=== PATIENT | male | born 1960 | race Caucasian/White ===

== ENCOUNTER 2018-07-14 16:45 | Inpatient (IN) ==
[2018-07-14] MEDS ORDERED: 0.9 % SODIUM CHLORIDE 1,000 ML IV ONE (16:59)
[2018-07-14] MEDS ORDERED: IPRATROPIUM/ALBUTEROL 3 ML AMPUL.NEB NEB ONE ×2 (16:59→17:45)
--- NOTE | 2018-07-14 17:05 | Emergency Department Note ---
General Adult HPI - General Chief complaint: Cold/Flu Symptoms Stated complaint: Cough, body aches Time Seen by Provider: 07/14/18 16:56 Source: patient Mode of arrival: ambulatory Limitations: no limitations - History of Present Illness HPI Narrative: 58-year-old male presents with cough, shortness of breath, and generally not feeling well for the last 3-4 days. He arrived with oxygen saturations of 78% on room air in triage. States he has had a bad cough but cannot cough anything up. Has body aches all over. Positive chills, unknown fever. No nausea, vomiting, or diarrhea. No sore throat or ear pain. States his son was recently diagnosed with pneumonia. Associated symptoms: Reports: cough, diaphoresis, fever/chills, malaise, shortness of breath. Denies: confusion, chest pain, headaches, loss of appetite , nausea/vomiting, rash, syncope, weakness - Related Data Allergies Allergy/AdvReac Type Severity Reaction Status Date / Time No Known Drug Allergies Allergy Verified 07/14/18 16:46 Review of Systems All systems ED: reviewed and negative except as stated. Past Medical History - Past Medical History [facility] Narrative: Medical History Laceration of palm without complication (Acute) Nausea, vomiting and diarrhea (Acute) Headache (Acute) Medical history: Reports: no medical history, hypertension, other (Emphysema.). Denies: asthma, cancer, CVA, DM, hyperlipidemia, myocardial infarction, thyroid disease Surgical history ED: Reports: non-contributory - Social History smoking status: Current every day smoker Alcohol use: Reports: None Drug use: Reports: none. Denies: marijuana Physical Exam Limitations: no limitations General appearance: alert, other (Moderate distress on arrival with labored breathing and oxygen saturations in the high 70s on room air. Unkept, clothes and skin very dirty.) Head: atraumatic, normocephalic, normal inspection Eye: Present: normal appearance. Absent: conjunctival injection ENT: normal oropharynx, mucous membranes moist, TM's normal bilaterally, normal external ear exam Neck: Present: normal inspection, trachea midline. Absent: tenderness, lymphadenopathy Chest: Present: symmetric chest wall rise Respiratory: Present: respiratory distress (Moderate respiratory distress on arrival with labored breathing, oxygen saturations on the the 70s on room air, mild accessory muscle use), wheezes (Lung sounds diminished throughout and expiratory wheezing), accessory muscle use. Absent: stridor Cardiovascular: Present: regular rate, normal heart sounds Extremities: Present: normal inspection. Absent: pedal edema Neurological: Present: alert, oriented X3 Psychiatric: Present: normal affect, normal mood Skin: Present: warm, dry, intact, normal color Course Course Narrative: Patients continue working hard to breathe throughout his ER visit. He is currently 88% on 6 L. We are going to switch him over to some BiPAP. At 1840 I did speak with the hospitalist, Dr. Guzman who agrees to accept this patient. Vital Signs Temperature 97.1 F 07/14/18 16:45 Pulse Rate 96 H 07/14/18 16:45 Respiratory Rate 40 H 07/14/18 16:45 Blood Pressure 168/121 07/14/18 16:45 Pulse Oximetry (%) 76 L 07/14/18 16:45 Temperature 97.1 F 07/14/18 16:45 Pulse Rate 90 07/14/18 18:39 Respiratory Rate 27 H 07/14/18 18:39 Blood Pressure 211/121 07/14/18 18:38 Pulse Oximetry (%) 100 07/14/18 18:39 Medical Decision Making - Lab Data Lab results reviewed: Yes I reviewed the patient's lab results. Result diagrams: 07/14/18 17:25 07/14/18 17:25 Lab Results 07/14/18 07/14/18 07/14/18 Range/Units 17:21 17:25 17:25 WBC 10.9 (4.5-11.0) K/mcL RBC 4.95 (4.50-5.90) M/mcL Hgb 16.4 (13.5-16.5) g/dL Hct 47.7 (41.0-55.0) % POC Hct 51.0 (41.0-55.0) % MCV 96.3 (80.0-100.0) fL MCH 33.0 (26.0-34.0) pg MCHC 34.3 (31.0-36.0) g/dL RDW 13.1 (11.5-14.5) % Plt Count 231 (140-440) K/mcL MPV 9.7 (7.4-10.4) fL Gran % 85.0 H (38.0-78.0) % Lymph % (Auto) 6.1 L (15.5-49.0) % Centre % (Auto) 8.7 (1.0-12.0) % Eos % (Auto) 0 (0.0-7.0) % Baso % (Auto) 0.2 (0.0-2.0) % Gran # 9.3 H (1.8-8.0) K/mcL Lymph # (Auto) 0.7 L (1.5-4.8) K/mcL Centre # (Auto) 0.9 (0.1-0.9) K/mcL Eos # (Auto) 0 (0.0-0.7) K/mcL Baso # (Auto) 0 (0.0-0.3) K/mcL VBG Lactic Acid 2.4 H (0.5-2.0) mmol/L POC Sodium 135 (133-145) mmol/L Sodium 136 (133-145) mmol/L POC Potassium 3.0 L (3.3-5.1) mmol/L Potassium 3.2 L (3.3-5.1) mmol/L POC Chloride 89 L (96-108) mmol/L Chloride 89 L (96-108) mmol/L Carbon Dioxide 30 (22-30) mmol/L POC Total CO2 33 H (22-30) mmol/L Anion Gap 17.0 H (8-16) POC BUN 18 (6-20) mg/dl BUN 17 (6-20) mg/dl Creatinine 1.4 H (0.7-1.2) mg/dl POC Creatinine 1.3 H (0.7-1.2) mg/dl GFR Calculation 55 Glucose 112 H (70-105) mg/dL POC Glucose 110 H (70-105) mg/dL Calcium 9.3 (8.6-10.4) mg/dl POC WB Ioniz Calcium 1.06 L (1.16-1.32) mmol/L Total Bilirubin 0.4 (0.0-1.0) mg/dL AST 39 H (0-37) U/l ALT 16 (0-40) U/l Alkaline Phosphatase 67 (39-117) U/L Troponin T (0-0.03) ng/ml Total Protein 7.4 (5.9-8.4) gm/dL Albumin 4.3 (3.2-5.2) gm/dL Globulin 3.1 (2.2-3.7) gm/dL Albumin/Globulin Ratio 1.4 (1.0-2.3) 07/14/ Range/Units 17:25 WBC (4.5-11.0) K/mcL RBC (4.50-5.90) M/mcL Hgb (13.5-16.5) g/dL Hct (41.0-55.0) % POC Hct (41.0-55.0) % MCV (80.0-100.0) fL MCH (26.0-34.0) pg MCHC (31.0-36.0) g/dL RDW (11.5-14.5) % Plt Count (140-440) K/mcL MPV (7.4-10.4) fL Gran % (38.0-78.0) % Lymph % (Auto) (15.5-49.0) % Centre % (Auto) (1.0-12.0) % Eos % (Auto) (0.0-7.0) % Baso % (Auto) (0.0-2.0) % Gran # (1.8-8.0) K/mcL Lymph # (Auto) (1.5-4.8) K/mcL Centre # (Auto) (0.1-0.9) K/mcL Eos # (Auto) (0.0-0.7) K/mcL Baso # (Auto) (0.0-0.3) K/mcL VBG Lactic Acid (0.5-2.0) mmol/L POC Sodium (133-145) mmol/L Sodium (133-145) mmol/L POC Potassium (3.3-5.1) mmol/L Potassium (3.3-5.1) mmol/L POC Chloride (96-108) mmol/L Chloride (96-108) mmol/L Carbon Dioxide (22-30) mmol/L POC Total CO2 (22-30) mmol/L Anion Gap (8-16) POC BUN (6-20) mg/dl BUN (6-20) mg/dl Creatinine (0.7-1.2) mg/dl POC Creatinine (0.7-1.2) mg/dl GFR Calculation Glucose (70-105) mg/dL POC Glucose (70-105) mg/dL Calcium (8.6-10.4) mg/dl POC WB Ioniz Calcium (1.16-1.32) mmol/L Total Bilirubin (0.0-1.0) mg/dL AST (0-37) U/l ALT (0-40) U/l Alkaline Phosphatase (39-117) U/L Troponin T < 0.01 (0-0.03) ng/ml Total Protein (5.9-8.4) gm/dL Albumin (3.2-5.2) gm/dL Globulin (2.2-3.7) gm/dL Albumin/Globulin Ratio (1.0-2.3) - Radiology Data Radiology results reviewed: Yes I reviewed the patient's radiology results. Disposition Pt seen by DIESEL ENGINE INSPECTOR/PA only: No Clinical Impression: SOB (shortness of breath), COPD (chronic obstructive pulmonary disease), Pneumonia, Hypoxia, Hypokalemia Disposition: Xfer As Inpt ([facility]) Condition: Serious Referrals: No,PCP [Primary Care Provider] - Time of Disposition: 18:41
--- NOTE | 2018-07-14 17:41 | XRay Report ---
CLINICAL INFORMATION: dyspnea COMPARISON: 11/30/2017 FINDINGS: Heart size, mediastinum and pulmonary vessels are normal. Moderate COPD changes are again noted. Scattered small calcified granulomas in the perihilar regions seen - as before. The bronchovascular markings in the right upper lobe are more prominent than on previous study which may indicate a developing infiltrate. Africa B lines are seen in the lateral bases. No effusions IMPRESSION: COPD changes. Possible developing right upper lobe infiltrate. If there is clinical support for pneumonia, suggest two-view follow-up chest x-ray one to two days Interpreted and Authenticated by: Keagan Arzola 07/14/18
[2018-07-14 18:01] LABS: Basophils # (Auto) 0 K/mcL (0.0-0.3); Basophils % (Auto) 0.2 % (0.0-2.0); Eosinophils # (Auto) 0 K/mcL (0.0-0.7); Eosinophils % (Auto) 0 % (0.0-7.0); Lymphocytes # (Auto) 0.7 K/mcL (1.5-4.8); Lymphocytes % (Auto) 6.1 % (15.5-49.0); Mean Cell Volume 96.3 fL (80.0-100.0); Mean Corpuscular HGB Conc 34.3 g/dL (31.0-36.0); Monocytes # (Auto) 0.9 K/mcL (0.1-0.9); Monocytes % (Auto) 8.7 % (1.0-12.0); Platelet Count 231 K/mcL (140-440); RBC 4.95 M/mcL (4.50-5.90); Red Cell Distribution Width 13.1 % (11.5-14.5)
[2018-07-14 18:25] LABS: ALT/SGPT 16 U/l (0-40); Albumin 4.3 gm/dL (3.2-5.2); Albumin/Globulin Ratio 1.4 (1.0-2.3); Alkaline Phosphatase 67 U/L (39-117); Blood Urea Nitrogen 17 mg/dl (6-20)
[2018-07-14] MEDS ORDERED: LACTATED RINGERS 1,000 ML IV ONE (18:26)
[2018-07-14] MEDS ORDERED: AZITHROMYCIN 500 MG in DEXTROSE 5% IN WATER 250 ML IV ONE (18:27)
[2018-07-14] MEDS ORDERED: POTASSIUM CHLORIDE 20 MEQ in DEXTROSE 5% IN WATER 250 ML IV ONE (18:28)
--- NOTE | 2018-07-14 18:40 | Emergency Department Note ---
ED Note Addendum Note Addendum: I discussed this case with the mid-level provider and agree with admission to the ICU on BiPAP.
[2018-07-14] MEDS ORDERED: FUROSEMIDE 40 MG/4 ML VIAL IV ONE (18:59)
--- NOTE | 2018-07-14 19:49 | Internal Med History&Physical ---
Medical - H&P: [facility] Patient information: Note initiated : 07/14/18 at 7:46 pm Service Date, if different from initiated Date: [] Patient: Breezy Barnard a 58 y/o M admitted on for Cough, body aches. Chief Complaint: [] History of present illness: Mr. Barnard is a 58 year old M who presents with cough shortness of breath malaise for 3-4 days. He reports he is had a cough for about 3 days which she says is dry. He has been around a relative that was sick, however, he denies any fevers or chills. Denies any myalgias does have worsening knee pain. That is a chronic injury and is chronic chronic back pain. He has shortness of breath both states that it actually is little bit better than it was a couple days ago. He says he had a hard time sleeping the past 3 nights that the main reason he came in. He denies having any shortness of breath when he lays flat on his back, no orthopnea. Denies any edema. Denies any history of heart or lung disease. States he is urinating just fine and that is of pale yellow. Last time he saw a primary care provider was he says 20 years ago. When he arrived in the ER his oxygen saturations were in the high 70s on room air. He did receive several breathing treatments which she says did help him but he still was quite tachypneic and using accessory muscles and was subsequently put on BiPAP. Chest x-ray with some cephalization and Africa B line patient was given 40 of Lasix and put out 1000 in the Sr bag. I saw him in the ICU he had 400 additional cc in the bag. Also found to be hypertensive in the ED. He does not have any known medical conditions and does not take any home medications. Review of Systems: Pertinent positive as above . denies headache/fever/chills/nausea/vomiting/ chest or abdominal pain/diarrhea. 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 Is at home with mother and brother Is unemployed, works on cars on the house Medical - H&P: Meds Home Medications Medication Instructions Recorded Confirmed Type No Known Home Meds 07/14/18 07/14/18 History Allergies Allergy/AdvReac Type Severity Reaction Status Date / Time No Known Drug Allergies Allergy Verified 07/14/18 16:46 Medical - H&P: Exam - Constitutional Vitals: Temp Pulse Resp BP Pulse Ox 97.1 F 89 27 H 193/118 94 07/14/18 16:45 07/14/18 19:42 07/14/18 19:42 07/14/18 19:31 07/14/18 19:42 Exam: General: Alert, Awake, disheveled, no acute distress at this time Eyes/N/T: EOMI, PEERL, Head/Neck: neck supple, hepatojugular reflux, normocephalic atraumatic CV: RRR, possible gallop difficult to distinguish given his tachypnea, no murmurs Pulm: Significantly diminished bilaterally, shallow breathing, mild fine rales bilaterally, no wheezing Abd: soft, nontender, +BS x4 Ext: no clubbing/cyanosis/edema Neuro: Alert, no focal deficits, moves all extremities, CN 2-12 grossly intact, symmetrical strength b/l upper/lower, sensations intact b/l upper/lower Skin: warm/dry Medical - H&P: Reslt - Labs CBC & Chem 7: 07/14/18 17:25 07/14/18 17:25 Labs: Short CBC 07/14/18 Range/Units 17:25 WBC 10.9 (4.5-11.0) K/mcL Hgb 16.4 (13.5-16.5) g/dL Hct 47.7 (41.0-55.0) % Plt Count 231 (140-440) K/mcL BMP 07/14/18 17:25 Sodium 136 Potassium 3.2 L Chloride 89 L Carbon Dioxide 30 BUN 17 Creatinine 1.4 H Glucose 112 H Calcium 9.3 Cardiac Enzymes 07/14/18 Range/Units 17:25 Troponin T < 0.01 (0-0.03) ng/ml Liver Function 07/14/18 Range/Units 17:25 Total Bilirubin 0.4 (0.0-1.0) mg/dL AST 39 H (0-37) U/l ALT 16 (0-40) U/l Alkaline Phosphatase 67 (39-117) U/L Albumin 4.3 (3.2-5.2) gm/dL - Impressions EKG sinus tachycardia Chest x-ray with COPD changes, cephalization. Radiology read with questionable infiltrate right upper lobe and some curly B-lines. Medical - H&P: A/P - Narrative A/P Narrative: A: *Acute hypoxic respiratory failure -on bipap -low PCT, nonproductive cough, no fevers *AECHF, on likely chronic: *Lactic acidosis: 2/2 hypoxia *RADHA vs CKD (unknown baseline) *Hypokalemia: *Tobacco abuse *HTN: *Has not seen a PCP in 20yrs P: -Bipap support, wean -s/p IV lasix, i/o's and weights -echo pending -IS -nitro bid, prn bp meds -electrolyte replete -urine lytes -records from [facility] -smoking cessation counseling -ppx: lovenox
[2018-07-14] MEDS ORDERED: POTASSIUM CHLORIDE 20 MEQ TABLET PO ONE ×3 (20:03→20:47)
[2018-07-14 20:09] LABS: Appearance,Urine CLEAR; Bacteria,Urine 0 /hpf (0); Bilirubin,Urine NEG (NEG); Color,Urine YELLOW; Glucose,Urine (UA) NEGATIVE (NEG); Leukocyte Esterase,Urine NEG /uL (NEG); Mucus,Urine FEW /hpf (0); Protein,Urine 100 mg/dL (NEG); Specific Gravity,Urine 1.013 (1.000-1.035); Urine Blood 0.03 mg/dL (<0.03); Urine Hyaline Cast 13 /lpf (0-2); Urine RBC 1 /hpf (0-1); Urine Squamous Epithelial Cell 0 /hpf (0-4); Urine WBC 3 /hpf (0-4); Urobilinogen,Urine NEG (NEG)
[2018-07-14] MEDS ORDERED: NITROGLYCERIN 5 MG (0.2 MG/HR) PATCH TOPICAL ONE ×3 (20:26→20:47)
[2018-07-14] MEDS ORDERED: ACETAMINOPHEN 325 MG TABLET PO PRN (20:37)
[2018-07-14] MEDS ORDERED: ONDANSETRON 4 MG/2 ML VIAL IV PRN ×2 (20:37→20:47)
[2018-07-14] MEDS ORDERED: IPRATROPIUM/ALBUTEROL 3 ML AMPUL.NEB NEB PRN ×2 (20:37→20:47)
[2018-07-14] MEDS ORDERED: LABETALOL HCL 20 MG/4 ML SYRINGE IV PRN (20:41)
[2018-07-14] MEDS ORDERED: FAMOTIDINE 20 MG TABLET PO SCH ×2 (21:00)
[2018-07-14] MEDS: LABETALOL 5 MG/ML ML IV PRN ×2 (21:05→22:31)
[2018-07-14] MEDS: 0.9 % SODIUM CHLORIDE 10 ML SYRINGE IV SCH (21:13)
[2018-07-14] MEDS ORDERED: 0.9 % SODIUM CHLORIDE 10 ML SYRINGE IV SCH (22:00)
[2018-07-14] MEDS ORDERED: LORazepam 2 MG/ML VIAL IV ONE (23:44)
[2018-07-14] MEDS ORDERED: LORazepam 2 MG/ML VIAL ONE (23:45)
[2018-07-15] MEDS ORDERED: IPRATROPIUM/ALBUTEROL 3 ML AMPUL.NEB NEB ONE (00:17)
[2018-07-15] MEDS ORDERED: LORazepam 2 MG/ML VIAL ONE (00:36)
[2018-07-15] MEDS ORDERED: LORazepam 2 MG/ML VIAL IV ONE (00:45)
[2018-07-15] MEDS ORDERED: IPRATROPIUM/ALBUTEROL 3 ML AMPUL.NEB NEB SCH (01:00)
[2018-07-15] MEDS ORDERED: MIDAZOLAM 5 MG/5 ML VIAL IV ONE (01:04)
[2018-07-15] MEDS ORDERED: fentaNYL 100 MCG/2 ML VIAL IV ONE ×2 (01:05→01:08)
[2018-07-15] MEDS ORDERED: MIDAZOLAM 2 MG/2 ML VIAL ONE ×2 (01:08→01:38)
[2018-07-15] MEDS ORDERED: MIDAZOLAM PF 50 MG in 0.9 % SODIUM CHLORIDE 90 ML IV SCH (01:15)
[2018-07-15] MEDS ORDERED: ONDANSETRON 4 MG/2 ML VIAL IV ONE (01:15)
--- NOTE | 2018-07-15 01:57 | Procedure Note ---
Procedures - Intubation Time out performed: Yes Date of Procedure: 07/15/18 Sedative: Versed Mg given: 6 ETT: ETCO2 Laryngoscope: Vida (3) ET tube size: 7.5 Tube secured depth (cm): 27 Tube secured location: lips Tube placement confirmation: confirmation by capnometry # of Attempts: 1 Patient tolerated procedure: well Intubation complications: none
[2018-07-15 02:41] LABS: Amphetamine Screen,Urine NONE DETECTED (NONDETECTED); Benzodiazepines Screen,Urine NONE DETECTED (NONDETECTED); Cocaine Screen,Urine NONE DETECTED (NONDETECTED); Opiate Screen,Urine NONE DETECTED (NONDETECTED); Oxycodone, Urine Screen NONE DETECTED (NONDETECTED)
[2018-07-15] MEDS: IPRATROPIUM/ALBUTEROL 3 ML AMPUL.NEB NEB SCH ×4 (02:54→18:54)
[2018-07-15] MEDS: PIPERACILLIN SODIUM/TAZOBACTAM 3.375 GM in DEXTROSE 5% IN WATER 50 ML IV SCH ×4 (03:30→17:43)
[2018-07-15] MEDS: OSELTAMIVIR PHOSPHATE 75 MG CAPSULE PO SCH ×3 (03:30→20:59)
[2018-07-15 05:56] LABS: Basophils # (Auto) 0 K/mcL (0.0-0.3); Basophils % (Auto) 0.2 % (0.0-2.0); Eosinophils # (Auto) 0 K/mcL (0.0-0.7); Eosinophils % (Auto) 0 % (0.0-7.0); Granulocytes % (Auto) 89.7 % (38.0-78.0); Lymphocytes # (Auto) 0.5 K/mcL (1.5-4.8); Lymphocytes % (Auto) 5.4 % (15.5-49.0); Mean Cell Volume 96.4 fL (80.0-100.0); Mean Corpuscular HGB Conc 33.6 g/dL (31.0-36.0); Monocytes # (Auto) 0.5 K/mcL (0.1-0.9); Monocytes % (Auto) 4.7 % (1.0-12.0); Platelet Count 184 K/mcL (140-440); RBC 4.47 M/mcL (4.50-5.90); Red Cell Distribution Width 13.3 % (11.5-14.5)
[2018-07-15] MEDS: 0.9 % SODIUM CHLORIDE 10 ML SYRINGE IV SCH ×4 (06:09→21:00)
[2018-07-15 06:43] LABS: ALT/SGPT 20 U/l (0-40); Albumin 3.6 gm/dL (3.2-5.2); Albumin/Globulin Ratio 1.2 (1.0-2.3); Alkaline Phosphatase 61 U/L (39-117); Bilirubin,Direct < 0.2 mg/dL (0.0-0.3); Blood Urea Nitrogen 22 mg/dl (6-20); Gamma Glutamyl Transpeptidase 22 U/L (8-61); Uric Acid 6.5 mg/dL (2.5-8.0)
--- NOTE | 2018-07-15 07:34 | Internal Med Progress Note ---
Medical - PN: Subj Patient information: Note initiated : 07/15/18 at 7:26 am Service Date, if different from initiated Date: [] Patient: Breezy Barnard 58 y/o M admitted on 07/14/18 for Cough, body aches. Chief Complaint: [] Interval history: Mr. Barnard is a 58 year old M who presents with cough shortness of breath malaise for 3-4 days. He reports he is had a cough for about 3 days which she says is dry. He has been around a relative that was sick, however, he denies any fevers or chills. Denies any myalgias does have worsening knee pain. That is a chronic injury and is chronic chronic back pain. He has shortness of breath both states that it actually is little bit better than it was a couple days ago. He says he had a hard time sleeping the past 3 nights that the main reason he came in. He denies having any shortness of breath when he lays flat on his back, no orthopnea. Denies any edema. Denies any history of heart or lung disease. States he is urinating just fine and that is of pale yellow. Last time he saw a primary care provider was he says 20 years ago. When he arrived in the ER his oxygen saturations were in the high 70s on room air. He did receive several breathing treatments which she says did help him but he still was quite tachypneic and using accessory muscles and was subsequently put on BiPAP. Chest x-ray with some cephalization and Africa B line patient was given 40 of Lasix and put out 1000 in the Sr bag. I saw him in the ICU he had 400 additional cc in the bag. Also found to be hypertensive in the ED. He does not have any known medical conditions and does not take any home medications. 07/15 Patient can continued to become more more tachypneic last night until the need for intubation was seen. Currently sedated on the vent. No acute distress. Titrating down FiO2. Respiratory rate 20s-30. ROS: Unable to obtain given sedated on the vent - Constitutional Vitals: Vital Signs Temp Pulse Resp BP Pulse Ox 100.0 F H 115 H 29 H 123/96 100 07/15/18 00:01 07/15/18 06:31 07/15/18 06:31 07/15/18 06:31 07/15/18 06:31 Period Temp Pulse Resp BP Sys/Madrigal Pulse Ox Last 24 Hr 97.1 F-100.0 F 78-115 15-55 93-218/69-139 76-100 Intake and Output 07/14/18 07/15/18 07/15/18 21:59 05:59 13:59 Intake Total 2553 / 2553 61 / 61 Output Total 2100 / 2099 380 / 380 Balance 453 / 453 -319 / -319 Weight 59.511 kg Intake & Output: Intake & Output 07/14/18 07/15/18 07/15/18 21:59 05:59 13:59 Intake Total 2553 / 2553 61 / 61 Output Total 2100 / 2099 380 / 380 Balance 453 / 453 -319 / -319 Weight 59.511 kg Intake: IV 2192 / 3 / Sodium Chloride 0.9% 1,000 ml @ 1000 / 1000 Wide Open IV .Q0M ONE Rx#: [id number] Lactated Ringers 1,000 ml @ 683 / 683 Wide Open IV BOLUS ONE Rx#: [id number] Versed 50 mg In Sodium Chloride 11 / 11 0.9% 90 ml @ 0.02 MG/KG/HR 2. 38 mls/hr IV Q24H [facility] Rx#: [id number] Zosyn 3.375 gm In Dextrose 5% 50 / 50 in Water 50 ml @ 100 mls/hr IV Q6H [facility] Rx#:[id number] Oral 360 / 360 Output: Urine Catheter Amount 1100 / 1100 380 / 380 Void Amount 1000 / 1000 Other: Meal Egg salad sandwich and fruit cup. Percent of Meal Consumed 100% Feeding Ability Independent Urine Appearance Clear Clear Uretheral (Sr) Clear Clear Urine Color Pale Dark Yellow Uretheral (Sr) Pale Pale Exam: General: sedated on vent, disheveled, no acute distress Eyes/N/T: PEERL, Head/Neck: neck supple, CV: mildly tachy but regular, no murmurs Pulm: diminished bilaterally but improving, mild and subtle fine rales bilaterally, no wheezing Abd: soft, +BS x4 Ext: no clubbing/cyanosis/edema Neuro: sedated on vent, moves all extremities spontaneously. Skin: warm/dry Medical - PN: Obj Da - Labs CBC & Chem 7: 07/15/18 03:40 07/15/18 03:40 Labs: Abnormal Lab Results 07/15/18 07/15/18 07/14/18 03:40 03:40 19:20 RBC 4.47 L Gran % 89.7 H Lymph % (Auto) 5.4 L Gran # 8.7 H Lymph # (Auto) 0.5 L VBG Lactic Acid POC Potassium Potassium POC Chloride Chloride 94 L POC Total CO2 Anion Gap BUN 22 H Creatinine 1.5 H POC Creatinine Glucose 121 H POC Glucose POC WB Ioniz Calcium AST 48 H Lactate Dehydrogenase 375 H NT-Pro-B Natriuret Pep Urine Protein 100 A Urine Ketones 5/tr A Urine Occult Blood 0.03 A Hyaline Casts 13 H 07/14/18 07/14/18 07/14/18 17:25 17:25 17:22 RBC Gran % 85.0 H Lymph % (Auto) 6.1 L Gran # 9.3 H Lymph # (Auto) 0.7 L VBG Lactic Acid POC Potassium 3.0 L Potassium 3.2 L POC Chloride 89 L Chloride 89 L POC Total CO2 33 H Anion Gap 17.0 H BUN Creatinine 1.4 H POC Creatinine 1.3 H Glucose 112 H POC Glucose 110 H POC WB Ioniz Calcium 1.06 L AST 39 H Lactate Dehydrogenase NT-Pro-B Natriuret Pep 34416.0 H Urine Protein Urine Ketones Urine Occult Blood Hyaline Casts 07/14/18 17:21 RBC Gran % Lymph % (Auto) Gran # Lymph # (Auto) VBG Lactic Acid 2.4 H POC Potassium Potassium POC Chloride Chloride POC Total CO2 Anion Gap BUN Creatinine POC Creatinine Glucose POC Glucose POC WB Ioniz Calcium AST Lactate Dehydrogenase NT-Pro-B Natriuret Pep Urine Protein Urine Ketones Urine Occult Blood Hyaline Casts Meds: Medications Acetaminophen (Tylenol) 650 mg PO Q6HP PRN PRN Reason: PAIN/FEVER > 101 Albuterol/Ipratropium (Duoneb) 3 ml NEB Q4HP PRN PRN Reason: Bronchospasm Last Admin: 07/15/18 00:03 Dose: 3 ml Albuterol/Ipratropium (Duoneb) 3 ml NEB Q6HRT [facility] Last Admin: 07/15/18 07:16 Dose: 3 ml Chlorhexidine Gluconate (Peridex) 15 ml SWABMOUTH BID [facility] Enoxaparin Sodium (Lovenox) 40 mg SQ DAILY [facility] Famotidine (Pepcid) 20 mg PO HS [facility] Last Admin: 07/14/18 21:39 Dose: 20 mg Famotidine (Pepcid) 20 mg IV HS [facility] Midazolam HCl 50 mg/ Sodium (Chloride) 100 mls @ 2.38 mls/hr IV Q24H [facility]; Protocol Last Titration: 07/15/18 03:30 Dose: 0.15 mg/kg/hr, 17.85 mls/hr Piperacillin Sod/Tazobactam (Sod 3.375 gm/ Dextrose) 50 mls @ 100 mls/hr IV Q6H [facility] Last Infusion: 07/15/18 04:00 Dose: Infused Labetalol HCl (Trandate) 0 mg IV Q2HP PRN PRN Reason: htn Last Admin: 07/14/18 22:31 Dose: 20 mg Ondansetron HCl (Zofran) 4 mg IV Q4HP PRN PRN Reason: Nausea And Vomiting Oseltamivir Phosphate (Tamiflu) 75 mg PO BID [facility] Last Admin: 07/15/18 03:30 Dose: Not Given Sodium Chloride (Saline Flush) 10 ml IV Q8 [facility] Last Admin: 07/15/18 06:09 Dose: 10 ml Medical - PN: A/P - Time Spent With Patient Total time spent is greater than 50% in coordination of care (as documented) at patient's floor/unit and/or counseling patient: - Narrative A/P Narrative: A: *PNA (INFLUENZA A): concern for ARDS *Acute hypoxic respiratory failure -Intubated early on 07/15 -low PCT, nonproductive cough, no fevers *possible acute on chronic chf: difficult to delineate give underlying condition and suspected ARDS, mixed clinical picture. But appears more as inflammatory response at this point. -nonproductive cough, but cxr with africa B per radiology, also appeared to have some cephalization (However looking at old cxr this is noticeable as well although not as prominent), no peripheral edema. Significantly elevated BNP in setting of some renal dysfxn. Given IVF in ED then lasix in ED with >1400cc UOP, but respiratory status did not seem to improve. Fever overnight. PaO2/Fio2 <300 and subsequently less than 200. Although Fio2 requirement is not significant. *Lactic acidosis: 2/2 hypoxia, resolved *RADHA vs CKD (unknown baseline): FENa >1%, suspect CKD, perhaps at baseline *Hypokalemia: *Tobacco abuse *HTN: *Has not seen a PCP in 20yrs P: -vent support, weaning trials - -echo pending -IS when extubated -prn bp meds -electrolyte replete -renal u/s pending -smoking cessation counseling -ppx: lovenox Medical - PN: Qual - VTE Deep Vein Thrombosis/Pulmonary Embolism Present on Admission: No
[2018-07-15] MEDS ORDERED: 0.45 % SODIUM CHLORIDE 1,000 ML IV SCH ×2 (07:45→10:11)
--- NOTE | 2018-07-15 08:34 | XRay Report ---
HISTORY: Nasogastric tube insertion FINDINGS: A nasogastric tube has been inserted, with the tip in the upper fundus of the stomach. The sidehole is located just above the gastroesophageal junction. Stomach is decompressed. The bowel pattern is normal. No free intra-abdominal air is present. A large amount of calcified plaque is present in the iliac arteries. IMPRESSION: Nasogastric tube in the upper stomach Interpreted and Authenticated by: Cristobal Mccullough 07/15/18
--- NOTE | 2018-07-15 08:39 | XRay Report ---
HISTORY: COPD, shortness of breath and intubated FINDINGS: Endotracheal tube has been inserted. The tip is at the level of the aortic arch. Lungs remain hyperinflated. There are subtle increased interstitial lung markings bilaterally which may be a combination of mild pulmonary fibrosis and a superimposed interstitial inflammatory process. There is no lobar consolidation, mass, adenopathy, pneumothorax or pleural effusion. The heart size is normal. IMPRESSION: Well-positioned endotracheal tube COPD with underlying interstitial fibrosis/inflammation Interpreted and Authenticated by: Cristobal Mccullough 07/15/18
--- NOTE | 2018-07-15 08:46 | Emergency Department Note ---
ED Note Addendum Note Addendum: I discussed this case with the mid-level provider and agree with the assessment and plan.
[2018-07-15] MEDS ORDERED: ENOXAPARIN 40 MG/0.4 ML SYRINGE SQ SCH (09:00)
[2018-07-15] MEDS: MIDAZOLAM PF 50 MG in 0.9 % SODIUM CHLORIDE 90 ML IV SCH ×2 (09:11→16:15)
[2018-07-15] MEDS: ENOXAPARIN 40 MG/0.4 ML SYRINGE SQ SCH (10:06)
[2018-07-15] MEDS: CHLORHEXIDINE GLUCONATE 1 ML ORAL.SOL SWABMOUTH SCH ×2 (10:06→20:58)
--- NOTE | 2018-07-15 10:46 | Cat Scan Report ---
CLINICAL INFORMATION: Worsening respiratory distress and intubated COMPARISON: Chest x-ray on 07/15/18 TECHNIQUE: 2.5 mm axial slices were obtained from the lung apices through the bases without intravenous contrast. Sagittal, coronal and axial reformatted images were processed and reviewed at bone, lung and soft tissue windows. 7 mm axial MIP images were also reconstructed. The radiation exposure was limited using dose reduction technology. FINDINGS: Patient has mild to moderate centrilobular emphysema, predominantly involving the upper lobes. There is underlying mild interstitial fibrosis. There are thick bands of scar or discoid atelectasis in the medial segment of the right middle lobe. Adjacent to these linear bands of tissue there are subtle groundglass alveolar opacities which are consistent with an acute inflammatory reaction. There is no lobar consolidation or evidence of a mass. Smaller bands of scar tissue or atelectasis are seen in the lingula. There is no pleural effusion. No enlarged lymph nodes are seen on this nonenhanced study. The endotracheal tube and nasogastric tube are well-positioned. The heart is normal in size. There is moderate amount calcified plaque in the coronary arteries. The aorta is normal in caliber. IMPRESSION: Emphysema Mild infiltrate in the right middle lobe adjacent to thick bands of scar or discoid atelectasis Moderate atherosclerotic coronary artery disease Interpreted and Authenticated by: Cristobal Mccullough 07/15/18
--- NOTE | 2018-07-15 10:51 | Ultrasound Report ---
History: Acute kidney injury FINDINGS: The right kidney measures 4.8 x 5.2 x 12.4 cm. The left kidney is smaller and measures 3.2 x 3.3 x 9.1 cm. There is no hydronephrosis in either kidney. Renal parenchyma is mildly echogenic bilaterally due to chronic medical renal disease. There is relatively mild thinning of the renal cortex in the left kidney compared to the right. Doppler shows normal flow velocities and waveform patterns in the aorta and right renal artery. There is an elevated peak systolic flow velocity of 169 cm/s in the proximal left renal artery. The mid left renal artery is 118 and the distal left renal artery is 289 cm/s. Within the parenchyma both kidneys there are normal waveform patterns and flow velocities. IMPRESSION: Hemodynamically significant stenosis in the distal left renal artery. Mild atrophy of the left kidney. Echogenic parenchyma in both kidneys due to chronic medical renal disease. No evidence of urinary tract obstruction Interpreted and Authenticated by: Cristobal Mccullough 07/15/18
[2018-07-15] MEDS ORDERED: ACETAMINOPHEN 1,000 MG/100 ML BOTTLE IV ONE (11:21)
[2018-07-15] MEDS: fentaNYL 100 MCG/2 ML VIAL IV PRN ×2 (15:13→18:00)
[2018-07-15] MEDS ORDERED: 0.9 % SODIUM CHLORIDE 250 ML IV ONE (17:05)
[2018-07-15] MEDS: 0.9 % SODIUM CHLORIDE 1,000 ML IV SCH (17:35)
[2018-07-15] MEDS: 0.9 % SODIUM CHLORIDE 250 ML IV SCH (19:00)
[2018-07-15] MEDS: AZITHROMYCIN 500 MG in DEXTROSE 5% IN WATER 250 ML IV SCH (19:53)
[2018-07-15] MEDS: FAMOTIDINE/PF 20 MG/2 ML VIAL IV SCH (20:59)
[2018-07-15] MEDS: LABETALOL 5 MG/ML ML IV PRN ×2 (23:12→23:43)
[2018-07-16] MEDS: PIPERACILLIN SODIUM/TAZOBACTAM 3.375 GM in DEXTROSE 5% IN WATER 50 ML IV SCH ×4 (00:52→17:39)
[2018-07-16] MEDS: ACETAMINOPHEN 325 MG TABLET PO PRN ×2 (01:03→12:40)
[2018-07-16] MEDS: fentaNYL 100 MCG/2 ML VIAL IV PRN ×7 (01:05→22:45)
[2018-07-16] MEDS: IPRATROPIUM/ALBUTEROL 3 ML AMPUL.NEB NEB SCH ×4 (02:47→19:07)
[2018-07-16] MEDS: 0.9 % SODIUM CHLORIDE 1,000 ML IV SCH ×2 (05:30→16:29)
[2018-07-16 05:47] LABS: Basophils # (Auto) 0 K/mcL (0.0-0.3); Basophils % (Auto) 0.4 % (0.0-2.0); Eosinophils # (Auto) 0 K/mcL (0.0-0.7); Eosinophils % (Auto) 0 % (0.0-7.0); Granulocytes % (Auto) 88.8 % (38.0-78.0); Lymphocytes # (Auto) 0.6 K/mcL (1.5-4.8); Lymphocytes % (Auto) 7.5 % (15.5-49.0); Monocytes # (Auto) 0.3 K/mcL (0.1-0.9); Monocytes % (Auto) 3.3 % (1.0-12.0); Platelet Count 160 K/mcL (140-440); RBC 4.01 M/mcL (4.50-5.90); Red Cell Distribution Width 13.1 % (11.5-14.5)
[2018-07-16 06:34] LABS: ALT/SGPT 24 U/l (0-40); Albumin 2.7 gm/dL (3.2-5.2); Albumin/Globulin Ratio 1.1 (1.0-2.3); Alkaline Phosphatase 45 U/L (39-117); Bilirubin,Direct < 0.2 mg/dL (0.0-0.3); Blood Urea Nitrogen 40 mg/dl (6-20); Gamma Glutamyl Transpeptidase 21 U/L (8-61); Uric Acid 7.1 mg/dL (2.5-8.0)
[2018-07-16] MEDS: MIDAZOLAM PF 50 MG in 0.9 % SODIUM CHLORIDE 90 ML IV SCH ×3 (07:01→17:21)
[2018-07-16] MEDS: 0.9 % SODIUM CHLORIDE 10 ML SYRINGE IV SCH ×3 (07:02→21:17)
--- NOTE | 2018-07-16 07:31 | Internal Med Progress Note ---
Medical - PN: Subj Patient information: Note initiated : 07/16/18 at 7:21 am Service Date, if different from initiated Date: [] Patient: Breezy Barnard 58 y/o M admitted on 07/14/18 for Cough, body aches. Chief Complaint: [] Interval history: Mr. Barnard is a 58 year old M who presents with cough shortness of breath malaise for 3-4 days. He reports he is had a cough for about 3 days which she says is dry. He has been around a relative that was sick, however, he denies any fevers or chills. Denies any myalgias does have worsening knee pain. That is a chronic injury and is chronic chronic back pain. He has shortness of breath both states that it actually is little bit better than it was a couple days ago. He says he had a hard time sleeping the past 3 nights that the main reason he came in. He denies having any shortness of breath when he lays flat on his back, no orthopnea. Denies any edema. Denies any history of heart or lung disease. States he is urinating just fine and that is of pale yellow. Last time he saw a primary care provider was he says 20 years ago. When he arrived in the ER his oxygen saturations were in the high 70s on room air. He did receive several breathing treatments which she says did help him but he still was quite tachypneic and using accessory muscles and was subsequently put on BiPAP. Chest x-ray with some cephalization and [place] B line patient was given 40 of Lasix and put out 1000 in the Sr bag. I saw him in the ICU he had 400 additional cc in the bag. Also found to be hypertensive in the ED. He does not have any known medical conditions and does not take any home medications. 07/15 Patient can continued to become more more tachypneic last night until the need for intubation was seen. Currently sedated on the vent. No acute distress. Titrating down FiO2. Respiratory rate 20s-30. 07/16 Patient had increased urine output last night. Vent parameters improving. Sedated but awakens partially to voice and moves extremities. Good peak and plateau pressures and on compliance 48. Sedation vacation and weaning trial. ROS: Unable to obtain given sedated on the vent - Constitutional Vitals: Vital Signs Temp Pulse Resp BP Pulse Ox 99.2 F H 75 20 131/91 97 07/16/18 07:00 07/16/18 07:00 07/16/18 07:00 07/16/18 06:31 07/16/18 07:00 Period Temp Pulse Resp BP Sys/Madrigal Pulse Ox Last 24 Hr 98.1 F-103.6 F 75-128 18-33 100-191/79-124 80-100 Intake and Output 07/15/18 07/16/18 07/16/18 21:59 05:59 13:59 Intake Total 1063 / 1063 1068 / 1068 70 / 70 Output Total 285 / 285 360 / 360 Balance 778 / 778 708 / 708 70 / 70 Weight 58.014 kg Intake & Output: Intake & Output 07/15/18 07/16/18 07/16/18 21:59 05:59 13:59 Intake Total 1063 / 1063 1068 / 1068 70 / 70 Output Total 285 / 285 360 / 360 Balance 778 / 778 708 / 708 70 / 70 Weight 58.014 kg Intake: IV 1063 / 1063 1068 / 1068 70 / 70 Sodium Chloride 0.9% 1,000 ml @ 987 / 987 100 mls/hr IV .Q10H [facility] Rx#: [id number] Sodium Chloride 0.9% 250 ml @ 250 / 250 Wide Open IV [facility] Rx#: [id number] Zithromax 500 mg In Dextrose 5% 250 / 250 in Water 250 ml @ 250 mls/hr IV Q24H [facility] Rx#:[id number] Versed 50 mg In Sodium Chloride 67 / 67 20 / 20 0.9% 90 ml @ 0.02 MG/KG/HR 2. 38 mls/hr IV Q8H [facility] Rx#: [id number] Zosyn 3.375 gm In Dextrose 5% 50 / 50 50 / 50 50 / 50 in Water 50 ml @ 100 mls/hr IV Q6H [facility] Rx#:[id number] Output: Gastric Drainage 0 / 0 Right Nare NG/OG 0 / 0 Urine Catheter Amount 285 / 285 360 / 360 Other: Urine Appearance Cloudy Uretheral (Sr) Clear Urine Color Bright Yellow Uretheral (Sr) Pale Light Tracy Exam: General: sedated on vent, but awakens to voice, no acute distress Eyes/N/T: PEERL, Head/Neck: neck supple, CV: RRR, no murmurs Pulm: diminished bilaterally but improving, no wheezing Abd: soft, +BS x4 Ext: no clubbing/cyanosis/edema Neuro: sedated on vent but partially awakens, moves all extremities to command Skin: warm/dry Medical - PN: Obj Da - Labs CBC & Chem 7: 07/16/18 03:45 07/16/18 03:45 Labs: Abnormal Lab Results 07/16/18 07/16/18 07/15/18 03:45 03:45 03:40 RBC 4.01 L Hgb 13.2 L Hct 38.9 L Gran % 88.8 H Lymph % (Auto) 7.5 L Gran # Lymph # (Auto) 0.6 L VBG Lactic Acid POC Potassium Potassium POC Chloride Chloride 94 L POC Total CO2 Anion Gap BUN 40 H 22 H Creatinine 3.1 H 1.5 H POC Creatinine Glucose 121 H POC Glucose Calcium 8.1 L POC WB Ioniz Calcium Phosphorus 4.8 H AST 52 H 48 H Lactate Dehydrogenase 378 H 375 H NT-Pro-B Natriuret Pep Total Protein 5.2 L Albumin 2.7 L Urine Protein Urine Ketones Urine Occult Blood Hyaline Casts 07/15/18 07/14/18 07/14/18 03:40 19:20 17:25 RBC 4.47 L Hgb Hct Gran % 89.7 H Lymph % (Auto) 5.4 L Gran # 8.7 H Lymph # (Auto) 0.5 L VBG Lactic Acid POC Potassium 3.0 L Potassium 3.2 L POC Chloride 89 L Chloride 89 L POC Total CO2 33 H Anion Gap 17.0 H BUN Creatinine 1.4 H POC Creatinine 1.3 H Glucose 112 H POC Glucose 110 H Calcium POC WB Ioniz Calcium 1.06 L Phosphorus AST 39 H Lactate Dehydrogenase NT-Pro-B Natriuret Pep Total Protein Albumin Urine Protein 100 A Urine Ketones 5/tr A Urine Occult Blood 0.03 A Hyaline Casts 13 H 07/14/18 07/14/18 07/14/18 17:25 17:22 17:21 RBC Hgb Hct Gran % 85.0 H Lymph % (Auto) 6.1 L Gran # 9.3 H Lymph # (Auto) 0.7 L VBG Lactic Acid 2.4 H POC Potassium Potassium POC Chloride Chloride POC Total CO2 Anion Gap BUN Creatinine POC Creatinine Glucose POC Glucose Calcium POC WB Ioniz Calcium Phosphorus AST Lactate Dehydrogenase NT-Pro-B Natriuret Pep 99950.0 H Total Protein Albumin Urine Protein Urine Ketones Urine Occult Blood Hyaline Casts Meds: Medications Acetaminophen (Tylenol) 650 mg PO Q6HP PRN PRN Reason: PAIN/FEVER > 101 Last Admin: 07/16/18 01:03 Dose: 650 mg Albuterol/Ipratropium (Duoneb) 3 ml NEB Q4HP PRN PRN Reason: Bronchospasm Last Admin: 07/15/18 00:03 Dose: 3 ml Albuterol/Ipratropium (Duoneb) 3 ml NEB Q6HRT [facility] Last Admin: 07/16/18 07:17 Dose: 3 ml Chlorhexidine Gluconate (Peridex) 15 ml SWABMOUTH BID [facility] Last Admin: 07/15/18 20:58 Dose: 15 ml Enoxaparin Sodium (Lovenox) 40 mg SQ DAILY [facility] Last Admin: 07/15/18 10:06 Dose: 40 mg Famotidine (Pepcid) 20 mg IV HS [facility] Last Admin: 07/15/18 20:59 Dose: 20 mg Fentanyl (Sublimaze) 25 mcg IV Q1HP PRN PRN Reason: PAIN LEVEL > 6 Last Admin: 07/16/18 03:35 Dose: 25 mcg Piperacillin Sod/Tazobactam (Sod 3.375 gm/ Dextrose) 50 mls @ 100 mls/hr IV Q6H [facility] Last Infusion: 07/16/18 06:00 Dose: Infused Midazolam HCl 50 mg/ Sodium (Chloride) 100 mls @ 2.38 mls/hr IV Q8H [facility]; Protocol Last Titration: 07/16/18 07:01 Dose: 0.05 mg/kg/hr, 6 mls/hr Sodium Chloride (Sodium Chloride 0.9%) 1,000 mls @ 100 mls/hr IV .Q10H [facility] Last Admin: 07/16/18 05:30 Dose: 100 mls/hr Azithromycin 500 mg/ Dextrose 250 mls @ 250 mls/hr IV Q24H [facility] Stop: 07/16/18 19:14 Last Infusion: 07/15/18 20:55 Dose: Infused Sodium Chloride (Sodium Chloride 0.9%) 250 mls @ 20 mls/hr IV .[id number] [facility] Last Admin: 07/15/18 19:00 Dose: 14 mls/hr Labetalol HCl (Trandate) 0 mg IV Q2HP PRN PRN Reason: htn Last Admin: 07/15/18 23:43 Dose: 10 mg Ondansetron HCl (Zofran) 4 mg IV Q4HP PRN PRN Reason: Nausea And Vomiting Oseltamivir Phosphate (Tamiflu) 75 mg PO BID [facility] Last Admin: 07/15/18 20:59 Dose: 75 mg Pneumococcal Polyvalent Vaccine (Pneumovax 23) 0.5 ml IM .ONCE ONE Stop: 07/18/18 10:01 Sodium Chloride (Saline Flush) 10 ml IV Q8 [facility] Last Admin: 07/16/18 07:02 Dose: Not Given Medical - PN: A/P - Time Spent With Patient Total time spent is greater than 50% in coordination of care (as documented) at patient's floor/unit and/or counseling patient: - Narrative A/P Narrative: A: *PNA (INFLUENZA A): concern for ARDS *Acute hypoxic respiratory failure: 2/2 above -Intubated early on 07/15 -low PCT, nonproductive cough, no fevers - *Initially there was a question of acute chf: difficult to delineate give underlying condition and suspected ARDS, mixed clinical picture. But appears more as inflammatory response at this point. -nonproductive cough, but initial cxr with [place] B per radiology, also appeared to have some cephalization ( However looking at old cxr this is noticeable as well although not as prominent) , no peripheral edema. Significantly elevated BNP in setting of some renal dysfxn. Given IVF in ED then lasix in ED with >1400cc UOP, but respiratory status did not seem to improve. Fever overnight. PaO2/Fio2 <300 and subsequently less than 200. Although Fio2 requirement is not significant. -echo with normal EF, unable to assess diastolic fxn and pulmonary artery pressure *Lactic acidosis: 2/2 hypoxia, resolved *RADHA vs CKD (unknown baseline, but suspect mid 1's): likely ATN from hypoxia & volume loss -renal u/s with chronic d/c b/l, no obstruction , stenosis of left renal aa -UOP improving *Hypokalemia: *Tobacco abuse *HTN: has not been on any meds *Has not seen a PCP in 20yrs P: -vent support, weaning trials and daily sedation vacations -Tamiflu, emiric abx -IVF's, i/o's & weights -monitor renal fxn, creatinine may yet to peak, if not showing improvement soon will consult nephrology -urine lytes -prn bp meds -electrolyte replete prn -start norvasc, prn labetalol -smoking cessation counseling -f/u with nephrology for renal aa stenosis and CKD -ppx: [facility] Medical - PN: Qual - VTE Deep Vein Thrombosis/Pulmonary Embolism Present on Admission: No
[2018-07-16] MEDS: amLODIPine 5 MG TABLET PO SCH (09:04)
[2018-07-16] MEDS: ENOXAPARIN 40 MG/0.4 ML SYRINGE SQ SCH (09:04)
[2018-07-16] MEDS: CHLORHEXIDINE GLUCONATE 1 ML ORAL.SOL SWABMOUTH SCH ×2 (09:05→21:16)
[2018-07-16] MEDS: OSELTAMIVIR PHOSPHATE 75 MG CAPSULE PO SCH ×2 (09:05→21:17)
--- NOTE | 2018-07-16 09:08 | XRay Report ---
HISTORY: Emphysema and intubated FINDINGS: The lungs are hyperinflated and there is interstitial lung disease. No consolidating infiltrate has developed. There is no pleural effusion or pneumothorax. The heart size is normal. Endotracheal tube is well-positioned and there is a nasogastric tube in the body of the stomach. The nasogastric tube is new since 07/15/18. There has been no other change. IMPRESSION: Moderate emphysema with mild interstitial fibrosis or inflammation Interpreted and Authenticated by: Cristobal Mccullough 07/16/18
[2018-07-16 09:10] LABS: Appearance,Urine CLOUDY; Bacteria,Urine 0 /hpf (0); Bilirubin,Urine NEG (NEG); Color,Urine YELLOW; Glucose,Urine (UA) NEGATIVE (NEG); Leukocyte Esterase,Urine NEG /uL (NEG); Mucus,Urine FEW /hpf (0); Protein,Urine 30 mg/dL (NEG); Specific Gravity,Urine 1.016 (1.000-1.035); Urine Blood 0.2 mg/dL (<0.03); Urine RBC 25 /hpf (0-1); Urine Squamous Epithelial Cell < 1 /hpf (0-4); Urine WBC 3 /hpf (0-4); Urobilinogen,Urine NEG (NEG)
[2018-07-16] MEDS: AZITHROMYCIN 500 MG in DEXTROSE 5% IN WATER 250 ML IV SCH (10:34)
[2018-07-16] MEDS: 0.9 % SODIUM CHLORIDE 250 ML IV SCH ×2 (14:05→20:15)
[2018-07-16] MEDS ORDERED: 0.9 % SODIUM CHLORIDE 1,000 ML IV SCH (16:57)
[2018-07-16] MEDS ORDERED: POTASSIUM CHLORIDE 20 MEQ PACKET PO ONE (16:58)
[2018-07-16] MEDS: FAMOTIDINE/PF 20 MG/2 ML VIAL IV SCH (21:16)
[2018-07-17] MEDS: PIPERACILLIN SODIUM/TAZOBACTAM 3.375 GM in DEXTROSE 5% IN WATER 50 ML IV SCH ×3 (00:01→11:30)
[2018-07-17] MEDS: LABETALOL 5 MG/ML ML IV PRN ×4 (00:26→20:50)
[2018-07-17] MEDS: IPRATROPIUM/ALBUTEROL 3 ML AMPUL.NEB NEB SCH ×4 (00:26→19:49)
[2018-07-17] MEDS: MIDAZOLAM PF 50 MG in 0.9 % SODIUM CHLORIDE 90 ML IV SCH (00:40)
[2018-07-17] MEDS: fentaNYL 100 MCG/2 ML VIAL IV PRN (03:47)
[2018-07-17] MEDS: 0.9 % SODIUM CHLORIDE 10 ML SYRINGE IV SCH ×3 (05:17→22:28)
[2018-07-17 05:37] LABS: Blood Urea Nitrogen 43 mg/dl (6-20)
--- NOTE | 2018-07-17 07:27 | Internal Med Progress Note ---
Medical - PN: Subj Patient information: Note initiated : 07/17/18 at 7:21 am Service Date, if different from initiated Date: [] Patient: Breezy Barnard 58 y/o M admitted on 07/14/18 for Cough, body aches. Chief Complaint: [] Interval history: Mr. Barnard is a 58 year old M who presents with cough shortness of breath malaise for 3-4 days. He reports he is had a cough for about 3 days which she says is dry. He has been around a relative that was sick, however, he denies any fevers or chills. Denies any myalgias does have worsening knee pain. That is a chronic injury and is chronic chronic back pain. He has shortness of breath both states that it actually is little bit better than it was a couple days ago. He says he had a hard time sleeping the past 3 nights that the main reason he came in. He denies having any shortness of breath when he lays flat on his back, no orthopnea. Denies any edema. Denies any history of heart or lung disease. States he is urinating just fine and that is of pale yellow. Last time he saw a primary care provider was he says 20 years ago. When he arrived in the ER his oxygen saturations were in the high 70s on room air. He did receive several breathing treatments which she says did help him but he still was quite tachypneic and using accessory muscles and was subsequently put on BiPAP. Chest x-ray with some cephalization and [place] B line patient was given 40 of Lasix and put out 1000 in the Sr bag. I saw him in the ICU he had 400 additional cc in the bag. Also found to be hypertensive in the ED. He does not have any known medical conditions and does not take any home medications. 07/15 Patient can continued to become more more tachypneic last night until the need for intubation was seen. Currently sedated on the vent. No acute distress. Titrating down FiO2. Respiratory rate 20s-30. 07/16 Patient had increased urine output last night. Vent parameters improving. Sedated but awakens partially to voice and moves extremities. Good peak and plateau pressures and on compliance 48. Sedation vacation and weaning trial. 07/17 No issues overnight. Patient stable on the vent without sedation and comfortable. Awake on vent follows commands. Good vent parameters and performing weaning trial this morning. With likely extubation. ROS: Unable to obtain given sedated on the vent - Constitutional Vitals: Vital Signs Temp Pulse Resp BP Pulse Ox 99.8 F H 72 22 157/110 96 07/17/18 06:01 07/17/18 07:00 07/17/18 07:00 07/17/18 06:01 07/17/18 06:35 Period Temp Pulse Resp BP Sys/Madrigal Pulse Ox Last 24 Hr 99.3 F-100.4 F 72-91 19-33 127-178/88-124 91-99 Intake and Output 07/16/18 07/17/18 07/17/18 21:59 05:59 13:59 Intake Total 1057 / 1057 597 / 597 50 / 50 Output Total 920 / 920 885 / 885 80 / 80 Balance 137 / 137 -288 / -288 -30 / -30 Weight 55.61 kg Intake & Output: Intake & Output 07/16/18 07/17/18 07/17/18 21:59 05:59 13:59 Intake Total 1057 / 1057 597 / 597 50 / 50 Output Total 920 / 920 885 / 885 80 / 80 Balance 137 / 137 -288 / -288 -30 / -30 Weight 55.61 kg Intake: IV 417 / 417 50 / 50 50 / 50 Sodium Chloride 0.9% 1,000 ml @ 367 / 367 100 mls/hr IV .Q10H [facility] Rx#: [id number] Versed 50 mg In Sodium Chloride 0 / 0 0.9% 90 ml @ 0.02 MG/KG/HR 2. 38 mls/hr IV Q8H [facility] Rx#: [id number] Zosyn 3.375 gm In Dextrose 5% 50 / 50 50 / 50 50 / 50 in Water 50 ml @ 100 mls/hr IV Q6H [facility] Rx#:[id number] Tube Feeding 460 / 460 487 / 487 GI Tube Flush 180 / 180 60 / 60 Output: Urine Catheter Amount 920 / 920 885 / 885 80 / 80 Other: Urine Appearance Clear Clear Uretheral (Sr) Cloudy Cloudy Urine Color Bright Yellow Bright Yellow Uretheral (Sr) Bright Yellow Bright Yellow Stool Size Small Stool Color Brown Stool Consistency Soft # of times incontinent of 1 Bowels Exam: General: awake on vent, no acute distress Eyes/N/T: EOMI Head/Neck: neck supple, CV: RRR, no murmurs Pulm: mildly diminished bilaterally, no wheezing Abd: soft, +BS x4 Ext: no clubbing/cyanosis/edema Neuro: alert and awake on vent, moves all extremities to command, follows all commands Skin: warm/dry Medical - PN: Obj Da - Labs CBC & Chem 7: 07/16/18 03:45 07/17/18 03:45 Labs: Abnormal Lab Results 07/17/18 07/16/18 07/16/18 03:45 08:00 03:45 RBC Hgb Hct Gran % Lymph % (Auto) Gran # Lymph # (Auto) VBG Lactic Acid POC Potassium Potassium POC Chloride Chloride POC Total CO2 Anion Gap BUN 43 H 40 H Creatinine 3.1 H 3.1 H POC Creatinine Glucose 118 H POC Glucose Calcium 8.0 L 8.1 L POC WB Ioniz Calcium Phosphorus 4.8 H AST 52 H Lactate Dehydrogenase 378 H NT-Pro-B Natriuret Pep Total Protein 5.2 L Albumin 2.7 L Urine Protein 30 A Urine Ketones Urine Occult Blood 0.2 A Urine RBC 25 H Hyaline Casts 07/16/18 07/15/18 07/15/18 03:45 03:40 03:40 RBC 4.01 L 4.47 L Hgb 13.2 L Hct 38.9 L Gran % 88.8 H 89.7 H Lymph % (Auto) 7.5 L 5.4 L Gran # 8.7 H Lymph # (Auto) 0.6 L 0.5 L VBG Lactic Acid POC Potassium Potassium POC Chloride Chloride 94 L POC Total CO2 Anion Gap BUN 22 H Creatinine 1.5 H POC Creatinine Glucose 121 H POC Glucose Calcium POC WB Ioniz Calcium Phosphorus AST 48 H Lactate Dehydrogenase 375 H NT-Pro-B Natriuret Pep Total Protein Albumin Urine Protein Urine Ketones Urine Occult Blood Urine RBC Hyaline Casts 07/14/18 07/14/18 07/14/18 19:20 17:25 17:25 RBC Hgb Hct Gran % 85.0 H Lymph % (Auto) 6.1 L Gran # 9.3 H Lymph # (Auto) 0.7 L VBG Lactic Acid POC Potassium 3.0 L Potassium 3.2 L POC Chloride 89 L Chloride 89 L POC Total CO2 33 H Anion Gap 17.0 H BUN Creatinine 1.4 H POC Creatinine 1.3 H Glucose 112 H POC Glucose 110 H Calcium POC WB Ioniz Calcium 1.06 L Phosphorus AST 39 H Lactate Dehydrogenase NT-Pro-B Natriuret Pep Total Protein Albumin Urine Protein 100 A Urine Ketones 5/tr A Urine Occult Blood 0.03 A Urine RBC Hyaline Casts 13 H 07/14/18 07/14/18 17:22 17:21 RBC Hgb Hct Gran % Lymph % (Auto) Gran # Lymph # (Auto) VBG Lactic Acid 2.4 H POC Potassium Potassium POC Chloride Chloride POC Total CO2 Anion Gap BUN Creatinine POC Creatinine Glucose POC Glucose Calcium POC WB Ioniz Calcium Phosphorus AST Lactate Dehydrogenase NT-Pro-B Natriuret Pep 09699.0 H Total Protein Albumin Urine Protein Urine Ketones Urine Occult Blood Urine RBC Hyaline Casts Meds: Medications Acetaminophen (Tylenol) 650 mg PO Q6HP PRN PRN Reason: PAIN/FEVER > 101 Last Admin: 07/16/18 12:40 Dose: 650 mg Albuterol/Ipratropium (Duoneb) 3 ml NEB Q4HP PRN PRN Reason: Bronchospasm Last Admin: 07/15/18 00:03 Dose: 3 ml Albuterol/Ipratropium (Duoneb) 3 ml NEB Q6HRT [facility] Last Admin: 07/17/18 06:35 Dose: 3 ml Amlodipine Besylate (Norvasc) 5 mg PO DAILY [facility] Last Admin: 07/16/18 09:04 Dose: 5 mg Chlorhexidine Gluconate (Peridex) 15 ml SWABMOUTH BID [facility] Last Admin: 07/16/18 21:16 Dose: 15 ml Enoxaparin Sodium (Lovenox) 40 mg SQ DAILY [facility] Last Admin: 07/16/18 09:04 Dose: 40 mg Famotidine (Pepcid) 20 mg IV HS [facility] Last Admin: 07/16/18 21:16 Dose: 20 mg Fentanyl (Sublimaze) 25 mcg IV Q1HP PRN PRN Reason: PAIN LEVEL > 6 Last Admin: 07/17/18 03:47 Dose: 25 mcg Piperacillin Sod/Tazobactam (Sod 3.375 gm/ Dextrose) 50 mls @ 100 mls/hr IV Q6H [facility] Last Infusion: 07/17/18 06:06 Dose: Infused Midazolam HCl 50 mg/ Sodium (Chloride) 100 mls @ 2.38 mls/hr IV Q8H [facility]; Protocol Last Admin: 07/17/18 00:40 Dose: Not Given Sodium Chloride (Sodium Chloride 0.9%) 250 mls @ 20 mls/hr IV .[id number] [facility] Last Admin: 07/16/18 20:15 Dose: Not Given Sodium Chloride (Sodium Chloride 0.9%) 1,000 mls @ 40 mls/hr IV .Q24H [facility] Last Admin: 07/16/18 20:14 Dose: Not Given Labetalol HCl (Trandate) 0 mg IV Q2HP PRN PRN Reason: htn Last Admin: 07/17/18 00:26 Dose: 10 mg Ondansetron HCl (Zofran) 4 mg IV Q4HP PRN PRN Reason: Nausea And Vomiting Oseltamivir Phosphate (Tamiflu) 75 mg PO BID [facility] Last Admin: 07/16/18 21:17 Dose: 75 mg Pneumococcal Polyvalent Vaccine (Pneumovax 23) 0.5 ml IM .ONCE ONE Stop: 07/18/18 10:01 Sodium Chloride (Saline Flush) 10 ml IV Q8 [facility] Last Admin: 07/17/18 05:17 Dose: 10 ml Medical - PN: A/P - Time Spent With Patient Total time spent is greater than 50% in coordination of care (as documented) at patient's floor/unit and/or counseling patient: - Narrative A/P Narrative: A: *PNA (INFLUENZA A): *Acute hypoxic respiratory failure: 2/2 above -Intubated early on 07/15 -low PCT, nonproductive cough, does have fevers - *Initially there was a question of acute chf: difficult to delineate give underlying condition and suspected ARDS, mixed clinical picture. But appears more as inflammatory response at this point. -nonproductive cough, but initial cxr with [place] per radiology, also appeared to have some cephalization ( However looking at old cxr this is noticeable as well although not as prominent) , no peripheral edema. Significantly elevated BNP in setting of some renal dysfxn. Given IVF in ED then lasix in ED with >1400cc UOP, but respiratory status did not seem to improve. Fever overnight. PaO2/Fio2 <300 and subsequently less than 200. Although Fio2 requirement is not significant. -echo with normal EF, unable to assess diastolic fxn and pulmonary artery pressure *Lactic acidosis: 2/2 hypoxia, resolved *ARDHA on likely CKD (unknown baseline, but suspect mid 1's): ATN from hypoxia & volume loss -renal u/s with chronic d/c b/l, no obstruction , stenosis of left renal aa -UOP improved *Hypokalemia: resolved *Tobacco abuse *HTN: has not been on any meds *Has not seen a PCP in 20yrs P: -weaning trial, likely extubate -Tamiflu, emiric abx -IVF's, i/o's & weights -monitor renal fxn, creatinine may yet to peak, if not showing improvement soon will consult nephrology -urine lytes -prn bp meds -electrolyte replete prn -started norvasc, prn labetalol -smoking cessation counseling -f/u with nephrology for renal aa stenosis and CKD -nutrition: tube feedings -ppx: [facility] - PN: Qual - VTE Deep Vein Thrombosis/Pulmonary Embolism Present on Admission: No
[2018-07-17] MEDS: amLODIPine 5 MG TABLET PO SCH (08:07)
[2018-07-17] MEDS: ENOXAPARIN 40 MG/0.4 ML SYRINGE SQ SCH (08:07)
[2018-07-17] MEDS: CHLORHEXIDINE GLUCONATE 1 ML ORAL.SOL SWABMOUTH SCH (08:08)
[2018-07-17] MEDS: 0.9 % SODIUM CHLORIDE 1,000 ML IV SCH ×2 (08:12→18:56)
[2018-07-17] MEDS: OSELTAMIVIR PHOSPHATE 75 MG CAPSULE PO SCH (08:17)
[2018-07-17] MEDS ORDERED: MIDAZOLAM PF 50 MG in 0.9 % SODIUM CHLORIDE 90 ML IV PRN (08:30)
--- NOTE | 2018-07-17 08:50 | XRay Report ---
HISTORY: Emphysema and intubated FINDINGS: The lungs remain hyperinflated. There is emphysema and pulmonary fibrosis. No lobar consolidation is present and there is no evidence of a mass, pleural effusion or adenopathy. The endotracheal tube and nasogastric tube are well-positioned. No pneumothorax is present. There has been no significant change since yesterday. IMPRESSION: COPD with interstitial inflammation and fibrosis, with no change from the prior exam Interpreted and Authenticated by: Cristobal Mccullough 07/17/18
[2018-07-17] MEDS ORDERED: amLODIPine 5 MG TABLET PO ONE (13:19)
[2018-07-17] MEDS: PIPERACILLIN SODIUM/TAZOBACTAM 2.25 GM in DEXTROSE 5% IN WATER 50 ML IV SCH (17:33)
--- NOTE | 2018-07-17 19:19 | Consultation ---
DATE OF CONSULTATION: 07/17/2018 REQUESTING: Brian Guzman DO CONSULTING: Leo Huston MD HISTORY OF PRESENT ILLNESS: The patient is a 58-year-old gentleman admitted on 07/14/2018 with an exacerbation of COPD. The patient apparently has not sought health care in an extended period of time and has been living in reduced circumstances by his choosing by report. He has not seen a physician in 20 years. He unfortunately has an extensive tobacco use history and clearly by chest radiograph significant panlobular emphysema. He was seen and evaluated in the emergency room and because of his significant respiratory distress, admitted to the intensive care unit and intubated and supported with an endotracheal tube and ventilator through the early course of his hospitalization. The patient had improved and was considered a candidate for extubation this morning and that was performed. The patient subsequently had additional difficulties with his respirations and was supported with ongoing respiratory care with BiPAP therapy. The patient is apparently demonstrated the presence of a seasonal influenza. CT scan did not demonstrate significant radiographic infiltrates. He was supported with antibiotic therapy and despite an extended period of time from initial symptomatology Tamiflu therapy. I agree with both of those interventions. He is currently on bronchodilator therapy with ipratropium and albuterol. Review of his radiographic data would suggest that there has been less air trapping through his hospital stay and course suggesting improvement in air trapping and airflow obstruction. The patient is a poor historian at this point in time and is quite hoarse and difficult to understand due to his endotracheal tube. History is basically as recorded in the medical record. REVIEW OF SYSTEMS: Essentially not obtainable at this time. PHYSICAL EXAMINATION: GENERAL: A pleasant, slightly sleepy 58-year-old gentleman in no acute distress. HEENT: Head is atraumatic and normocephalic. NECK: Supple. LUNGS: Markedly decreased breath sounds in all lung lamb with occasional wheeze. HEART: Regular tachycardic at this time. S1, S2. PMI subxiphoid. No dependent edema. ABDOMEN: Soft. The patient has just had his first oral intake on a thickened liquid diet. Bowel sounds are increased. There is no apparent tenderness, mass, or organomegaly. Bones, joints, and extremities without acute changes. NEUROLOGIC: Grossly nonfocal. LABORATORY DATA: Collected during the course of this hospitalization has been appropriate and extensive and includes CBC without marked elevation of white blood cell count and mild left shift consistent with influenza. Lactic acid was originally elevated but is improved with therapy. Creatinine is increased as has BUN consistent with intravascular volume depletion. CT scan of the chest does not demonstrate marked infiltrates; documents his severe emphysema. IMPRESSION: A 58-year-old male with severe panlobular emphysema with influenza induced exacerbation of his chronic obstructive pulmonary disease. On a course toward improvement at this point in time. Proper fluid balance and management in light of renal insufficiency is recommended. His medical regimen seems appropriate. As discussed, I would recommend the addition of 20 mg of Solu-Medrol q. 6 hours for 2 days and then cut that in half daily until discontinued in approximately 3 days after that for any airway edema that might be contributing to his airflow obstruction. Observation for superimposing / immunocompromised due to influenza A and Solu-Medrol would be appropriate, of course. At this point, I think the patient is on a course of recovery. I thank you for the opportunity to review his situation and offer my suggestions. [email or web address] Job ID: [id number] Doc ID: [id number] Leo Huston MD [email or web address]
[2018-07-17] MEDS: FAMOTIDINE/PF 20 MG/2 ML VIAL IV SCH (20:48)
[2018-07-17] MEDS: methylPREDNISolone SOD SUCC 40 MG/ML VIAL IV SCH (20:49)
[2018-07-18] MEDS: PIPERACILLIN SODIUM/TAZOBACTAM 2.25 GM in DEXTROSE 5% IN WATER 50 ML IV SCH ×4 (00:29→17:28)
[2018-07-18] MEDS: methylPREDNISolone SOD SUCC 40 MG/ML VIAL IV SCH ×4 (00:29→17:27)
[2018-07-18] MEDS: IPRATROPIUM/ALBUTEROL 3 ML AMPUL.NEB NEB SCH ×4 (00:29→19:08)
[2018-07-18] MEDS: LORazepam 2 MG/ML VIAL IV PRN ×2 (01:42→13:45)
[2018-07-18] MEDS: 0.9 % SODIUM CHLORIDE 10 ML SYRINGE IV SCH ×3 (05:22→21:03)
[2018-07-18 05:25] LABS: Basophils # (Auto) 0 K/mcL (0.0-0.3); Basophils % (Auto) 0 % (0.0-2.0); Eosinophils # (Auto) 0 K/mcL (0.0-0.7); Eosinophils % (Auto) 0 % (0.0-7.0); Granulocytes % (Auto) 89.1 % (38.0-78.0); Lymphocytes # (Auto) 0.3 K/mcL (1.5-4.8); Lymphocytes % (Auto) 6.7 % (15.5-49.0); Mean Cell Volume 96.6 fL (80.0-100.0); Mean Corpuscular HGB Conc 33.9 g/dL (31.0-36.0); Monocytes # (Auto) 0.2 K/mcL (0.1-0.9); Monocytes % (Auto) 4.2 % (1.0-12.0); Platelet Count 158 K/mcL (140-440); Red Cell Distribution Width 13.4 % (11.5-14.5)
[2018-07-18 05:43] LABS: ALT/SGPT 25 U/l (0-40); Albumin 2.8 gm/dL (3.2-5.2); Alkaline Phosphatase 44 U/L (39-117); Bilirubin,Direct < 0.2 mg/dL (0.0-0.3); Blood Urea Nitrogen 34 mg/dl (6-20); Gamma Glutamyl Transpeptidase 31 U/L (8-61); Uric Acid 5.3 mg/dL (2.5-8.0)
[2018-07-18] MEDS: cloNIDine HCL 0.1 MG TABLET PO PRN ×2 (06:02→15:01)
[2018-07-18] MEDS: LABETALOL 5 MG/ML ML IV PRN ×4 (07:04→21:08)
--- NOTE | 2018-07-18 07:24 | Internal Med Progress Note ---
Medical - PN: Subj Patient information: Note initiated : 07/18/18 at 7:20 am Service Date, if different from initiated Date: [] Patient: Breezy Barnard 58 y/o M admitted on 07/14/18 for Cough, body aches. Chief Complaint: [] Interval history: Mr. Barnard is a 58 year old M who presents with cough shortness of breath malaise for 3-4 days. He reports he is had a cough for about 3 days which she says is dry. He has been around a relative that was sick, however, he denies any fevers or chills. Denies any myalgias does have worsening knee pain. That is a chronic injury and is chronic chronic back pain. He has shortness of breath both states that it actually is little bit better than it was a couple days ago. He says he had a hard time sleeping the past 3 nights that the main reason he came in. He denies having any shortness of breath when he lays flat on his back, no orthopnea. Denies any edema. Denies any history of heart or lung disease. States he is urinating just fine and that is of pale yellow. Last time he saw a primary care provider was he says 20 years ago. When he arrived in the ER his oxygen saturations were in the high 70s on room air. He did receive several breathing treatments which she says did help him but he still was quite tachypneic and using accessory muscles and was subsequently put on BiPAP. Chest x-ray with some cephalization and [place] B line patient was given 40 of Lasix and put out 1000 in the Sr bag. I saw him in the ICU he had 400 additional cc in the bag. Also found to be hypertensive in the ED. He does not have any known medical conditions and does not take any home medications. 07/15 Patient can continued to become more more tachypneic last night until the need for intubation was seen. Currently sedated on the vent. No acute distress. Titrating down FiO2. Respiratory rate 20s-30. 07/16 Patient had increased urine output last night. Vent parameters improving. Sedated but awakens partially to voice and moves extremities. Good peak and plateau pressures and on compliance 48. Sedation vacation and weaning trial. 07/17 No issues overnight. Patient stable on the vent without sedation and comfortable. Awake on vent follows commands. Good vent parameters and performing weaning trial this morning. With likely extubation. 1/3 Intubated yesterday placed on BiPAP for most of the day and overnight. Patient seen by speech therapy and put on dysphagia diet. Patient was breakfast this morning and on nasal cannula and doing quite well. Denies any shortness of breath has occasional cough no other complaints. Review of Systems: denies headache/fever/chills/nausea/vomiting/chest or abdominal pain/diarrhea. Otherwise see above. - Constitutional Vitals: Vital Signs Temp Pulse Resp BP Pulse Ox 97.6 F 73 26 H 178/110 92 07/18/18 06:35 07/18/18 06:35 07/18/18 06:35 07/18/18 06:35 07/18/18 06:35 Period Temp Pulse Resp BP Sys/Madrigal Pulse Ox Last 24 Hr 97.6 F-101.6 F 70-84 14-48 130-194/78-118 91-100 Intake and Output 07/17/18 07/18/18 07/18/18 21:59 05:59 13:59 Intake Total 827 / 827 730 / 730 Output Total 875 / 875 2685 / 2685 220 / 220 Balance -48 / -48 -1955 / -1955 -220 / -220 Weight 59.012 kg Intake & Output: Intake & Output 07/17/18 07/18/18 07/18/18 21:59 05:59 13:59 Intake Total 827 / 827 730 / 730 Output Total 875 / 875 2685 / 2685 220 / 220 Balance -48 / -48 -1955 / -1955 -220 / -220 Weight 59.012 kg Intake: IV 587 / 587 50 / 50 Sodium Chloride 0.9% 1,000 ml @ 537 / 537 50 mls/hr IV .Q20H [facility] Rx#: [id number] Zosyn 2.25 gm In Dextrose 5% in 50 / 50 50 / 50 Water 50 ml @ 100 mls/hr IV Q6H [facility] Rx#:[id number] Oral 240 / 240 680 / 680 Output: Urine Catheter Amount 875 / 875 2685 / 2685 220 / 220 Other: Meal Dinner Percent of Meal Consumed 75% Feeding Ability Needs Supervision Urine Appearance Clear Clear Uretheral (Sr) Clear Clear Urine Color Pale Straw Uretheral (Sr) Light Tracy Light Tracy Urine Odor Normal Stool Size Moderate Stool Color Brown Stool Consistency Liquid # of times incontinent of 1 Bowels Exam: General: alert and awake, no acute distress Eyes/N/T: EOMI Head/Neck: neck supple, CV: RRR, no murmurs Pulm: mildly diminished bilaterally but better, no wheezing Abd: soft, +BS x4 Ext: no clubbing/cyanosis/edema Neuro: alert and awake, moves all extremities to command, follows all commands, no focal deficits Skin: warm/dry Medical - PN: Obj Da - Labs CBC & Chem 7: 07/18/18 04:06 07/18/18 04:06 Labs: Abnormal Lab Results 07/18/18 07/18/18 07/17/18 04:06 04:06 03:45 RBC 4.00 L Hgb 13.1 L Hct 38.7 L Gran % 89.1 H Lymph % (Auto) 6.7 L Lymph # (Auto) 0.3 L Potassium 3.2 L BUN 34 H 43 H Creatinine 2.3 H 3.1 H Glucose 170 H 118 H Calcium 8.3 L 8.0 L Phosphorus AST 43 H Lactate Dehydrogenase 385 H Total Protein 5.6 L Albumin 2.8 L Urine Protein Urine Occult Blood Urine RBC 07/16/18 07/16/18 07/16/18 08:00 03:45 03:45 RBC 4.01 L Hgb 13.2 L Hct 38.9 L Gran % 88.8 H Lymph % (Auto) 7.5 L Lymph # (Auto) 0.6 L Potassium BUN 40 H Creatinine 3.1 H Glucose Calcium 8.1 L Phosphorus 4.8 H AST 52 H Lactate Dehydrogenase 378 H Total Protein 5.2 L Albumin 2.7 L Urine Protein 30 A Urine Occult Blood 0.2 A Urine RBC 25 H Meds: Medications Acetaminophen (Tylenol) 650 mg PO Q6HP PRN PRN Reason: PAIN/FEVER > 101 Last Admin: 07/16/18 12:40 Dose: 650 mg Albuterol/Ipratropium (Duoneb) 3 ml NEB Q4HP PRN PRN Reason: Bronchospasm Last Admin: 07/15/18 00:03 Dose: 3 ml Albuterol/Ipratropium (Duoneb) 3 ml NEB Q6HRT [facility] Last Admin: 07/18/18 06:44 Dose: 3 ml Amlodipine Besylate (Norvasc) 5 mg PO DAILY [facility] Last Admin: 07/17/18 08:07 Dose: 5 mg Clonidine HCl (Catapres) 0.1 mg PO TIDP PRN PRN Reason: SBP>150 Last Admin: 07/18/18 06:02 Dose: 0.1 mg Famotidine (Pepcid) 20 mg IV HS [facility] Last Admin: 07/17/18 20:48 Dose: 20 mg Heparin Sodium (Porcine) (Heparin) 5,000 unit SQ Q12 [facility] Sodium Chloride (Sodium Chloride 0.9%) 1,000 mls @ 50 mls/hr IV .Q20H [facility] Last Admin: 07/17/18 18:56 Dose: 50 mls/hr Piperacillin Sod/Tazobactam (Sod 2.25 gm/ Dextrose) 50 mls @ 100 mls/hr IV Q6H [facility] Last Admin: 07/18/18 05:33 Dose: 100 mls/hr Labetalol HCl (Trandate) 0 mg IV Q2HP PRN PRN Reason: htn Last Admin: 07/18/18 07:04 Dose: 20 mg Lorazepam (Ativan) 1 mg IV Q8HP PRN PRN Reason: Anxiety Last Admin: 07/18/18 01:42 Dose: 1 mg Methylprednisolone Sodium Succinate (Solu-Medrol) 20 mg IV Q6 [facility] Last Admin: 07/18/18 05:33 Dose: 20 mg Ondansetron HCl (Zofran) 4 mg IV Q4HP PRN PRN Reason: Nausea And Vomiting Oseltamivir Phosphate (Tamiflu) 75 mg PO DAILY [facility] Pneumococcal Polyvalent Vaccine (Pneumovax 23) 0.5 ml IM .ONCE ONE Stop: 07/18/18 10:01 Sodium Chloride (Saline Flush) 10 ml IV Q8 [facility] Last Admin: 07/18/18 05:22 Dose: Not Given Medical - PN: A/P - Time Spent With Patient Total time spent is greater than 50% in coordination of care (as documented) at patient's floor/unit and/or counseling patient: - Narrative A/P Narrative: A: *Primary INFLUENZA A Pneumonia): *Acute hypoxic respiratory failure: 2/2 above -Intubated early on 07/15 and extubated 1/2 to bipap, now tolerating NC -low PCT, nonproductive cough, he does have fevers -echo with normal EF, unable to assess diastolic fxn and pulmonary artery pressure *Lactic acidosis: 2/2 hypoxia, resolved *RADHA on likely CKD (unknown baseline, but suspect mid 1's): ATN from hypoxia -renal u/s with chronic d/c b/l, no obstruction , stenosis of left renal aa -UOP improved -2.3<3.1<1.5 *Likely COPD, with exacerbation: based on smoking history and CXR appearance *Hypokalemia: resolved *Tobacco abuse: *HTN: has not been on any meds *Has not seen a PCP in 20yrs *Oropharyngeal Dysphagia: P: -prn Bipap -Tamiflu (although was symptomatic for 3-days prior), emiric abx -Pulmonology consulted, steroids (wean as soon as able) -IVF's, i/o's & weights -monitor renal fxn, creatinine peaking, if worsens again will consult nephrology -prn bp meds, cont norvasc(increase) -electrolyte replete prn -smoking cessation counseling -f/u with nephrology for CKD and renal aa stenosis -Diet per ST -pharm to renally dose meds -ppx: heparin Medical - PN: Qual - VTE Deep Vein Thrombosis/Pulmonary Embolism Present on Admission: No
[2018-07-18] MEDS ORDERED: POTASSIUM CHLORIDE 20 MEQ TABLET PO ONE (07:27)
--- NOTE | 2018-07-18 08:00 | XRay Report ---
HISTORY: COPD, extubated and cough FINDINGS: The endotracheal tube and nasogastric tube have been removed since yesterday. The lungs are hyperinflated and there is moderate pulmonary fibrosis. No consolidating infiltrate or mass are present. Heart size is normal. No pleural effusion is present. The appearance of the lungs has remained stable since 07/17/18. IMPRESSION: Stable COPD with moderate interstitial lung disease Interpreted and Authenticated by: Cristobal Mccullough 07/18/18
[2018-07-18] MEDS: QUEtiapine 25 MG TABLET PO SCH ×2 (08:56→20:40)
[2018-07-18] MEDS: HEPARIN 5,000 UNIT/ML VIAL SQ SCH ×2 (08:57→20:40)
[2018-07-18] MEDS: amLODIPine 5 MG TABLET PO SCH (08:57)
[2018-07-18] MEDS: OSELTAMIVIR PHOSPHATE 75 MG CAPSULE PO SCH (08:58)
[2018-07-18] MEDS: 0.9 % SODIUM CHLORIDE 1,000 ML IV SCH ×2 (09:00→14:20)
[2018-07-18] MEDS ORDERED: DEXTROSE 50% 50 ML VIAL IV PRN (09:16)
[2018-07-18] MEDS ORDERED: PNEUMOCOCCAL 23-VAL P-SAC VAC 0.5 ML SYRINGE IM ONE (10:00)
[2018-07-18] MEDS: INSULIN LISPRO 1 UNIT/0.01 ML UNIT SQ SCH ×3 (12:06→20:39)
[2018-07-18] MEDS: FAMOTIDINE/PF 20 MG/2 ML VIAL IV SCH (20:40)
[2018-07-19] MEDS: LORazepam 2 MG/ML VIAL IV PRN ×3 (00:43→18:41)
[2018-07-19] MEDS: PIPERACILLIN SODIUM/TAZOBACTAM 2.25 GM in DEXTROSE 5% IN WATER 50 ML IV SCH ×3 (00:43→17:01)
[2018-07-19] MEDS: methylPREDNISolone SOD SUCC 40 MG/ML VIAL IV SCH ×3 (00:43→21:10)
[2018-07-19] MEDS: IPRATROPIUM/ALBUTEROL 3 ML AMPUL.NEB NEB SCH ×3 (00:44→19:30)
[2018-07-19] MEDS: LABETALOL 5 MG/ML ML IV PRN ×4 (00:44→23:51)
[2018-07-19] MEDS: cloNIDine HCL 0.1 MG TABLET PO PRN ×3 (01:31→17:01)
[2018-07-19 05:56] LABS: Blood Urea Nitrogen 33 mg/dl (6-20)
[2018-07-19] MEDS: 0.9 % SODIUM CHLORIDE 10 ML SYRINGE IV SCH ×2 (06:00→21:58)
[2018-07-19] MEDS ORDERED: LOPERAMIDE 2 MG CAPSULE PO PRN ×2 (07:01→11:24)
--- NOTE | 2018-07-19 07:05 | Internal Med Progress Note ---
Medical - PN: Subj Patient information: Note initiated : 07/19/18 at 6:58 am Service Date, if different from initiated Date: [] Patient: Breezy Barnard 58 y/o M admitted on 07/14/18 for Cough, body aches. Chief Complaint: [] Interval history: Mr. Barnard is a 58 year old M who presents with cough shortness of breath malaise for 3-4 days. He reports he is had a cough for about 3 days which she says is dry. He has b een around a relative that was sick, however, he denies any fevers or chills. Denies any myalgias does have worsening knee pain. That is a chronic injury and is chronic chronic back pain. He has shortness of breath both states that it actually is little bit better than it was a couple days ago. He says he had a hard time sleeping the past 3 nights that the main reason he came in. He denies having any shortness of breath when he lays flat on his back, no orthopnea. Denies any edema. Denies any history of heart or lung disease. States he is urinating just fine and that is of pale yellow. Last time he saw a primary care provider was he says 20 years ago. When he arrived in the ER his oxygen saturations were in the high 70s on room air. He did receive several breathing treatments which she says did help him but he still was quite tachypneic and using accessory muscles and was olivo bsequently put on BiPAP. Chest x-ray with some cephalization and [place] B line patient was given 40 of Lasix and put out 1000 in the Sr bag. I saw him in the ICU he had 400 additional cc in the bag. Also found to be hypertensive in the ED. He does not have any known medical conditions and does not take any home medications. 07/15 Patient can continued to become more more tachypneic last night until the need for intubation was seen. Currently sedated on the vent. No acute distress. Titrating down FiO2. Respiratory rate 20s-30. 07/16 Patient had increased urine output last night. Vent parameters improving. Sedated but awakens partially to voice and moves extremities. Good peak and plateau pressures and on compliance 48. Sedation vacation and weaning trial. 07/17 No issues overnight. Patient stable on the vent without sedation and comfortable. Awake on vent follows commands. Good vent parameters and performing weaning trial this morning. With likely extubation. 07/18 Intubated yesterday placed on BiPAP for most of the day and overnight. Patient seen by speech therapy and put on dysphagia diet. Patient was breakfast this morning and on nasal cannula and doing quite well. Denies any shortness of breath has occasional cough no other complaints. 07/19 Taken off oxygen this morning now on room air. Sitting up eating breakfast. Does have a cough he says he always has a cough does not really notice much shortness of breath. No events overnight other than not sleeping very well. Review of Systems: denies headache/fever/chills/nausea/vomiting/chest or abdominal pain/diarrhea. Otherwise see above. - Constitutional Vitals: Vital Signs Temp Pulse Resp BP Pulse Ox 98.0 F 68 18 139/95 98 07/19/18 04:03 07/19/18 04:03 07/19/18 05:16 07/19/18 05:01 07/19/18 04:03 Period Temp Pulse Resp BP Sys/Madrigal Pulse Ox Last 24 Hr 94.9 F-98.0 F 62-91 15-38 135-190/91-128 90-99 Intake and Output 07/18/18 07/19/18 07/19/18 21:59 05:59 13:59 Intake Total 1380 / 5 50 2054 Output Total 925 / 2295 710 / 2295 Balance 455 / -240 -660 / -240 Weight 59.285 kg Intake & Output: Intake & Output 07/18/18 07/19/18 07/19/18 21:59 05:59 13:59 Intake Total 138 / 5 50 5 Output Total 925 / 2295 710 / 2295 Balance 455 / -240 -660 / -240 Weight 59.285 kg Intake: IV 1020 / 1170 50 / 1170 Sodium Chloride 0.9% 1,000 ml @ 970 / 970 50 mls/hr IV .Q20H [facility] Rx#: [id number] Zosyn 2.25 gm In Dextrose 5% in 50 / 200 50 / 200 Water 50 ml @ 100 mls/hr IV Q6H [facility] Rx#:[id number] Oral 360 / 885 Output: Urine Catheter Amount 925 / 2295 710 / 2295 Other: Meal Dinner Percent of Meal Consumed 100% Feeding Ability Assist with Tray Set Up Urine Appearance Clear Uretheral (Sr) Clear Urine Color Dark Yellow Uretheral (Sr) Dark Yellow Stool Size Small Smear Stool Color Brown Stool Consistency Loose Loose # Bowel Movements 1 # of times incontinent of 1 1 Bowels Exam: General: alert and awake, no acute distress Eyes/N/T: EOMI Head/Neck: neck supple, CV: RRR, no murmurs Pulm: mildly diminished bilaterallyr, no wheezing Abd: soft, +BS x4 Ext: no clubbing/cyanosis/edema Neuro: alert and awake, moves all extremities to command, follows all commands, no focal deficits Skin: warm/dry Medical - PN: Obj Da - Labs CBC & Chem 7: 07/18/18 04:06 07/18/18 04:06 Labs: Abnormal Lab Results 07/19/18 07/18/18 07/18/18 03:57 04:06 04:06 RBC 4.00 L Hgb 13.1 L Hct 38.7 L Gran % 89.1 H Lymph % (Auto) 6.7 L Lymph # (Auto) 0.3 L Potassium 3.2 L 3.2 L BUN 33 H 34 H Creatinine 2.1 H 2.3 H Glucose 185 H 170 H Calcium 8.3 L AST 43 H Lactate Dehydrogenase 385 H Total Protein 5.6 L Albumin 2.8 L Urine Protein Urine Occult Blood Urine RBC 07/17/18 07/16/18 03:45 08:00 RBC Hgb Hct Gran % Lymph % (Auto) Lymph # (Auto) Potassium BUN 43 H Creatinine 3.1 H Glucose 118 H Calcium 8.0 L AST Lactate Dehydrogenase Total Protein Albumin Urine Protein 30 A Urine Occult Blood 0.2 A Urine RBC 25 H Meds: Medications Acetaminophen (Tylenol) 650 mg PO Q6HP PRN PRN Reason: PAIN/FEVER > 101 Last Admin: 07/16/18 12:40 Dose: 650 mg Documented by: Albuterol/Ipratropium (Duoneb) 3 ml NEB Q4HP PRN PRN Reason: Bronchospasm Last Admin: 07/15/18 00:03 Dose: 3 ml Documented by: Albuterol/Ipratropium (Duoneb) 3 ml NEB Q6HRT [facility] Last Admin: 07/19/18 00:44 Dose: 3 ml Documented by: Amlodipine Besylate (Norvasc) 7.5 mg PO DAILY [facility] Last Admin: 07/18/18 08:57 Dose: 7.5 mg Documented by: Clonidine HCl (Catapres) 0.1 mg PO TIDP PRN PRN Reason: SBP>150 Last Admin: 07/19/18 01:31 Dose: 0.1 mg Documented by: Dextrose (Dextrose 50%) 50 ml IV UD PRN PRN Reason: Hypoglycemia Diagnostic Test (Pha) (Accu-Chek) 1 each FS ACHS [facility] Last Admin: 07/18/18 20:39 Dose: 1 each Documented by: Famotidine (Pepcid) 20 mg IV HS [facility] Last Admin: 07/18/18 20:40 Dose: 20 mg Documented by: Heparin Sodium (Porcine) (Heparin) 5,000 unit SQ Q12 [facility] Last Admin: 07/18/18 20:40 Dose: 5,000 unit Documented by: Sodium Chloride (Sodium Chloride 0.9%) 1,000 mls @ 50 mls/hr IV .Q20H [facility] Last Admin: 07/18/18 14:20 Dose: 50 mls/hr Documented by: Piperacillin Sod/Tazobactam (Sod 2.25 gm/ Dextrose) 50 mls @ 100 mls/hr IV Q6H [facility] Last Admin: 07/19/18 06:00 Dose: 100 mls/hr Documented by: Insulin Human Lispro (Humalog) 0 unit SQ [facility]; Protocol Last Admin: 07/18/18 20:39 Dose: 4 unit Documented by: Labetalol HCl (Trandate) 0 mg IV Q2HP PRN PRN Reason: htn Last Admin: 07/19/18 02:49 Dose: 20 mg Documented by: Lorazepam (Ativan) 1 mg IV Q8HP PRN PRN Reason: Anxiety Last Admin: 07/19/18 00:43 Dose: 1 mg Documented by: Methylprednisolone Sodium Succinate (Solu-Medrol) 20 mg IV Q6 [facility] Last Admin: 07/19/18 06:00 Dose: 20 mg Documented by: Ondansetron HCl (Zofran) 4 mg IV Q4HP PRN PRN Reason: Nausea And Vomiting Oseltamivir Phosphate (Tamiflu) 75 mg PO DAILY [facility] Stop: 07/20/18 09:01 Last Admin: 07/18/18 08:58 Dose: 75 mg Documented by: Quetiapine Fumarate (Seroquel) 50 mg PO BID [facility] Last Admin: 07/18/18 20:40 Dose: 50 mg Documented by: Sodium Chloride (Saline Flush) 10 ml IV Q8 [facility] Last Admin: 07/19/18 06:00 Dose: Not Given Documented by: Medical - PN: A/P - Time Spent With Patient Total time spent is greater than 50% in coordination of care (as documented) at patient's floor/unit and/or counseling patient: - Narrative A/P Narrative: A: *Primary INFLUENZA A Pneumonia): *Acute hypoxic respiratory failure: 2/2 above -Intubated early on 07/15 and extubated 1/2 to bipap, now tolerating NC -low PCT, nonproductive cough, he does have fevers -echo with normal EF, unable to assess diastolic fxn and pulmonary artery pressure -down to 2L NC with high sats, no bipap needed since *Lactic acidosis: 2/2 hypoxia, resolved *RADHA on likely CKD (unknown baseline, but suspect mid 1's): ATN from hypoxia -renal u/s with chronic d/c b/l, no obstruction , stenosis of left renal aa -UOP improved -2.1<2.3<3.1<1.5 *Likely COPD, with exacerbation: based on smoking history and CXR appearance *Hypokalemia: resolved *Tobacco abuse: *HTN: has not been on any meds *Has not seen a PCP in 20yrs *Oropharyngeal Dysphagia: P: -prn o2 support -Tamiflu (although was symptomatic for 3-days prior), emiric abx -Pulmonology consulted, steroids (wean as soon as able) -IVF's, i/o's & weights -monitor renal fxn, -prn bp meds, cont norvasc(increase), may need 2nd agent -electrolyte replete prn -smoking cessation counseling -f/u with nephrology for CKD and renal aa stenosis -Diet per ST -pharm to renally dose meds -ppx: heparin Medical - PN: Qual - VTE Deep Vein Thrombosis/Pulmonary Embolism Present on Admission: No
--- NOTE | 2018-07-19 08:43 | XRay Report ---
HISTORY: Cough, body aches and COPD FINDINGS: Patient has moderate generalized interstitial lung disease throughout both lung lamb. This is largely due to COPD with chronic interstitial fibrosis. However, an infiltrate is developing in the left lower lobe, behind the left heart border. This has enlarged since yesterday. The heart size is normal. The pulmonary vessels are obscured by the interstitial fibrosis. There is no pleural effusion. IMPRESSION: Mild left lower lobe pneumonia superimposed upon underlying COPD and pulmonary fibrosis Interpreted and Authenticated by: Cristobal Mccullough 07/19/18
[2018-07-19] MEDS: HEPARIN 5,000 UNIT/ML VIAL SQ SCH ×2 (08:59→21:10)
[2018-07-19] MEDS: POTASSIUM CHLORIDE 20 MEQ TABLET PO ONE ×2 (08:59→09:19)
[2018-07-19] MEDS: OSELTAMIVIR PHOSPHATE 75 MG CAPSULE PO SCH (08:59)
[2018-07-19] MEDS: amLODIPine 5 MG TABLET PO SCH (08:59)
[2018-07-19] MEDS ORDERED: methylPREDNISolone SOD SUCC 40 MG/ML VIAL IV SCH ×2 (09:00→21:00)
[2018-07-19] MEDS: INSULIN LISPRO 1 UNIT/0.01 ML UNIT SQ SCH ×3 (09:00→22:02)
[2018-07-19] MEDS ORDERED: POTASSIUM CHLORIDE 20 MEQ TABLET PO ONE (09:17)
[2018-07-19] MEDS ORDERED: NICOTINE 21 MG PATCH TOPICAL SCH (10:00)
[2018-07-19] MEDS ORDERED: DEXTROSE 50% 50 ML VIAL IV PRN ×2 (11:24→14:14)
[2018-07-19] MEDS ORDERED: IPRATROPIUM/ALBUTEROL 3 ML AMPUL.NEB NEB PRN ×2 (11:24→14:14)
[2018-07-19] MEDS ORDERED: ONDANSETRON 4 MG/2 ML VIAL IV PRN ×2 (11:24→14:14)
[2018-07-19] MEDS ORDERED: LABETALOL 5 MG/ML ML IV PRN (11:24)
[2018-07-19] MEDS ORDERED: LORazepam 2 MG/ML VIAL IV ONE ×2 (11:24→14:14)
[2018-07-19] MEDS ORDERED: 0.9 % SODIUM CHLORIDE 1,000 ML IV SCH ×2 (11:24→14:14)
[2018-07-19] MEDS ORDERED: LORazepam 2 MG/ML VIAL IV PRN (11:24)
[2018-07-19] MEDS ORDERED: ACETAMINOPHEN 325 MG TABLET PO PRN (11:24)
[2018-07-19] MEDS ORDERED: cloNIDine HCL 0.1 MG TABLET PO PRN (11:24)
[2018-07-19] MEDS ORDERED: INSULIN LISPRO 1 UNIT/0.01 ML UNIT SQ SCH (11:30)
[2018-07-19] MEDS ORDERED: PIPERACILLIN SODIUM/TAZOBACTAM 2.25 GM in DEXTROSE 5% IN WATER 50 ML IV SCH (12:00)
[2018-07-19] MEDS ORDERED: IPRATROPIUM/ALBUTEROL 3 ML AMPUL.NEB NEB SCH (13:00)
[2018-07-19] MEDS ORDERED: 0.9 % SODIUM CHLORIDE 10 ML SYRINGE IV SCH (14:00)
[2018-07-19] MEDS ORDERED: POTASSIUM CHLORIDE 20 MEQ TABLET PO SCH (17:30)
[2018-07-19] MEDS ORDERED: OLANZapine 5 MG TABLET PO ONE (20:51)
[2018-07-19] MEDS ORDERED: HEPARIN 5,000 UNIT/ML VIAL SQ SCH (21:00)
[2018-07-19] MEDS ORDERED: FAMOTIDINE 20 MG TABLET PO SCH ×2 (21:00)
[2018-07-19] MEDS ORDERED: traZODone HCL 50 MG TABLET PO SCH ×2 (21:00)
[2018-07-19] MEDS: FAMOTIDINE 20 MG TABLET PO SCH (21:10)
[2018-07-19] MEDS: traZODone HCL 50 MG TABLET PO SCH (21:11)
[2018-07-19] MEDS ORDERED: LORazepam 1 MG TABLET ONE (21:12)
[2018-07-19] MEDS ORDERED: OLANZapine 2.5 MG TABLET PO ONE (21:13)
[2018-07-20] MEDS: PIPERACILLIN SODIUM/TAZOBACTAM 2.25 GM in DEXTROSE 5% IN WATER 50 ML IV SCH ×4 (00:11→18:29)
[2018-07-20] MEDS: LORazepam 2 MG/ML VIAL IV PRN ×3 (00:33→02:52)
[2018-07-20] MEDS: cloNIDine HCL 0.1 MG TABLET PO PRN (01:02)
[2018-07-20] MEDS: IPRATROPIUM/ALBUTEROL 3 ML AMPUL.NEB NEB SCH ×4 (01:37→19:23)
[2018-07-20] MEDS ORDERED: LORazepam 2 MG/ML VIAL ONE (02:49)
[2018-07-20] MEDS: LABETALOL 5 MG/ML ML IV PRN ×5 (03:28→23:07)
[2018-07-20] MEDS ORDERED: OLANZapine 2.5 MG TABLET PO ONE (04:19)
[2018-07-20] MEDS: 0.9 % SODIUM CHLORIDE 10 ML SYRINGE IV SCH ×3 (05:27→20:59)
[2018-07-20 06:04] LABS: Blood Urea Nitrogen 33 mg/dl (6-20)
[2018-07-20] MEDS ORDERED: POTASSIUM CHLORIDE 40 MEQ in DEXTROSE 5% IN WATER 500 ML IV PRN (07:03)
[2018-07-20] MEDS ORDERED: POTASSIUM CHLORIDE 20 MEQ TABLET PO ONE (07:27)
--- NOTE | 2018-07-20 07:56 | Internal Med Progress Note ---
Medical - PN: Subj Patient information: Note initiated : 07/20/18 at 7:54 am Service Date, if different from initiated Date: [] Patient: Breezy Barnard 58 y/o M admitted on 07/14/18 for Cough, body aches. Chief Complaint: [] Interval history: Mr. Barnard is a 58 year old M who presents with cough shortness of breath malaise for 3-4 days. He reports he is had a cough for about 3 days which she says is dry. He has b een around a relative that was sick, however, he denies any fevers or chills. Denies any myalgias does have worsening knee pain. That is a chronic injury and is chronic chronic back pain. He has shortness of breath both states that it actually is little bit better than it was a couple days ago. He says he had a hard time sleeping the past 3 nights that the main reason he came in. He denies having any shortness of breath when he lays flat on his back, no orthopnea. Denies any edema. Denies any history of heart or lung disease. States he is urinating just fine and that is of pale yellow. Last time he saw a primary care provider was he says 20 years ago. When he arrived in the ER his oxygen saturations were in the high 70s on room air. He did receive several breathing treatments which she says did help him but he still was quite tachypneic and using accessory muscles and was olivo bsequently put on BiPAP. Chest x-ray with some cephalization and [place] B line patient was given 40 of Lasix and put out 1000 in the Sr bag. I saw him in the ICU he had 400 additional cc in the bag. Also found to be hypertensive in the ED. He does not have any known medical conditions and does not take any home medications. 07/15 Patient can continued to become more more tachypneic last night until the need for intubation was seen. Currently sedated on the vent. No acute distress. Titrating down FiO2. Respiratory rate 20s-30. 07/16 Patient had increased urine output last night. Vent parameters improving. Sedated but awakens partially to voice and moves extremities. Good peak and plateau pressures and on compliance 48. Sedation vacation and weaning trial. 07/17 No issues overnight. Patient stable on the vent without sedation and comfortable. Awake on vent follows commands. Good vent parameters and performing weaning trial this morning. With likely extubation. 07/18 Intubated yesterday placed on BiPAP for most of the day and overnight. Patient seen by speech therapy and put on dysphagia diet. Patient was breakfast this morning and on nasal cannula and doing quite well. Denies any shortness of breath has occasional cough no other complaints. 07/19 Taken off oxygen this morning now on room air. Sitting up eating breakfast. Does have a cough he says he always has a cough does not really notice much shortness of breath. No events overnight other than not sleeping very well. 07/20 Patient significantly confused delirious and restless. She was score 14. On benzodiazepines/antipsychotics. Persistent elevation blood pressure around 160. Will need outpatient follow-up with PCP. Potassium at 3 on oral iron replacement. No major telemetry events. - Constitutional Vitals: Vital Signs Temp Pulse Resp BP Pulse Ox 96.4 F L 71 32 H 180/113 87 L 07/19/18 20:01 07/20/18 05:01 07/20/18 05:01 07/20/18 05:01 07/20/18 05:01 Period Temp Pulse Resp BP Sys/Madrigal Pulse Ox Last 24 Hr 96.4 F-98.7 F 70-87 14-40 146-182/97-124 87-98 Intake and Output 07/19/18 07/20/18 07/20/18 21:59 05:59 13:59 Intake Total 570 / 2120 850 / 2120 50 / 50 Output Total 510 / 2150 1360 / 2150 480 / 480 Balance 60 / -30 -510 / -30 -430 / -430 Weight 136 lb 14.4 oz Intake & Output: Intake & Output 07/19/18 07/20/18 07/20/18 21:59 05:59 13:59 Intake Total 570 / 2120 850 / 2120 50 / 50 Output Total 510 / 2150 1360 / 2150 480 / 480 Balance 60 / -30 -510 / -30 -430 / -430 Weight 136 lb 14.4 oz Intake: IV 50 / 200 50 / 200 50 / 50 Zosyn 2.25 gm In Dextrose 5% in 50 / 100 50 / 100 50 / 50 Water 50 ml @ 100 mls/hr IV Q6H [facility] Rx#:[id number] Oral 520 / 1920 800 / 1920 Output: Urine Catheter Amount 510 / 2150 1360 / 2150 480 / 480 Other: Meal Dinner Percent of Meal Consumed 50% Feeding Ability Independent Urine Appearance Clear Uretheral (Sr) Clear Clear Clear Urine Color Bright Yellow Pale Uretheral (Sr) Pale Pale Pale Stool Size Moderate Stool Color Brown Black Stool Consistency Liquid General appearance: no acute distress Exam: Sitting on chair no telemetry events intermittent anxiety Nonlabored breathing Medical - PN: Obj Da - Labs CBC & Chem 7: 07/18/18 04:06 07/20/18 03:41 Labs: Abnormal Lab Results 07/20/18 07/19/18 07/18/18 03:41 03:57 04:06 RBC Hgb Hct Gran % Lymph % (Auto) Lymph # (Auto) Potassium 3.0 L 3.2 L 3.2 L Carbon Dioxide 31 H BUN 33 H 33 H 34 H Creatinine 2.0 H 2.1 H 2.3 H Glucose 124 H 185 H 170 H Calcium 8.3 L AST 43 H Lactate Dehydrogenase 385 H Total Protein 5.6 L Albumin 2.8 L 07/18/18 04:06 RBC 4.00 L Hgb 13.1 L Hct 38.7 L Gran % 89.1 H Lymph % (Auto) 6.7 L Lymph # (Auto) 0.3 L Potassium Carbon Dioxide BUN Creatinine Glucose Calcium AST Lactate Dehydrogenase Total Protein Albumin Meds: Medications Acetaminophen (Tylenol) 650 mg PO Q6HP PRN PRN Reason: PAIN/FEVER > 101 Albuterol/Ipratropium (Duoneb) 3 ml NEB Q4HP PRN PRN Reason: Bronchospasm Albuterol/Ipratropium (Duoneb) 3 ml NEB Q6HRT [facility] Last Admin: 07/20/18 01:37 Dose: 3 ml Documented by: Amlodipine Besylate (Norvasc) 10 mg PO DAILY [facility] Clonidine HCl (Catapres) 0.1 mg PO TIDP PRN PRN Reason: SBP>150 Last Admin: 07/20/18 01:02 Dose: 0.1 mg Documented by: Dextrose (Dextrose 50%) 50 ml IV UD PRN PRN Reason: Hypoglycemia Diagnostic Test (Pha) (Accu-Chek) 1 each FS ACHS [facility] Last Admin: 07/19/18 21:58 Dose: 1 each Documented by: Famotidine (Pepcid) 20 mg PO HS [facility] Last Admin: 07/19/18 21:10 Dose: 20 mg Documented by: Heparin Sodium (Porcine) (Heparin) 5,000 unit SQ Q12 [facility] Last Admin: 07/19/18 21:10 Dose: 5,000 unit Documented by: Piperacillin Sod/Tazobactam (Sod 2.25 gm/ Dextrose) 50 mls @ 100 mls/hr IV Q6H [facility] Last Infusion: 07/20/18 06:28 Dose: Infused Documented by: Potassium Chloride 40 meq/ (Dextrose) 520 mls @ 130 mls/hr IV UD PRN PRN Reason: K+ = or < 3.5 Insulin Human Lispro (Humalog) 0 unit SQ ACHS [facility]; Protocol Last Admin: 07/19/18 22:02 Dose: 8 unit Documented by: Labetalol HCl (Trandate) 0 mg IV Q2HP PRN PRN Reason: htn Last Admin: 07/20/18 05:23 Dose: 20 mg Documented by: Loperamide HCl (Imodium) 2 mg PO PRN PRN PRN Reason: Diarrhea Lorazepam (Ativan) 0 mg IV Q1HP PRN; Protocol PRN Reason: Alcohol Withdrawal Last Admin: 07/20/18 02:52 Dose: 2 mg Documented by: Methylprednisolone Sodium Succinate (Solu-Medrol) 20 mg IV Q12 [facility] Last Admin: 07/19/18 21:10 Dose: 20 mg Documented by: Nicotine (Nicoderm) 21 mg TOPICAL DAILY@1000 [facility] Olanzapine (Zyprexa) 5 mg PO Q4HP PRN PRN Reason: Agitation Ondansetron HCl (Zofran) 4 mg IV Q4HP PRN PRN Reason: Nausea And Vomiting Oseltamivir Phosphate (Tamiflu) 75 mg PO DAILY [facility] Stop: 07/20/18 09:01 Potassium Chloride (Potassium Chloride) 15 meq PT BIDCC [facility] Sodium Chloride (Saline Flush) 10 ml IV Q8 [facility] Last Admin: 07/20/18 05:27 Dose: 10 ml Documented by: Trazodone HCl (Desyrel) 50 mg PO HS [facility] Stop: 07/20/18 21:01 Last Admin: 07/19/18 21:11 Dose: 50 mg Documented by: Medical - PN: A/P - Time Spent With Patient Total time spent is greater than 50% in coordination of care (as documented) at patient's floor/unit and/or counseling patient: (1) Influenza A with pneumonia Status: Acute Assessment and plan: A: * Primary INFLUENZA A Pneumonia): Continue Tamiflu * Alcohol withdrawal with delirium-continue benzodiazepines/antipsychotics/supportive care. * Acute hypoxic respiratory failure: 2/2 above -Intubated early on 07/15 and extubated 1/2 to bipap, now tolerating NC -low PCT, nonproductive cough, he does have fevers -echo with normal EF, unable to assess diastolic fxn and pulmonary artery pressure -down to 2L NC with high sats, no bipap needed since * RADHA on likely CKD (unknown baseline, but suspect mid 1's): Creatinine around 2. Unclear baseline. * Likely COPD, with exacerbation: based on smoking history and CXR appearance * Hypokalemia: Continue IV and oral replacement * Tobacco abuse: * HTN: Continue Norvasc/clonidine. No PCP in 20 years P: -Continue ICU monitoring in light of alcohol withdrawal -Antibiotics/Tamiflu -Electrolyte replacement -Blood pressure management -f/u with nephrology for CKD and renal aa stenosis -Nutrition support -ppx: heparin Current Visit: Yes Medical - PN: Qual - VTE Deep Vein Thrombosis/Pulmonary Embolism Present on Admission: No
[2018-07-20] MEDS: INSULIN LISPRO 1 UNIT/0.01 ML UNIT SQ SCH ×4 (08:09→21:09)
[2018-07-20] MEDS: methylPREDNISolone SOD SUCC 40 MG/ML VIAL IV SCH ×2 (08:54→20:43)
[2018-07-20] MEDS: HEPARIN 5,000 UNIT/ML VIAL SQ SCH ×2 (08:54→20:44)
[2018-07-20] MEDS: POTASSIUM CHLORIDE 20 MEQ/15 ML ML PT SCH ×2 (08:55→17:21)
[2018-07-20] MEDS: amLODIPine 10 MG TABLET PO SCH (08:55)
[2018-07-20] MEDS ORDERED: OSELTAMIVIR PHOSPHATE 75 MG CAPSULE PO SCH ×2 (09:00)
[2018-07-20] MEDS ORDERED: amLODIPine 10 MG TABLET PO SCH ×2 (09:00)
[2018-07-20] MEDS: OLANZapine 5 MG TABLET PO PRN ×2 (09:33→20:44)
[2018-07-20] MEDS: LOPERAMIDE 2 MG CAPSULE PO PRN ×2 (09:33→14:47)
[2018-07-20] MEDS: NICOTINE 21 MG PATCH TOPICAL SCH (09:33)
[2018-07-20] MEDS ORDERED: NICOTINE 21 MG PATCH TOPICAL SCH (10:00)
[2018-07-20] MEDS ORDERED: METOPROLOL SUCCINATE 25 MG TAB.XL.24H PO ONE (10:30)
--- NOTE | 2018-07-20 14:14 | XRay Report ---
HISTORY: Left lower lobe pneumonia and pulmonary fibrosis FINDINGS: There is an ill-defined relatively small consolidating infiltrate in the left lower lobe. Patient has underlying moderate diffuse interstitial lung disease which may be a combination of pulmonary fibrosis and an interstitial inflammatory reaction. Lung volumes are normal. No pleural effusion is detected. The heart size is normal. There has been no significant change since yesterday. IMPRESSION: no significant change with persistent mild left lower lobe pneumonia and underlying pulmonary fibrosis IMPRESSION: Interpreted and Authenticated by: Cristobal Mccullough 07/20/18
[2018-07-20] MEDS ORDERED: OLANZapine 5 MG TABLET PO SCH (20:00)
[2018-07-20] MEDS: traZODone HCL 50 MG TABLET PO SCH (20:44)
[2018-07-20] MEDS: FAMOTIDINE 20 MG TABLET PO SCH (20:44)
[2018-07-21] MEDS: PIPERACILLIN SODIUM/TAZOBACTAM 2.25 GM in DEXTROSE 5% IN WATER 50 ML IV SCH ×5 (00:27→23:53)
[2018-07-21] MEDS: LORazepam 2 MG/ML VIAL IV PRN ×4 (00:28→02:30)
[2018-07-21] MEDS: 0.9 % SODIUM CHLORIDE 10 ML SYRINGE IV SCH ×4 (00:29→21:30)
[2018-07-21] MEDS: IPRATROPIUM/ALBUTEROL 3 ML AMPUL.NEB NEB SCH ×4 (00:31→20:00)
[2018-07-21] MEDS: OLANZapine 5 MG TABLET PO PRN ×3 (01:07→21:29)
[2018-07-21] MEDS ORDERED: DEXMEDETOMIDINE HCL 400 MCG/100 ML BAG IV ONE (02:25)
[2018-07-21] MEDS: DEXMEDETOMIDINE HCL 400 MCG/100 ML BAG IV SCH ×3 (02:45→21:32)
--- NOTE | 2018-07-21 07:07 | Internal Med Progress Note ---
Medical - PN: Subj Patient information: Note initiated : 07/21/18 at 7:04 am Service Date, if different from initiated Date: [] Patient: Breezy Barnard 58 y/o M admitted on 07/14/18 for Cough, body aches. Chief Complaint: [] Interval history: Mr. Barnard is a 58 year old M who presents with cough shortness of breath malaise for 3-4 days. He reports he is had a cough for about 3 days which she says is dry. He has b een around a relative that was sick, however, he denies any fevers or chills. Denies any myalgias does have worsening knee pain. That is a chronic injury and is chronic chronic back pain. He has shortness of breath both states that it actually is little bit better than it was a couple days ago. He says he had a hard time sleeping the past 3 nights that the main reason he came in. He denies having any shortness of breath when he lays flat on his back, no orthopnea. Denies any edema. Denies any history of heart or lung disease. States he is urinating just fine and that is of pale yellow. Last time he saw a primary care provider was he says 20 years ago. When he arrived in the ER his oxygen saturations were in the high 70s on room air. He did receive several breathing treatments which she says did help him but he still was quite tachypneic and using accessory muscles and was olivo bsequently put on BiPAP. Chest x-ray with some cephalization and [place] B line patient was given 40 of Lasix and put out 1000 in the Sr bag. I saw him in the ICU he had 400 additional cc in the bag. Also found to be hypertensive in the ED. He does not have any known medical conditions and does not take any home medications. 07/15 Patient can continued to become more more tachypneic last night until the need for intubation was seen. Currently sedated on the vent. No acute distress. Titrating down FiO2. Respiratory rate 20s-30. 07/16 Patient had increased urine output last night. Vent parameters improving. Sedated but awakens partially to voice and moves extremities. Good peak and plateau pressures and on compliance 48. Sedation vacation and weaning trial. 07/17 No issues overnight. Patient stable on the vent without sedation and comfortable. Awake on vent follows commands. Good vent parameters and performing weaning trial this morning. With likely extubation. 07/18 Intubated yesterday placed on BiPAP for most of the day and overnight. Patient seen by speech therapy and put on dysphagia diet. Patient was breakfast this morning and on nasal cannula and doing quite well. Denies any shortness of breath has occasional cough no other complaints. 07/19 Taken off oxygen this morning now on room air. Sitting up eating breakfast. Does have a cough he says he always has a cough does not really notice much shortness of breath. No events overnight other than not sleeping very well. 07/20 Patient significantly confused delirious and restless. She was score 14. On benzodiazepines/antipsychotics. Persistent elevation blood pressure around 160. Will need outpatient follow-up with PCP. Potassium at 3 on oral iron replacement. No major telemetry events. 07/21-patient continues to be hypertensive and actively withdrawing with CIWAA scores in 20. Started on Precedex drip. Continue critical care management for high risk DT. Systolics has improved to 160 since. Continue IV thiamine. Consider neuroimaging if continues to worsen clinically - Constitutional Vitals: Vital Signs Temp Pulse Resp BP Pulse Ox 98.8 F 67 23 H 161/106 94 07/21/18 04:00 07/21/18 06:31 07/21/18 06:31 07/21/18 06:31 07/21/18 06:31 Period Temp Pulse Resp BP Sys/Madrigal Pulse Ox Last 24 Hr 98.4 F-98.9 F 66-77 16-41 103-244/80-140 91-98 Intake and Output 07/20/18 07/21/18 07/21/18 21:59 05:59 13:59 Intake Total 920 / 2492 292 / 2492 50 / 50 Output Total 251 / 2237 1206 / 2237 Balance 669 / 255 -914 / 255 50 / 50 Weight 138 lb 8 oz Intake & Output: Intake & Output 07/20/18 07/21/18 07/21/18 21:59 05:59 13:59 Intake Total 920 / 2492 292 / 2492 50 / 50 Output Total 251 / 2237 1206 / 2237 Balance 669 / 255 -914 / 255 50 / 50 Weight 138 lb 8 oz Intake: IV 100 / 722 52 / 722 50 / 50 PRECEDEX 400 MCG/100 ML 2 / 2 DEXTROSE 400 mcg In 100 ml @ 0. 2 MCG/KG/HR 3.105 mls/hr IV . Q24H [facility] Rx#:[id number] Zosyn 2.25 gm In Dextrose 5% in 100 / 200 50 / 200 50 / 50 Water 50 ml @ 100 mls/hr IV Q6H [facility] Rx#:[id number] Oral 820 / 1770 240 / 1770 Output: Urine Catheter Amount 655 / 1135 Void Amount 250 / 800 550 / 800 # of times incontinent of urine 1 / 2 1 / 2 Other: Meal Breakfast Percent of Meal Consumed 100% Feeding Ability Independent Urine Appearance Clear Reinserted Sr Clear Urine Color Pale Reinserted Sr Pale Stool Size Small Moderate Stool Color Brown Brown Green Stool Consistency Loose Liquid # Voids 1 1 # of times incontinent of 1 Bowels General appearance: moderate distress Exam: Anxious but improved on Precedex Nonlabored breathing Tachycardia and tachypnea Medical - PN: Obj Da - Labs CBC & Chem 7: 07/18/18 04:06 07/20/18 03:41 Labs: Abnormal Lab Results 07/20/18 07/19/18 03:41 03:57 Potassium 3.0 L 3.2 L Carbon Dioxide 31 H BUN 33 H 33 H Creatinine 2.0 H 2.1 H Glucose 124 H 185 H Meds: Medications Acetaminophen (Tylenol) 650 mg PO Q6HP PRN PRN Reason: PAIN/FEVER > 101 Albuterol/Ipratropium (Duoneb) 3 ml NEB Q4HP PRN PRN Reason: Bronchospasm Albuterol/Ipratropium (Duoneb) 3 ml NEB Q6HRT [facility] Last Admin: 07/21/18 00:31 Dose: 3 ml Documented by: Amlodipine Besylate (Norvasc) 10 mg PO DAILY [facility] Last Admin: 07/20/18 08:55 Dose: 10 mg Documented by: Clonidine HCl (Catapres) 0.1 mg PO TIDP PRN PRN Reason: SBP>150 Last Admin: 07/20/18 01:02 Dose: 0.1 mg Documented by: Dextrose (Dextrose 50%) 50 ml IV UD PRN PRN Reason: Hypoglycemia Diagnostic Test (Pha) (Accu-Chek) 1 each FS ACHS [facility] Last Admin: 07/20/18 21:05 Dose: 1 each Documented by: Famotidine (Pepcid) 20 mg PO HS [facility] Last Admin: 07/20/18 20:44 Dose: 20 mg Documented by: Heparin Sodium (Porcine) (Heparin) 5,000 unit SQ Q12 [facility] Last Admin: 07/20/18 20:44 Dose: 5,000 unit Documented by: Piperacillin Sod/Tazobactam (Sod 2.25 gm/ Dextrose) 50 mls @ 100 mls/hr IV Q6H [facility] Last Infusion: 07/21/18 06:54 Dose: Infused Documented by: Potassium Chloride 40 meq/ (Dextrose) 520 mls @ 130 mls/hr IV UD PRN PRN Reason: K+ = or < 3.5 Last Infusion: 07/20/18 12:10 Dose: Infused Documented by: Dexmedetomidine HCl (Precedex 400 Mcg/100 Ml Dextrose) 400 mcg in 100 mls @ 3.105 mls/hr IV .Q24H [facility]; Protocol Last Titration: 07/21/18 03:15 Dose: 0.3 mcg/kg/hr, 4.657 mls/hr Documented by: Potassium Chloride 20 meq/Magnesium Sulfate 16.24 meq/Thiamine HCl 100 mg/Multivitamins/Minerals 10 ml/Sodium Chloride 1,025 mls @ 0 mls/hr IV .Q0M [facility] Insulin Human Lispro (Humalog) 0 unit SQ ACHS [facility]; Protocol Last Admin: 07/20/18 21:09 Dose: 2 unit Documented by: Labetalol HCl (Trandate) 0 mg IV Q2HP PRN PRN Reason: htn Last Admin: 07/20/18 23:07 Dose: 10 mg Documented by: Loperamide HCl (Imodium) 2 mg PO PRN PRN PRN Reason: Diarrhea Last Admin: 07/20/18 14:47 Dose: 2 mg Documented by: Lorazepam (Ativan) 0 mg IV Q1HP PRN; Protocol PRN Reason: Alcohol Withdrawal Last Admin: 07/21/18 02:30 Dose: 3 mg Documented by: Methylprednisolone Sodium Succinate (Solu-Medrol) 20 mg IV Q12 [facility] Last Admin: 07/20/18 20:43 Dose: 20 mg Documented by: Metoprolol Succinate (Toprol Xl) 25 mg PO DAILY [facility] Nicotine (Nicoderm) 21 mg TOPICAL DAILY@1000 [facility] Last Admin: 07/20/18 09:33 Dose: 21 mg Documented by: Olanzapine (Zyprexa) 5 mg PO Q4HP PRN PRN Reason: Agitation Last Admin: 07/21/18 01:07 Dose: 5 mg Documented by: Ondansetron HCl (Zofran) 4 mg IV Q4HP PRN PRN Reason: Nausea And Vomiting Potassium Chloride (Potassium Chloride) 15 meq PT BIDCC [facility] Last Admin: 07/20/18 17:21 Dose: 15 meq Documented by: Sodium Chloride (Saline Flush) 10 ml IV Q8 [facility] Last Admin: 07/21/18 06:50 Dose: Not Given Documented by: Medical - PN: A/P - Time Spent With Patient Total time spent is greater than 50% in coordination of care (as documented) at patient's floor/unit and/or counseling patient: Greater than 35 minutes (Critical care time) (1) Influenza A with pneumonia Status: Acute Assessment and plan: A: * Alcohol withdrawal with delirium-continue Precedex due to failure to respond to benzodiazepine/antipsychotic. Continue supportive care including crystalloid/electrolyte management and IV thiamine * Acute influenza A-continue steroids bronchodilators and supportive management. * Acute hypoxic respiratory failure: 2/2 above. Clinically improving now on 2 L oxygen -Intubated early on 07/15 and extubated 1/2 to bipap, now tolerating NC -echo with normal EF, unable to assess diastolic fxn and pulmonary artery pressure * RADHA on likely CKD (unknown baseline, but suspect mid 1's): Creatinine around 2. Unclear baseline. * Likely COPD, with exacerbation: based on smoking history and CXR appearance * Hypokalemia: Continue IV and oral replacement * Tobacco abuse: * HTN: Continue Norvasc/clonidine/as needed hydralazine. No PCP in 20 years P: * Continue ICU care in light of alcohol withdrawal * Precedex drip * Optimize blood pressure management * Transition to oral steroids * Nutrition support Current Visit: Yes Medical - PN: Qual - VTE Deep Vein Thrombosis/Pulmonary Embolism Present on Admission: No
[2018-07-21] MEDS: LABETALOL 5 MG/ML ML IV PRN ×2 (07:47→10:08)
[2018-07-21] MEDS: INSULIN LISPRO 1 UNIT/0.01 ML UNIT SQ SCH ×4 (07:54→22:26)
[2018-07-21] MEDS: POTASSIUM CHLORIDE 20 MEQ/15 ML ML PT SCH ×2 (07:55→18:03)
[2018-07-21] MEDS ORDERED: hydrALAZINE 20 MG/ML VIAL IV PRN (07:57)
[2018-07-21 07:58] LABS: Mean Cell Volume 96.5 fL (80.0-100.0); Mean Corpuscular HGB Conc 33.6 g/dL (31.0-36.0); Platelet Count 254 K/mcL (140-440); RBC 4.13 M/mcL (4.50-5.90); Red Cell Distribution Width 13.7 % (11.5-14.5)
[2018-07-21] MEDS ORDERED: POTASSIUM CHLORIDE 20 MEQ, MAGNESIUM SULFATE 16.24 MEQ, THIAMINE 100 MG, MVI, ADULT NO.... IV ONE (08:00)
[2018-07-21 08:16] LABS: ALT/SGPT 46 U/l (0-40); Albumin 2.8 gm/dL (3.2-5.2); Alkaline Phosphatase 43 U/L (39-117); Bilirubin,Direct < 0.2 mg/dL (0.0-0.3); Blood Urea Nitrogen 32 mg/dl (6-20); Gamma Glutamyl Transpeptidase 57 U/L (8-61); Uric Acid 5.3 mg/dL (2.5-8.0)
[2018-07-21 08:21] LABS: Lymphocytes % 18 % (15-49); Monocytes % (Manual) 9 % (1-12); Platelet Estimate NORMAL (NORMAL); RBC Morphology NORMAL (NORMAL); Segmented Neutrophils % 69 % (38-78)
[2018-07-21] MEDS: NICOTINE 21 MG PATCH TOPICAL SCH (08:51)
[2018-07-21] MEDS: HEPARIN 5,000 UNIT/ML VIAL SQ SCH ×2 (08:51→21:29)
[2018-07-21] MEDS: methylPREDNISolone SOD SUCC 40 MG/ML VIAL IV SCH ×2 (08:51→21:30)
[2018-07-21] MEDS ORDERED: METOPROLOL SUCCINATE 25 MG TAB.XL.24H PO SCH (09:00)
[2018-07-21] MEDS ORDERED: METOPROLOL TARTRATE 25 MG TABLET PT SCH (09:00)
--- NOTE | 2018-07-21 09:42 | XRay Report ---
HISTORY: Nasogastric tube insertion FINDINGS: Nasogastric tube has been inserted. The tip is at the gastroesophageal junction and the sidehole in the distal esophagus. The catheter should be advanced several centimeters. The stomach is nondistended. The bowel gas pattern] abdomen is normal. There is no free intra-abdominal air and no widening of the mediastinum. Patient has diffuse interstitial lung disease in the lower thorax. IMPRESSION: Nasogastric tube in the distal esophagus. This needs to be advanced. Interpreted and Authenticated by: Cristobal Mccullough 07/21/18
--- NOTE | 2018-07-21 11:21 | Internal Med Progress Note ---
Medical - PN: Subj Patient information: Note initiated : 07/21/18 at 11:08 am Service Date, if different from initiated Date: [] Patient: Breezy Barnard 58 y/o M admitted on 07/14/18 for Cough, body aches. Chief Complaint: [] Interval history: Mr. Barnard is a 58 year old M who presents with cough shortness of breath malaise for 3-4 days. He reports he is had a cough for about 3 days which she says is dry. He has been around a relative that was sick, however, he denies any fevers or chills. Denies any myalgias does have worsening knee pain. That is a chronic injury and is chronic chronic back pain. He has shortness of breath both states that it actually is little bit better than it was a couple days ago. He says he had a hard time sleeping the past 3 nights that the main reason he came in. He denies having any shortness of breath when he lays flat on his back, no orthopnea. Denies any edema. Denies any history of heart or lung disease. States he is urinating just fine and that is of pale yellow. Last time he saw a primary care provider was he says 20 years ago. When he arrived in the ER his oxygen saturations were in the high 70s on room air. He did receive several breathing treatments which she says did help him but he still was quite tachypneic and using accessory muscles and was s ubsequently put on BiPAP. Chest x-ray with some cephalization and [place] B line patient was given 40 of Lasix and put out 1000 in the Sr bag. I saw him in the ICU he had 400 additional cc in the bag. Also found to be hypertensive in the ED. He does not have any known medical conditions and does not take any home medications. 07/15 Patient can continued to become more more tachypneic last night until the need for intubation was seen. Currently sedated on the vent. No acute distress. Titrating down FiO2. Respiratory rate 20s-30. 07/16 Patient had increased urine output last night. Vent parameters improving. Sedated but awakens partially to voice and moves extremities. Good peak and plateau pressures and on compliance 48. Sedation vacation and weaning trial. 07/17 No issues overnight. Patient stable on the vent without sedation and comfortable. Awake on vent follows commands. Good vent parameters and performing weaning trial this morning. With likely extubation. 07/18 Intubated yesterday placed on BiPAP for most of the day and overnight. Patient seen by speech therapy and put on dysphagia diet. Patient was breakfast this morning and on nasal cannula and doing quite well. Denies any shortness of breath has occasional cough no other complaints. 07/19 Taken off oxygen this morning now on room air. Sitting up eating breakfast. Does have a cough he says he always has a cough does not really notice much shortness of breath. No events overnight other than not sleeping very well. 07/20 Patient significantly confused delirious and restless. She was score 14. On benzodiazepines/antipsychotics. Persistent elevation blood pressure around 160. Will need outpatient follow-up with PCP. Potassium at 3 on oral iron replacement. No major telemetry events. 07/21-patient continues to be hypertensive and actively withdrawing with CIWAA scores in 20. Started on Precedex drip. Continue critical care management for high risk DT. Systolics has improved to 160 since. Continue IV thiamine. Consider neuroimaging if continues to worsen clinically more labored this mid morning and started back on bipap. Review of Systems: denies headache/fever/chills/nausea/vomiting/chest or abdominal pain/diarrhea. Otherwise see above. - Constitutional Vitals: Vital Signs Temp Pulse Resp BP Pulse Ox 98.1 F 89 38 H 179/154 92 07/21/18 07:16 07/21/18 09:31 07/21/18 09:31 07/21/18 09:31 07/21/18 09:31 Period Temp Pulse Resp BP Sys/Madrigal Pulse Ox Last 24 Hr 98.1 F-98.9 F 65-89 16-51 103-244/80-166 91-100 Intake and Output 07/20/18 07/21/18 07/21/18 21:59 05:59 13:59 Intake Total 920 / 2492 292 / 2492 87 / 87 Output Total 251 / 2237 1206 / 2237 790 / 790 Balance 669 / 255 -914 / 255 -703 / -703 Weight 62.823 kg Intake & Output: Intake & Output 07/20/18 07/21/18 07/21/18 21:59 05:59 13:59 Intake Total 920 / 2492 292 / 2492 Output Total 251 / 2237 1206 / 2237 790 / 790 Balance 669 / 255 -914 / 255 -703 / -703 Weight 62.823 kg Intake: IV 100 / 722 52 / 722 / PRECEDEX 400 MCG/100 ML 2 / 2 37 / 37 DEXTROSE 400 mcg In 100 ml @ 0. 2 MCG/KG/HR 3.105 mls/hr IV . Q24H [facility] Rx#:[id number] Zosyn 2.25 gm In Dextrose 5% in 100 / 200 50 / 200 50 / 50 Water 50 ml @ 100 mls/hr IV Q6H [facility] Rx#:[id number] Oral 820 / 1770 240 / 1770 Output: Urine Catheter Amount 655 / 1135 790 / 790 Void Amount 250 / 800 550 / 800 # of times incontinent of urine 1 / 2 1 / 2 Other: Meal Breakfast Percent of Meal Consumed 100% Feeding Ability Independent Urine Appearance Clear Clear Reinserted Rs Clear Clear Urine Color Pale Pale Reinserted Sr Pale Pale Urine Odor Normal Stool Size Small Moderate Stool Color Brown Brown Green Stool Consistency Loose Liquid # Voids 1 1 # of times incontinent of 1 Bowels Exam: General: sedated, no acute distress Eyes/N/T: EOMI Head/Neck: neck supple, CV: RRR, no murmurs Pulm: mildly diminished bilaterally, tachypneic Abd: soft, +BS x4 Ext: no clubbing/cyanosis/edema Neuro: sedated, moves all extremities to command, follows all commands, no focal deficits Skin: warm/dry Medical - PN: Obj Da - Labs CBC & Chem 7: 07/21/18 07:30 07/21/18 07:30 Labs: Abnormal Lab Results 07/21/18 07/21/18 07/20/18 07:30 07:30 03:41 RBC 4.13 L Hgb 13.4 L Hct 39.8 L Reactive Lymphocytes 4 H Potassium 3.0 L Carbon Dioxide 31 H BUN 32 H 33 H Creatinine 1.8 H 2.0 H Glucose 129 H 124 H AST 50 H ALT 46 H Lactate Dehydrogenase 325 H Total Protein 5.6 L Albumin 2.8 L Triglycerides 156 H 07/19/18 03:57 RBC Hgb Hct Reactive Lymphocytes Potassium 3.2 L Carbon Dioxide BUN 33 H Creatinine 2.1 H Glucose 185 H AST ALT Lactate Dehydrogenase Total Protein Albumin Triglycerides Meds: Medications Acetaminophen (Tylenol) 650 mg PO Q6HP PRN PRN Reason: PAIN/FEVER > 101 Albuterol/Ipratropium (Duoneb) 3 ml NEB Q4HP PRN PRN Reason: Bronchospasm Albuterol/Ipratropium (Duoneb) 3 ml NEB Q6HRT [facility] Last Admin: 07/21/18 07:43 Dose: 3 ml Documented by: Amlodipine Besylate (Norvasc) 10 mg PO DAILY [facility] Last Admin: 07/20/18 08:55 Dose: 10 mg Documented by: Clonidine HCl (Catapres) 0.1 mg PO TIDP PRN PRN Reason: SBP>150 Last Admin: 07/20/18 01:02 Dose: 0.1 mg Documented by: Dextrose (Dextrose 50%) 50 ml IV UD PRN PRN Reason: Hypoglycemia Diagnostic Test (Pha) (Accu-Chek) 1 each FS ACHS [facility] Last Admin: 07/21/18 07:54 Dose: 1 each Documented by: Famotidine (Pepcid) 20 mg PO HS [facility] Last Admin: 07/20/18 20:44 Dose: 20 mg Documented by: Heparin Sodium (Porcine) (Heparin) 5,000 unit SQ Q12 [facility] Last Admin: 07/21/18 08:51 Dose: 5,000 unit Documented by: Hydralazine HCl (Apresoline) 20 mg IV Q6HP PRN PRN Reason: Hypertension Last Admin: 07/21/18 09:10 Dose: 20 mg Documented by: Piperacillin Sod/Tazobactam (Sod 2.25 gm/ Dextrose) 50 mls @ 100 mls/hr IV Q6H [facility] Last Infusion: 07/21/18 06:54 Dose: Infused Documented by: Potassium Chloride 40 meq/ (Dextrose) 520 mls @ 130 mls/hr IV UD PRN PRN Reason: K+ = or < 3.5 Last Infusion: 07/20/18 12:10 Dose: Infused Documented by: Dexmedetomidine HCl (Precedex 400 Mcg/100 Ml Dextrose) 400 mcg in 100 mls @ 3.105 mls/hr IV .Q24H [facility]; Protocol Last Titration: 07/21/18 10:05 Dose: 0.7 mcg/kg/hr, 10.867 mls/hr Documented by: Thiamine HCl 100 mg/ Sodium (Chloride) 51 mls @ 50 mls/hr IV DAILY [facility] Stop: 07/24/18 10:02 Insulin Human Lispro (Humalog) 0 unit SQ ACHS [facility]; Protocol Last Admin: 07/21/18 07:54 Dose: Not Given Documented by: Labetalol HCl (Trandate) 0 mg IV Q2HP PRN PRN Reason: htn Last Admin: 07/21/18 10:08 Dose: 20 mg Documented by: Loperamide HCl (Imodium) 2 mg PO PRN PRN PRN Reason: Diarrhea Last Admin: 07/20/18 14:47 Dose: 2 mg Documented by: Lorazepam (Ativan) 0 mg IV Q1HP PRN; Protocol PRN Reason: Alcohol Withdrawal Last Admin: 07/21/18 02:30 Dose: 3 mg Documented by: Methylprednisolone Sodium Succinate (Solu-Medrol) 20 mg IV Q12 [facility] Last Admin: 07/21/18 08:51 Dose: 20 mg Documented by: Metoprolol Tartrate (Lopressor) 25 mg PT BID [facility] Nicotine (Nicoderm) 21 mg TOPICAL DAILY@1000 [facility] Last Admin: 07/21/18 08:51 Dose: 21 mg Documented by: Olanzapine (Zyprexa) 5 mg PO Q4HP PRN PRN Reason: Agitation Last Admin: 07/21/18 01:07 Dose: 5 mg Documented by: Ondansetron HCl (Zofran) 4 mg IV Q4HP PRN PRN Reason: Nausea And Vomiting Potassium Chloride (Potassium Chloride) 15 meq PT BIDCC [facility] Last Admin: 07/21/18 07:55 Dose: Not Given Documented by: Sodium Chloride (Saline Flush) 10 ml IV Q8 [facility] Last Admin: 07/21/18 06:50 Dose: Not Given Documented by: Medical - PN: A/P - Time Spent With Patient Total time spent is greater than 50% in coordination of care (as documented) at patient's floor/unit and/or counseling patient: - Narrative A/P Narrative: A: *Primary INFLUENZA A Pneumonia): *Acute hypoxic respiratory failure: 2/2 above -Intubated early on 07/15 & extubated 1/2 to bipap, now tolerating NC -low PCT, nonproductive cough, afebrile -echo with normal EF, unable to assess diastolic fxn and pulmonary artery pressure - *Lactic acidosis: 2/2 hypoxia, resolved *RADHA on likely CKD (unknown baseline, but suspect mid 1's): ATN from hypoxia -renal u/s with chronic d/c b/l, no obstruction , stenosis of left renal aa -UOP improved -1.8<<3.1<<1.4 *Likely COPD, with exacerbation: based on smoking history and CXR appearance *Encephalopahty (worse at night): ?suspected ETOH with withdrawal -UDS neg -CT brain with small lacunar infarct left caudate (not acute), mild atrophy frontal lobes, and chronic ischemic changes. 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 -2/2 sleep deprviation + likely underlying dementia (vascular given CT findings) *Sleep Depravation since admission: *Hypokalemia: resolved *Tobacco abuse: *HTN: has not been on any meds, uncontrolled *Has not seen a PCP in 20yrs *Oropharyngeal Dysphagia: P: -prn o2/bipap support -Tamiflu course finished, Empiric abx -Pulmonology consulted, steroids (wean as soon as able) -IVF's, i/o's & weights -monitor renal fxn, -precidex gtt, wean off in AM -zyprexa prn -prn bp meds, cont norvasc, starte toprol, ACEI not started 2/2 RADHA, attempt to avoid nonselective BB's given COPD, diuretic likely upon d/c -electrolyte replete prn -smoking cessation counseling -f/u with nephrology for CKD and renal aa stenosis -Diet per ST, TF's while sedated -pharm to renally dose meds -ppx: heparin Medical - PN: Qual - VTE Deep Vein Thrombosis/Pulmonary Embolism Present on Admission: No
[2018-07-21] MEDS: POTASSIUM CHLORIDE 20 MEQ in 0.45 % SODIUM CHLORIDE 1,000 ML IV SCH (11:46)
[2018-07-21] MEDS: amLODIPine 10 MG TABLET PO SCH (11:46)
[2018-07-21] MEDS: METOPROLOL SUCCINATE 50 MG TAB.XL.24H PO SCH (11:47)
[2018-07-21] MEDS: hydrALAZINE 20 MG/ML VIAL IV PRN ×2 (13:11→16:30)
--- NOTE | 2018-07-21 14:06 | XRay Report ---
HISTORY: Reposition nasogastric tube FINDINGS: The nasogastric tube has been advanced into the body of the stomach. The sidehole is at the gastroesophageal junction. Stomach is decompressed. No free intra-abdominal air is present. IMPRESSION: Well-positioned nasogastric tube Interpreted and Authenticated by: Cristobal Mccullough 07/21/18
--- NOTE | 2018-07-21 14:58 | Cat Scan Report ---
History: Altered mental status TECHNIQUE: The brain was imaged without contrast at 2.5 mm intervals. Some of the images had to be repeated on account patient motion artifact. Radiation exposure was limited using dose reduction technology. FINDINGS: There is a 4 mm lacunar infarct in the head of the anterior body of the left caudate nucleus. This is seen on axial image #36. No other infarct is detected. There are patchy areas of decreased attenuation in the periventricular white matter in both frontal lobes which may be age-related ischemia, degeneration or secondary to chronic brain injury or substance abuse. There is mild atrophy in the frontal lobes and around sylvian fissures. No abnormal extra-axial fluid collection is present. There is no hemorrhage or mass effect. Calcified plaques are present in the cavernous portions of both internal carotids. IMPRESSION: Small lacunar infarct in the left caudate nucleus. Mild white matter degenerative changes, predominantly involving the frontal lobes Dr. Guzman was called with the results Interpreted and Authenticated by: Cristobal Mccullough 07/21/18
[2018-07-21 15:49] LABS: Vitamin B12 > 2000 pg/ml (232-1245)
[2018-07-21] MEDS: cloNIDine HCL 0.1 MG TABLET PO PRN (16:01)
[2018-07-21] MEDS: FAMOTIDINE 20 MG TABLET PO SCH (21:29)
[2018-07-21] MEDS: ACETAMINOPHEN 325 MG TABLET PO PRN (21:29)
[2018-07-21] MEDS: CHLORHEXIDINE GLUCONATE 1 ML ORAL.SOL SWABMOUTH SCH (21:30)
[2018-07-21] MEDS: 0.9 % SODIUM CHLORIDE 1,000 ML IV SCH (22:28)
[2018-07-22] MEDS: IPRATROPIUM/ALBUTEROL 3 ML AMPUL.NEB NEB SCH ×4 (01:36→19:34)
[2018-07-22] MEDS: DEXMEDETOMIDINE HCL 400 MCG/100 ML BAG IV SCH ×2 (03:00→04:01)
[2018-07-22] MEDS: ACETAMINOPHEN 325 MG TABLET PO PRN (03:57)
[2018-07-22 05:33] LABS: Mean Cell Volume 95.7 fL (80.0-100.0); Mean Corpuscular HGB Conc 33.5 g/dL (31.0-36.0); Platelet Count 275 K/mcL (140-440); RBC 4.26 M/mcL (4.50-5.90); Red Cell Distribution Width 13.7 % (11.5-14.5)
[2018-07-22] MEDS: PIPERACILLIN SODIUM/TAZOBACTAM 2.25 GM in DEXTROSE 5% IN WATER 50 ML IV SCH ×4 (05:51→23:28)
[2018-07-22] MEDS: 0.9 % SODIUM CHLORIDE 10 ML SYRINGE IV SCH ×3 (05:51→22:41)
[2018-07-22 06:04] LABS: ALT/SGPT 58 U/l (0-40); Albumin/Globulin Ratio 1.1 (1.0-2.3); Alkaline Phosphatase 46 U/L (39-117); Bilirubin,Direct < 0.2 mg/dL (0.0-0.3); Blood Urea Nitrogen 33 mg/dl (6-20); Gamma Glutamyl Transpeptidase 66 U/L (8-61); Uric Acid 5.5 mg/dL (2.5-8.0)
[2018-07-22 06:20] LABS: Lymphocytes % 8 % (15-49); Monocytes % (Manual) 9 % (1-12); Platelet Estimate NORMAL (NORMAL); RBC Morphology NORMAL (NORMAL); Segmented Neutrophils % 83 % (38-78)
[2018-07-22] MEDS: INSULIN LISPRO 1 UNIT/0.01 ML UNIT SQ SCH ×4 (07:11→21:30)
--- NOTE | 2018-07-22 07:29 | Internal Med Progress Note ---
Medical - PN: Subj Patient information: Note initiated : 07/22/18 at 7:23 am Service Date, if different from initiated Date: [] Patient: Breezy Barnard 58 y/o M admitted on 07/14/18 for Cough, body aches. Chief Complaint: [] Interval history: Mr. Barnard is a 58 year old M who presents with cough shortness of breath malaise for 3-4 days. He reports he is had a cough for about 3 days which she says is dry. He has b een around a relative that was sick, however, he denies any fevers or chills. Denies any myalgias does have worsening knee pain. That is a chronic injury and is chronic chronic back pain. He has shortness of breath both states that it actually is little bit better than it was a couple days ago. He says he had a hard time sleeping the past 3 nights that the main reason he came in. He denies having any shortness of breath when he lays flat on his back, no orthopnea. Denies any edema. Denies any history of heart or lung disease. States he is urinating just fine and that is of pale yellow. Last time he saw a primary care provider was he says 20 years ago. When he arrived in the ER his oxygen saturations were in the high 70s on room air. He did receive several breathing treatments which she says did help him but he still was quite tachypneic and using accessory muscles and was olivo bsequently put on BiPAP. Chest x-ray with some cephalization and [place] B line patient was given 40 of Lasix and put out 1000 in the Sr bag. I saw him in the ICU he had 400 additional cc in the bag. Also found to be hypertensive in the ED. He does not have any known medical conditions and does not take any home medications. 07/15 Patient can continued to become more more tachypneic last night until the need for intubation was seen. Currently sedated on the vent. No acute distress. Titrating down FiO2. Respiratory rate 20s-30. 07/16 Patient had increased urine output last night. Vent parameters improving. Sedated but awakens partially to voice and moves extremities. Good peak and plateau pressures and on compliance 48. Sedation vacation and weaning trial. 07/17 No issues overnight. Patient stable on the vent without sedation and comfortable. Awake on vent follows commands. Good vent parameters and performing weaning trial this morning. With likely extubation. 07/18 Intubated yesterday placed on BiPAP for most of the day and overnight. Patient seen by speech therapy and put on dysphagia diet. Patient was breakfast this morning and on nasal cannula and doing quite well. Denies any shortness of breath has occasional cough no other complaints. 07/19 Taken off oxygen this morning now on room air. Sitting up eating breakfast. Does have a cough he says he always has a cough does not really notice much shortness of breath. No events overnight other than not sleeping very well. 07/20 Patient significantly confused delirious and restless. She was score 14. On b enzodiazepines/antipsychotics. Persistent elevation blood pressure around 160. Will need outpatient follow-up with PCP. Potassium at 3 on oral iron replacement. No major telemetry events. 07/21-patient continues to be hypertensive and actively withdrawing with CIWAA scores in 20. Started on Precedex drip. Continue critical care management for high risk DT. Systolics has improved to 160 since. Continue IV thiamine. Consider neuroimaging if continues to worsen clinically more labored this mid morning and started back on bipap. 07/22 Off BiPAP to oxymask at 3 L this morning. Respiratory rate 20s. And saturations mid 90s. Following some commands. And weaning down Precedex. Review of Systems: Unable to fully gather because of sedation - Constitutional Vitals: Vital Signs Temp Pulse Resp BP Pulse Ox 97.6 F 62 19 160/101 100 07/22/18 07:00 07/22/18 07:01 07/22/18 07:01 07/22/18 07:01 07/22/18 07:11 Period Temp Pulse Resp BP Sys/Madrigal Pulse Ox Last 24 Hr 97.2 F-100.4 F 59-97 17-56 117-207/82-166 35-100 Intake and Output 07/21/18 07/22/18 07/22/18 21:59 05:59 13:59 Intake Total 1297 / 2330 857 / 2330 50 / 50 Output Total 820 / 3570 570 / 3570 45 / 45 Balance 477 / -1240 287 / -1240 Weight 59.602 kg Intake & Output: Intake & Output 07/21/18 07/22/1807/22/19 21:59 05:59 13:59 Intake Total 1297 / 2330 857 / 2330 50 / 50 Output Total 820 / 3570 570 / 3570 45 / 45 Balance 477 / -1240 287 / -1240 5 / 5 Weight 59.602 kg Intake: IV 1197 / 1523 150 / 1523 50 / 50 PRECEDEX 400 MCG/100 ML 122 / 298 100 / 298 DEXTROSE 400 mcg In 100 ml @ 0. 2 MCG/KG/HR 3.105 mls/hr IV . Q24H [facility] Rx#:[id number] Zosyn 2.25 gm In Dextrose 5% in 50 / 200 50 / 200 50 / 50 Water 50 ml @ 100 mls/hr IV Q6H [facility] Rx#:[id number] Tube Feeding 487 / 487 GI Tube Flush 100 / 320 220 / 320 Output: Urine Catheter Amount 740 / 3490 570 / 3490 45 / 45 Void Amount 80 / 80 Other: Urine Appearance Clear Reinserted Sr Clear Clear Clear Urine Color Light Tracy Reinserted Sr Pale Pale Light Tracy Bright Yellow Urine Odor Normal Exam: General: sedated, no acute distress Eyes/N/T: EOMI Head/Neck: neck supple, CV: RRR, no murmurs Pulm: prolonged exp pharse, no wheezing, unlabored Abd: soft, +BS x4 Ext: no clubbing/cyanosis/edema Neuro: sedated, moves all extremities to command, follows all commands, no focal deficits Skin: warm/dry Medical - PN: Obj Da - Labs CBC & Chem 7: 07/22/18 03:36 07/22/18 03:36 Labs: Abnormal Lab Results 07/22/18 07/22/18 07/21/18 03:36 03:36 14:12 RBC 4.26 L Hgb Hct 40.8 L Seg Neutrophils % 83 H Lymphocytes % 8 L Reactive Lymphocytes Potassium Carbon Dioxide BUN 33 H Creatinine 2.0 H Glucose 137 H Phosphorus 4.8 H GGT 66 H AST 53 H ALT 58 H Lactate Dehydrogenase 312 H Total Protein 5.8 L Albumin 3.0 L Triglycerides 153 H Vitamin B12 > 2000 H 07/21/18 07/21/18 07/20/18 07:30 07:30 03:41 RBC 4.13 L Hgb 13.4 L Hct 39.8 L Seg Neutrophils % Lymphocytes % Reactive Lymphocytes 4 H Potassium 3.0 L Carbon Dioxide 31 H BUN 32 H 33 H Creatinine 1.8 H 2.0 H Glucose 129 H 124 H Phosphorus GGT AST 50 H ALT 46 H Lactate Dehydrogenase 325 H Total Protein 5.6 L Albumin 2.8 L Triglycerides 156 H Vitamin B12 Meds: Medications Acetaminophen (Tylenol) 650 mg PO Q6HP PRN PRN Reason: PAIN/FEVER > 101 Last Admin: 07/22/18 03:57 Dose: 650 mg Documented by: Albuterol/Ipratropium (Duoneb) 3 ml NEB Q4HP PRN PRN Reason: Bronchospasm Albuterol/Ipratropium (Duoneb) 3 ml NEB Q6HRT [facility] Last Admin: 07/22/18 07:19 Dose: 3 ml Documented by: Amlodipine Besylate (Norvasc) 10 mg PO DAILY [facility] Last Admin: 07/21/18 11:46 Dose: 10 mg Documented by: Chlorhexidine Gluconate (Peridex) 15 ml SWABMOUTH BID [facility] Last Admin: 07/21/18 21:30 Dose: 15 ml Documented by: Clonidine HCl (Catapres) 0.1 mg PO QIDP PRN PRN Reason: SBP>150 Last Admin: 07/21/18 16:01 Dose: 0.1 mg Documented by: Dextrose (Dextrose 50%) 50 ml IV UD PRN PRN Reason: Hypoglycemia Diagnostic Test (Pha) (Accu-Chek) 1 each FS ACHS [facility] Last Admin: 07/22/18 07:06 Dose: 1 each Documented by: Famotidine (Pepcid) 20 mg PO HS [facility] Last Admin: 07/21/18 21:29 Dose: 20 mg Documented by: Heparin Sodium (Porcine) (Heparin) 5,000 unit SQ Q12 [facility] Last Admin: 07/21/18 21:29 Dose: 5,000 unit Documented by: Hydralazine HCl (Apresoline) 0 mg IV Q2HP PRN PRN Reason: Hypertension Last Admin: 07/21/18 16:30 Dose: 20 mg Documented by: Piperacillin Sod/Tazobactam (Sod 2.25 gm/ Dextrose) 50 mls @ 100 mls/hr IV Q6H [facility] Last Infusion: 07/22/18 06:37 Dose: Infused Documented by: Potassium Chloride 40 meq/ (Dextrose) 520 mls @ 130 mls/hr IV UD PRN PRN Reason: K+ = or < 3.5 Last Infusion: 07/20/18 12:10 Dose: Infused Documented by: Dexmedetomidine HCl (Precedex 400 Mcg/100 Ml Dextrose) 400 mcg in 100 mls @ 3.105 mls/hr IV .Q24H [facility]; Protocol Last Admin: 07/22/18 04:01 Dose: 0.9 mcg/kg/hr, 13.972 mls/hr Documented by: Thiamine HCl 100 mg/ Sodium (Chloride) 51 mls @ 50 mls/hr IV DAILY [facility] Stop: 07/24/18 10:02 Potassium Chloride 20 meq/ (Sodium Chloride) 1,010 mls @ 50 mls/hr IV Q20H [facility] Last Admin: 07/21/18 11:46 Dose: 50 mls/hr Documented by: Insulin Human Lispro (Humalog) 0 unit SQ ACHS [facility]; Protocol Last Admin: 07/22/18 07:11 Dose: Not Given Documented by: Labetalol HCl (Trandate) 0 mg IV Q2HP PRN PRN Reason: htn Last Admin: 07/21/18 10:08 Dose: 20 mg Documented by: Loperamide HCl (Imodium) 2 mg PO PRN PRN PRN Reason: Diarrhea Last Admin: 07/20/18 14:47 Dose: 2 mg Documented by: Lorazepam (Ativan) 0 mg IV Q1HP PRN; Protocol PRN Reason: Alcohol Withdrawal Last Admin: 07/21/18 02:30 Dose: 3 mg Documented by: Methylprednisolone Sodium Succinate (Solu-Medrol) 20 mg IV Q12 [facility] Last Admin: 07/21/18 21:30 Dose: 20 mg Documented by: Metoprolol Succinate (Toprol Xl) 50 mg PO DAILY [facility] Last Admin: 07/21/18 11:47 Dose: Not Given Documented by: Morphine Sulfate (Morphine) 1 - 2 mg IV Q2HP PRN PRN Reason: Agitation Last Admin: 07/22/18 06:56 Dose: 2 mg Documented by: Nicotine (Nicoderm) 21 mg TOPICAL DAILY@1000 [place] Last Admin: 07/21/18 08:51 Dose: 21 mg Documented by: Olanzapine (Zyprexa) 5 mg PO Q4HP PRN PRN Reason: Agitation Last Admin: 07/21/18 21:29 Dose: 5 mg Documented by: Ondansetron HCl (Zofran) 4 mg IV Q4HP PRN PRN Reason: Nausea And Vomiting Potassium Chloride (Potassium Chloride) 15 meq PT BIDCC [facility] Last Admin: 07/21/18 18:03 Dose: 15 meq Documented by: Sodium Chloride (Saline Flush) 10 ml IV Q8 [facility] Last Admin: 07/22/18 05:51 Dose: Not Given Documented by: Medical - PN: A/P - Time Spent With Patient Total time spent is greater than 50% in coordination of care (as documented) at patient's floor/unit and/or counseling patient: - Narrative A/P Narrative: A: *Primary INFLUENZA A Pneumonia): slow recovery *Acute hypoxic respiratory failure: 2/2 above -Intubated early on 07/15 & extubated 1/2 to bipap, tolerated NC/room air for several days but placed back on bipap yesterday -low PCT, nonproductive cough, afebrile -echo with normal EF, unable to assess diastolic fxn and pulmonary artery pressure -no on 3L oxymask *Lactic acidosis: 2/2 hypoxia, resolved *RADHA on likely CKD (unknown baseline, but suspect mid 1's): ATN from hypoxia -renal u/s with chronic dz b/l, no obstruction , stenosis of left renal aa -UOP improved -2.0<1.8<<3.1<<1.4 *Likely COPD, with exacerbation: based on smoking history and CXR appearance *Encephalopathy (worse at night): ?suspected ETOH with withdrawal vs likely sleep deprivation compounded by underlying dementia + icu delerium -UDS neg -CT brain with small lacunar infarct left caudate (not acute), mild atrophy frontal lobes, and chronic ischemic changes. 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 -2/2 sleep deprivation + likely underlying dementia (vascular given CT findings) -improving *Sleep Deprivation since admission: *Hypokalemia: resolved *Tobacco abuse: *HTN: has not been on any meds, uncontrolled *Has not seen a PCP in 20yrs *Oropharyngeal Dysphagia: P: -prn o2/bipap support wean to NC/room air -Tamiflu course finished, Empiric abx -Pulmonology consulted, steroids (wean as soon as able) -IVF's, i/o's & weights -monitor renal fxn, -precidex gtt, wean off -zyprexa prn -prn bp meds, cont norvasc, started toprol, ACEI not started 2/2 RADHA, attempt to avoid nonselective BB's given COPD, diuretic likely upon d/c -electrolyte replete prn -smoking cessation counseling -f/u with nephrology for CKD and renal aa stenosis -Diet per ST, TF's while sedated -pharm to renally dose meds -ppx: heparin Medical - PN: Qual - VTE Deep Vein Thrombosis/Pulmonary Embolism Present on Admission: No
[2018-07-22] MEDS ORDERED: OLANZapine 5 MG TABLET PO PRN (08:59)
[2018-07-22] MEDS ORDERED: THIAMINE 100 MG in 0.9 % SODIUM CHLORIDE 50 ML IV SCH (09:00)
[2018-07-22] MEDS: methylPREDNISolone SOD SUCC 40 MG/ML VIAL IV SCH ×2 (09:06→21:19)
[2018-07-22] MEDS: HEPARIN 5,000 UNIT/ML VIAL SQ SCH ×2 (09:06→21:20)
[2018-07-22] MEDS: THIAMINE 100 MG in 0.9 % SODIUM CHLORIDE 50 ML IV SCH (09:07)
[2018-07-22] MEDS: POTASSIUM CHLORIDE 20 MEQ in 0.45 % SODIUM CHLORIDE 1,000 ML IV SCH (09:08)
[2018-07-22] MEDS: amLODIPine 10 MG TABLET PO SCH (09:08)
[2018-07-22] MEDS: METOPROLOL SUCCINATE 50 MG TAB.XL.24H PO SCH (09:08)
[2018-07-22] MEDS: CHLORHEXIDINE GLUCONATE 1 ML ORAL.SOL SWABMOUTH SCH ×2 (09:08→22:24)
[2018-07-22] MEDS: POTASSIUM CHLORIDE 20 MEQ/15 ML ML PT SCH ×2 (09:09→17:54)
[2018-07-22] MEDS: NICOTINE 21 MG PATCH TOPICAL SCH (10:48)
[2018-07-22] MEDS ORDERED: diphenhydrAMINE 25 MG CAPSULE PO SCH (21:00)
[2018-07-22] MEDS ORDERED: OLANZapine 5 MG TABLET PO SCH (21:00)
[2018-07-22] MEDS: FAMOTIDINE 20 MG TABLET PO SCH (21:19)
[2018-07-22] MEDS: hydrALAZINE 20 MG/ML VIAL IV PRN (22:41)
[2018-07-23] MEDS: cloNIDine HCL 0.1 MG TABLET PO PRN (00:02)
[2018-07-23] MEDS: IPRATROPIUM/ALBUTEROL 3 ML AMPUL.NEB NEB SCH ×4 (00:59→18:36)
[2018-07-23] MEDS: hydrALAZINE 20 MG/ML VIAL IV PRN (01:01)
[2018-07-23] MEDS: LABETALOL 5 MG/ML ML IV PRN ×2 (02:36→05:27)
[2018-07-23] MEDS: DEXMEDETOMIDINE HCL 400 MCG/100 ML BAG IV SCH (03:00)
[2018-07-23] MEDS: PIPERACILLIN SODIUM/TAZOBACTAM 2.25 GM in DEXTROSE 5% IN WATER 50 ML IV SCH (05:28)
[2018-07-23] MEDS: 0.9 % SODIUM CHLORIDE 10 ML SYRINGE IV SCH ×4 (06:13→21:37)
[2018-07-23 06:39] LABS: ALT/SGPT 47 U/l (0-40); Albumin 3.3 gm/dL (3.2-5.2); Albumin/Globulin Ratio 1.1 (1.0-2.3); Alkaline Phosphatase 49 U/L (39-117); Bilirubin,Direct < 0.2 mg/dL (0.0-0.3); Blood Urea Nitrogen 34 mg/dl (6-20); Gamma Glutamyl Transpeptidase 61 U/L (8-61)
--- NOTE | 2018-07-23 07:20 | Internal Med Progress Note ---
Medical - PN: Subj Patient information: Note initiated : 07/23/18 at 7:14 am Service Date, if different from initiated Date: [] Patient: Breezy Barnard 58 y/o M admitted on 07/14/18 for Cough, body aches. Chief Complaint: [] Interval history: Mr. Barnard is a 58 year old M who presents with cough shortness of breath malaise for 3-4 days. He reports he is had a cough for about 3 days which she says is dry. He has b een around a relative that was sick, however, he denies any fevers or chills. Denies any myalgias does have worsening knee pain. That is a chronic injury and is chronic chronic back pain. He has shortness of breath both states that it actually is little bit better than it was a couple days ago. He says he had a hard time sleeping the past 3 nights that the main reason he came in. He denies having any shortness of breath when he lays flat on his back, no orthopnea. Denies any edema. Denies any history of heart or lung disease. States he is urinating just fine and that is of pale yellow. Last time he saw a primary care provider was he says 20 years ago. When he arrived in the ER his oxygen saturations were in the high 70s on room air. He did receive several breathing treatments which she says did help him but he still was quite tachypneic and using accessory muscles and was olivo bsequently put on BiPAP. Chest x-ray with some cephalization and [place] B line patient was given 40 of Lasix and put out 1000 in the Sr bag. I saw him in the ICU he had 400 additional cc in the bag. Also found to be hypertensive in the ED. He does not have any known medical conditions and does not take any home medications. 07/15 Patient can continued to become more more tachypneic last night until the need for intubation was seen. Currently sedated on the vent. No acute distress. Titrating down FiO2. Respiratory rate 20s-30. 07/16 Patient had increased urine output last night. Vent parameters improving. Sedated but awakens partially to voice and moves extremities. Good peak and plateau pressures and on compliance 48. Sedation vacation and weaning trial. 07/17 No issues overnight. Patient stable on the vent without sedation and comfortable. Awake on vent follows commands. Good vent parameters and performing weaning trial this morning. With likely extubation. 07/18 Intubated yesterday placed on BiPAP for most of the day and overnight. Patient seen by speech therapy and put on dysphagia diet. Patient was breakfast this morning and on nasal cannula and doing quite well. Denies any shortness of breath has occasional cough no other complaints. 07/19 Taken off oxygen this morning now on room air. Sitting up eating breakfast. Does have a cough he says he always has a cough does not really notice much shortness of breath. No events overnight other than not sleeping very well. 07/20 Patient significantly confused delirious and restless. She was score 14. On b enzodiazepines/antipsychotics. Persistent elevation blood pressure around 160. Will need outpatient follow-up with PCP. Potassium at 3 on oral iron replacement. No major telemetry events. 07/21-patient continues to be hypertensive and actively withdrawing with CIWAA scores in 20. Started on Precedex drip. Continue critical care management for high risk DT. Systolics has improved to 160 since. Continue IV thiamine. Consider neuroimaging if continues to worsen clinically more labored this mid morning and started back on bipap. 07/22 Off BiPAP to oxymask at 3 L this morning. Respiratory rate 20s. And saturations mid 90s. Following some commands. And weaning down Precedex. 07/23 Doing quite well this morning. Sitting up eating breakfast with dysphagia diet. He is on room air coherent and carrying a conversation on and I am unable to understand his verbalizations. When asked about alcohol intake he says he does drink moonshine only once a week. No other liquor/beer. Does have a cough nonproductive at this time. Denies shortness of breath. Review of Systems: denies headache/fever/chills/nausea/vomiting/chest or abdominal pain/diarrhea. Otherwise see above. - Constitutional Vitals: Vital Signs Temp Pulse Resp BP Pulse Ox 100.9 F H 81 25 H 168/111 98 07/23/18 04:01 07/23/18 06:01 07/23/18 06:01 07/23/18 06:01 07/23/18 06:01 Period Temp Pulse Resp BP Sys/Madrigal Pulse Ox Last 24 Hr 98.3 F-100.9 F 67-110 15-40 127-212/90-157 89-100 Intake and Output 07/22/18 07/23/18 07/23/18 21:59 05:59 13:59 Intake Total 590 / 2264 390 / 2264 50 / 50 Output Total 417 / 2616 1785 / 2616 130 / 130 Balance 173 / -352 -1395 / -352 -80 / -80 Weight 61.507 kg Intake & Output: Intake & Output 07/22/18 07/23/18 07/23/18 21:59 05:59 13:59 Intake Total 590 / 2264 390 / 2264 50 / 50 Output Total 417 / 2616 1785 / 2616 130 / 130 Balance 173 / -352 -1395 / -352 -80 / -80 Weight 61.507 kg Intake: IV 50 / 1384 50 / 1384 50 / 50 Zosyn 2.25 gm In Dextrose 5% in 50 / 250 50 / 250 50 / 50 Water 50 ml @ 100 mls/hr IV Q6H [facility] Rx#:[id number] Oral 480 / 820 340 / 820 Tube Feeding 60 / 60 Output: Urine Catheter Amount 417 / 2601 1770 / 2601 130 / 130 Void Amount 15 / 15 Other: Meal Dinner Percent of Meal Consumed 100% Feeding Ability Needs Supervision Urine Appearance Clear Clear Reinserted Sr Clear Clear Urine Color Light Tracy Light Tracy Reinserted Sr Pale Light Tracy Urine Odor Normal Stool Size Moderate Moderate Stool Color Brown Brown Stool Consistency Loose Loose # of times incontinent of 1 Bowels Exam: General: awake and alert, no acute distress Eyes/N/T: EOMI Head/Neck: neck supple, CV: RRR, no murmurs Pulm: prolonged exp pharse, no wheezing, unlabored Abd: soft, +BS x4 Ext: no clubbing/cyanosis/edema Neuro: alert, moves all extremities to command, follows all commands, no focal deficits Skin: warm/dry Medical - PN: Obj Da - Labs CBC & Chem 7: 07/22/18 03:36 07/23/18 03:55 Labs: Abnormal Lab Results 07/23/18 07/22/18 07/22/18 03:55 03:36 03:36 RBC 4.26 L Hgb Hct 40.8 L Seg Neutrophils % 83 H Lymphocytes % 8 L Reactive Lymphocytes BUN 34 H 33 H Creatinine 2.0 H 2.0 H Glucose 126 H 137 H Phosphorus 2.5 L 4.8 H GGT 66 H AST 53 H ALT 47 H 58 H Lactate Dehydrogenase 331 H 312 H Total Protein 5.8 L Albumin 3.0 L Triglycerides 153 H Vitamin B12 07/21/18 07/21/18 07/21/18 14:12 07:30 07:30 RBC 4.13 L Hgb 13.4 L Hct 39.8 L Seg Neutrophils % Lymphocytes % Reactive Lymphocytes 4 H BUN 32 H Creatinine 1.8 H Glucose 129 H Phosphorus GGT AST 50 H ALT 46 H Lactate Dehydrogenase 325 H Total Protein 5.6 L Albumin 2.8 L Triglycerides 156 H Vitamin B12 > 2000 H Meds: Medications Acetaminophen (Tylenol) 650 mg PO Q6HP PRN PRN Reason: PAIN/FEVER > 101 Last Admin: 07/22/18 03:57 Dose: 650 mg Documented by: Albuterol/Ipratropium (Duoneb) 3 ml NEB Q4HP PRN PRN Reason: Bronchospasm Albuterol/Ipratropium (Duoneb) 3 ml NEB Q6HRT [facility] Last Admin: 07/23/18 00:59 Dose: 3 ml Documented by: Amlodipine Besylate (Norvasc) 10 mg PO DAILY [facility] Last Admin: 07/22/18 09:08 Dose: 10 mg Documented by: Chlorhexidine Gluconate (Peridex) 15 ml SWABMOUTH BID [facility] Last Admin: 07/22/18 22:24 Dose: Not Given Documented by: Clonidine HCl (Catapres) 0.1 mg PO QIDP PRN PRN Reason: SBP>150 Last Admin: 07/23/18 00:02 Dose: 0.1 mg Documented by: Dextrose (Dextrose 50%) 50 ml IV UD PRN PRN Reason: Hypoglycemia Diagnostic Test (Pha) (Accu-Chek) 1 each FS ACHS [facility] Last Admin: 07/22/18 21:26 Dose: 1 each Documented by: Diphenhydramine HCl (Benadryl) 50 mg PO [facility] Stop: 07/23/18 21:01 Last Admin: 07/22/18 21:19 Dose: 50 mg Documented by: Famotidine (Pepcid) 20 mg PO [facility] Last Admin: 07/22/18 21:19 Dose: 20 mg Documented by: Heparin Sodium (Porcine) (Heparin) 5,000 unit SQ Q12 [facility] Last Admin: 07/22/18 21:20 Dose: 5,000 unit Documented by: Hydralazine HCl (Apresoline) 0 mg IV Q2HP PRN PRN Reason: Hypertension Last Admin: 07/23/18 01:01 Dose: 20 mg Documented by: Piperacillin Sod/Tazobactam (Sod 2.25 gm/ Dextrose) 50 mls @ 100 mls/hr IV Q6H [facility] Last Infusion: 07/23/18 06:00 Dose: Infused Documented by: Potassium Chloride 40 meq/ (Dextrose) 520 mls @ 130 mls/hr IV UD PRN PRN Reason: K+ = or < 3.5 Last Infusion: 07/20/18 12:10 Dose: Infused Documented by: Dexmedetomidine HCl (Precedex 400 Mcg/100 Ml Dextrose) 400 mcg in 100 mls @ 3.105 mls/hr IV .Q24H [facility]; Protocol Last Admin: 07/23/18 03:00 Dose: Not Given Documented by: Thiamine HCl 100 mg/ Sodium (Chloride) 51 mls @ 50 mls/hr IV DAILY [facility] Stop: 07/24/18 10:02 Last Infusion: 07/22/18 10:10 Dose: Infused Documented by: Potassium Chloride 20 meq/ (Sodium Chloride) 1,010 mls @ 50 mls/hr IV Q20H [facility] Last Admin: 07/22/18 09:08 Dose: 50 mls/hr Documented by: Insulin Human Lispro (Humalog) 0 unit SQ ACHS [facility]; Protocol Last Admin: 07/22/18 21:30 Dose: 2 unit Documented by: Labetalol HCl (Trandate) 0 mg IV Q2HP PRN PRN Reason: htn Last Admin: 07/23/18 05:27 Dose: 10 mg Documented by: Loperamide HCl (Imodium) 2 mg PO PRN PRN PRN Reason: Diarrhea Last Admin: 07/20/18 14:47 Dose: 2 mg Documented by: Lorazepam (Ativan) 0 mg IV Q1HP PRN; Protocol PRN Reason: Alcohol Withdrawal Last Admin: 07/21/18 02:30 Dose: 3 mg Documented by: Methylprednisolone Sodium Succinate (Solu-Medrol) 20 mg IV Q12 [facility] Last Admin: 07/22/18 21:19 Dose: 20 mg Documented by: Metoprolol Succinate (Toprol Xl) 50 mg PO DAILY [facility] Last Admin: 07/22/18 09:08 Dose: 50 mg Documented by: Morphine Sulfate (Morphine) 1 - 2 mg IV Q2HP PRN PRN Reason: Agitation Last Admin: 07/22/18 23:27 Dose: 2 mg Documented by: Nicotine (Nicoderm) 21 mg TOPICAL DAILY@1000 [facility] Last Admin: 07/22/18 10:48 Dose: 21 mg Documented by: Olanzapine (Zyprexa) 5 mg PO HS [facility] Last Admin: 07/22/18 21:19 Dose: 5 mg Documented by: Olanzapine (Zyprexa) 5 mg PO Q6HP PRN PRN Reason: Agitation Ondansetron HCl (Zofran) 4 mg IV Q4HP PRN PRN Reason: Nausea And Vomiting Potassium Chloride (Potassium Chloride) 15 meq PT BIDCC [facility] Last Admin: 07/22/18 17:54 Dose: 15 meq Documented by: Sodium Chloride (Saline Flush) 10 ml IV Q8 [facility] Last Admin: 07/23/18 06:13 Dose: 10 ml Documented by: Medical - PN: A/P - Time Spent With Patient Total time spent is greater than 50% in coordination of care (as documented) at patient's floor/unit and/or counseling patient: - Narrative A/P Narrative: A: *Primary INFLUENZA A Pneumonia): improved *Acute hypoxic respiratory failure: 2/2 above -Intubated early on 07/15 & extubated 1/2 to bipap, tolerated NC/room air for several days but placed back on bipap yesterday -low PCT, nonproductive cough, afebrile -echo with normal EF, unable to assess diastolic fxn and pulmonary artery pressure -no on 2L oxymask -Improved *Lactic acidosis: 2/2 hypoxia, resolved *RADHA on likely CKD (unknown baseline, but suspect mid to high 1's): ATN from hypoxia -renal u/s with chronic dz b/l, no obstruction , stenosis of left renal aa -UOP improved -2.0<<<3.1<<1.4 *Likely COPD, with exacerbation: based on smoking history and CXR appearance *Encephalopathy (worse at night): ?suspected ETOH with withdrawal vs likely sleep deprivation compounded by underlying dementia + icu delerium -UDS neg -CT brain with small lacunar infarct left caudate (not acute), mild atrophy frontal lobes, and chronic ischemic changes. 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 -2/2 sleep deprivation + likely underlying dementia (vascular given CT findings) -improving *Sleep Deprivation: *Hypokalemia: resolved *Tobacco abuse: *HTN: has not been on any meds, uncontrolled *Has not seen a PCP in 20yrs *Oropharyngeal Dysphagia: P: -prn o2 support -Tamiflu course finished, Empiric abx stop -seen by Pulmonology -steroids weaned off -zyprexa prn -prn bp meds, cont norvasc, started toprol, ACEI not started 2/2 RADHA, attempt to avoid nonselective BB's given COPD, diuretic likely upon d/c -smoking cessation counseling -f/u with nephrology for CKD and Left renal aa stenosis -Diet per ST, -pharm to renally dose meds -pt/ot -ppx: heparin d/c planning to SNF Medical - PN: Qual - VTE Deep Vein Thrombosis/Pulmonary Embolism Present on Admission: No
[2018-07-23] MEDS ORDERED: predniSONE 20 MG TABLET PO SCH (08:00)
[2018-07-23] MEDS: INSULIN LISPRO 1 UNIT/0.01 ML UNIT SQ SCH ×4 (08:25→21:27)
[2018-07-23] MEDS: POTASSIUM CHLORIDE 20 MEQ in 0.45 % SODIUM CHLORIDE 1,000 ML IV SCH (08:25)
[2018-07-23] MEDS: amLODIPine 10 MG TABLET PO SCH (08:32)
[2018-07-23] MEDS: HEPARIN 5,000 UNIT/ML VIAL SQ SCH ×2 (08:32→21:27)
[2018-07-23] MEDS: POTASSIUM CHLORIDE 20 MEQ/15 ML ML PT SCH ×2 (08:32→17:08)
[2018-07-23] MEDS: CHLORHEXIDINE GLUCONATE 1 ML ORAL.SOL SWABMOUTH SCH ×2 (08:33→21:28)
[2018-07-23] MEDS: THIAMINE 100 MG in 0.9 % SODIUM CHLORIDE 50 ML IV SCH (08:33)
[2018-07-23] MEDS: NICOTINE 21 MG PATCH TOPICAL SCH ×2 (08:34→10:00)
[2018-07-23] MEDS ORDERED: METOPROLOL SUCCINATE 50 MG TAB.XL.24H PO SCH (09:00)
[2018-07-23] MEDS ORDERED: ACETAMINOPHEN 325 MG TABLET PO PRN (09:38)
[2018-07-23] MEDS ORDERED: POTASSIUM CHLORIDE 40 MEQ in DEXTROSE 5% IN WATER 500 ML IV PRN (09:38)
[2018-07-23] MEDS ORDERED: IPRATROPIUM/ALBUTEROL 3 ML AMPUL.NEB NEB PRN (09:38)
[2018-07-23] MEDS ORDERED: ONDANSETRON 4 MG/2 ML VIAL IV PRN (09:38)
[2018-07-23] MEDS ORDERED: LORazepam 2 MG/ML VIAL IV PRN (09:38)
[2018-07-23] MEDS ORDERED: OLANZapine 5 MG TABLET PO PRN (09:38)
[2018-07-23] MEDS ORDERED: LOPERAMIDE 2 MG CAPSULE PO PRN (09:38)
[2018-07-23] MEDS ORDERED: DEXTROSE 50% 50 ML VIAL IV PRN (09:38)
[2018-07-23] MEDS ORDERED: DEXMEDETOMIDINE HCL 400 MCG/100 ML BAG IV SCH (09:38)
[2018-07-23] MEDS ORDERED: diphenhydrAMINE 25 MG CAPSULE PO SCH (21:00)
[2018-07-23] MEDS ORDERED: FAMOTIDINE 20 MG TABLET PO SCH (21:00)
[2018-07-23] MEDS: OLANZapine 5 MG TABLET PO SCH (21:28)
[2018-07-24] MEDS ORDERED: POTASSIUM CHLORIDE 20 MEQ in 0.45 % SODIUM CHLORIDE 1,000 ML IV SCH
[2018-07-24] MEDS: IPRATROPIUM/ALBUTEROL 3 ML AMPUL.NEB NEB SCH ×4 (00:36→18:23)
[2018-07-24] MEDS: hydrALAZINE 20 MG/ML VIAL IV PRN ×2 (00:37→09:02)
[2018-07-24] MEDS: LABETALOL 5 MG/ML ML IV PRN (03:13)
[2018-07-24 05:40] LABS: Basophils # (Auto) 0 K/mcL (0.0-0.3); Basophils % (Auto) 0 % (0.0-2.0); Eosinophils # (Auto) 0 K/mcL (0.0-0.7); Eosinophils % (Auto) 0.1 % (0.0-7.0); Granulocytes % (Auto) 81.6 % (38.0-78.0); Lymphocytes # (Auto) 1.3 K/mcL (1.5-4.8); Mean Cell Volume 96.6 fL (80.0-100.0); Mean Corpuscular HGB Conc 33.1 g/dL (31.0-36.0); Monocytes # (Auto) 1.7 K/mcL (0.1-0.9); Monocytes % (Auto) 10.3 % (1.0-12.0); Platelet Count 371 K/mcL (140-440); RBC 4.25 M/mcL (4.50-5.90); Red Cell Distribution Width 13.7 % (11.5-14.5)
[2018-07-24 06:00] LABS: ALT/SGPT 39 U/l (0-40); Albumin 3.5 gm/dL (3.2-5.2); Albumin/Globulin Ratio 1.2 (1.0-2.3); Alkaline Phosphatase 48 U/L (39-117); Bilirubin,Direct < 0.2 mg/dL (0.0-0.3); Blood Urea Nitrogen 31 mg/dl (6-20); Gamma Glutamyl Transpeptidase 59 U/L (8-61); Uric Acid 5.4 mg/dL (2.5-8.0)
[2018-07-24] MEDS: INSULIN LISPRO 1 UNIT/0.01 ML UNIT SQ SCH ×4 (07:18→21:16)
[2018-07-24] MEDS: 0.9 % SODIUM CHLORIDE 10 ML SYRINGE IV SCH ×3 (07:44→21:02)
[2018-07-24] MEDS: POTASSIUM CHLORIDE 20 MEQ/15 ML ML PT SCH ×2 (07:44→17:17)
--- NOTE | 2018-07-24 08:37 | XRay Report ---
CLINICAL INFORMATION: shortness of breath COMPARISON: 07/20/2018 chest x-ray and chest CT from 07/15/2018 FINDINGS: Heart size, mediastinum and pulmonary vessels remain normal. The lung volumes are elevated with bronchial wall thickening compatible with known chronic bronchitis. (No bullae seen on recent 07/15/[address] suggest eliezer emphysema, however). The left basilar infiltrate, seen on x-ray of four days ago, has almost totally cleared with only minimal residual airspace disease. There is mild interstitial disease throughout both mid and lower lungs which has progressed. Pleural spaces are normal. IMPRESSION: 1. Chronic bronchitis. 2. Near complete interval resolution - left basilar infiltrate 3. Mild interstitial disease throughout both mid and lower lungs which has progressed. This likely represents edema or inflammation rather than interstitial fibrosis since this pattern is new from the chest CT done just two weeks ago. Interpreted and Authenticated by: Keagan Arzola 07/24/18
[2018-07-24] MEDS ORDERED: THIAMINE 100 MG in 0.9 % SODIUM CHLORIDE 50 ML IV SCH (09:00)
[2018-07-24] MEDS ORDERED: THIAMINE 100 MG TABLET PO SCH (09:00)
[2018-07-24] MEDS: amLODIPine 10 MG TABLET PO SCH (09:01)
[2018-07-24] MEDS: cloNIDine HCL 0.1 MG TABLET PO PRN (09:01)
[2018-07-24] MEDS: HEPARIN 5,000 UNIT/ML VIAL SQ SCH ×2 (09:02→21:02)
[2018-07-24] MEDS: METOPROLOL SUCCINATE 50 MG TAB.XL.24H PO SCH (09:02)
[2018-07-24] MEDS: CHLORHEXIDINE GLUCONATE 1 ML ORAL.SOL SWABMOUTH SCH ×2 (09:02→21:04)
[2018-07-24] MEDS ORDERED: FUROSEMIDE 40 MG/4 ML VIAL IV ONE (09:45)
[2018-07-24] MEDS: NICOTINE 21 MG PATCH TOPICAL SCH (09:54)
--- NOTE | 2018-07-24 11:31 | Internal Med Progress Note ---
Medical - PN: Subj Patient information: Note initiated : 07/24/18 at 11:29 am Service Date, if different from initiated Date: [] Patient: Breezy Barnard 58 y/o M admitted on 07/14/18 for Cough, body aches. Chief Complaint: [] Interval history: Mr. Barnard is a 58 year old M who presents with cough shortness of breath malaise for 3-4 days. He reports he is had a cough for about 3 days which she says is dry. He has b een around a relative that was sick, however, he denies any fevers or chills. Denies any myalgias does have worsening knee pain. That is a chronic injury and is chronic chronic back pain. He has shortness of breath both states that it actually is little bit better than it was a couple days ago. He says he had a hard time sleeping the past 3 nights that the main reason he came in. He denies having any shortness of breath when he lays flat on his back, no orthopnea. Denies any edema. Denies any history of heart or lung disease. States he is urinating just fine and that is of pale yellow. Last time he saw a primary care provider was he says 20 years ago. When he arrived in the ER his oxygen saturations were in the high 70s on room air. He did receive several breathing treatments which she says did help him but he still was quite tachypneic and using accessory muscles and was olivo bsequently put on BiPAP. Chest x-ray with some cephalization and [place] B line patient was given 40 of Lasix and put out 1000 in the Sr bag. I saw him in the ICU he had 400 additional cc in the bag. Also found to be hypertensive in the ED. He does not have any known medical conditions and does not take any home medications. 07/15 Patient can continued to become more more tachypneic last night until the need for intubation was seen. Currently sedated on the vent. No acute distress. Titrating down FiO2. Respiratory rate 20s-30. 07/16 Patient had increased urine output last night. Vent parameters improving. Sedated but awakens partially to voice and moves extremities. Good peak and plateau pressures and on compliance 48. Sedation vacation and weaning trial. 07/17 No issues overnight. Patient stable on the vent without sedation and comfortable. Awake on vent follows commands. Good vent parameters and performing weaning trial this morning. With likely extubation. 07/18 Intubated yesterday placed on BiPAP for most of the day and overnight. Patient seen by speech therapy and put on dysphagia diet. Patient was breakfast this morning and on nasal cannula and doing quite well. Denies any shortness of breath has occasional cough no other complaints. 07/19 Taken off oxygen this morning now on room air. Sitting up eating breakfast. Does have a cough he says he always has a cough does not really notice much shortness of breath. No events overnight other than not sleeping very well. 07/20 Patient significantly confused delirious and restless. She was score 14. On b enzodiazepines/antipsychotics. Persistent elevation blood pressure around 160. Will need outpatient follow-up with PCP. Potassium at 3 on oral iron replacement. No major telemetry events. 07/21-patient continues to be hypertensive and actively withdrawing with CIWAA scores in 20. Started on Precedex drip. Continue critical care management for high risk DT. Systolics has improved to 160 since. Continue IV thiamine. Consider neuroimaging if continues to worsen clinically more labored this mid morning and started back on bipap. 07/22 Off BiPAP to oxymask at 3 L this morning. Respiratory rate 20s. And saturations mid 90s. Following some commands. And weaning down Precedex. 07/23 Doing quite well this morning. Sitting up eating breakfast with dysphagia diet. He is on room air coherent and carrying a conversation on and I am unable to understand his verbalizations. When asked about alcohol intake he says he does drink moonshine only once a week. No other liquor/beer. Does have a cough nonproductive at this time. Denies shortness of breath. 07/24 Pt seen examined, was in bed, noted that he was short of breath in the morning, but better during rounds. able to hold a conversation, but speech is still slow. He is able to answer questions now, which looks like a improvement, patient unfortunately had shortness of breath this morning, blood pressure still uncontrolled and WBC count that trended up. Chest x-ray shows increased interstitial markings. Discontinue IV fluids given round of Lasix. I again tried to see how much he drinks and he denied any heavy use of alcohol. Pertinent ROS: Denies headache, dizziness Denies chest pain, palpitations Shortness of breath present, cough present Denies abdominal pain, nausea or vomiting. - Constitutional Vitals: Vital Signs Temp Pulse Resp BP Pulse Ox 97.9 F 85 32 H 161/105 92 07/24/18 08:00 07/24/18 08:00 07/24/18 08:00 07/24/18 08:00 07/24/18 08:00 Period Temp Pulse Resp BP Sys/Madrigal Pulse Ox Last 24 Hr 97.7 F-99.0 F 79-100 20-36 108-191/80-109 88-94 Intake and Output 07/23/18 07/24/18 07/24/18 21:59 05:59 13:59 Intake Total 560 / 1550 700 / 1550 Output Total 476 / 866 875 / 875 Balance 560 / 684 224 / 684 -875 / -875 Weight 133 lb Intake & Output: Intake & Output 07/23/18 07/24/18 07/24/18 21:59 05:59 13:59 Intake Total 560 / 1550 700 / 1550 Output Total 476 / 866 875 / 875 Balance 560 / 684 224 / 684 -875 / -875 Weight 133 lb Intake: Oral 560 / 1500 700 / 1500 Output: Void Amount 475 / 475 875 / 875 # of times incontinent of urine Other: Meal Dinner Breakfast Percent of Meal Consumed 100% 50% Feeding Ability Assist with Tray Set Up Urine Appearance Clear Clear Urine Color Pale Pale Urine Odor Normal Stool Size Copious Moderate Stool Color Brown Brown Stool Consistency Soft Soft Formed Formed # Voids 1 1 1 # Bowel Movements 2 1 Exam: Constitutional; Afebrile, cooperative, alert, not in distress. Eyes- No icterus, , No periorbital swelling Ears- Ext ear normal, hearing normal to conversation. Neck- Midline trachea, supple Respiratory system: Air Entry equal on both sides, no wheeze, mild inspiratory crackles noted at bases CVS- Rate rhythm regular, S1,S2 heard, no gallop, no rub. Abdomen- Soft nontender abdomen, no organomegaly, no tenderness, no guarding or rigidity, [employer]- AOOx2, moving all extremities, no gross focal deficit noted. Medical - PN: Obj Da - Labs CBC & Chem 7: 07/24/18 04:25 07/24/18 04:25 Labs: Abnormal Lab Results 07/24/18 07/24/18 07/23/18 04:25 04:25 03:55 WBC 16.9 H RBC 4.25 L Hct Gran % 81.6 H Lymph % (Auto) 8.0 L Gran # 13.8 H Lymph # (Auto) 1.3 L [place] # (Auto) 1.7 H Seg Neutrophils % Lymphocytes % BUN 31 H 34 H Creatinine 1.8 H 2.0 H Glucose 126 H Phosphorus 2.5 L GGT AST ALT 47 H Lactate Dehydrogenase 324 H 331 H Total Protein Albumin Triglycerides Vitamin B12 07/22/18 07/22/18 07/21/18 03:36 03:36 14:12 WBC RBC 4.26 L Hct 40.8 L Gran % Lymph % (Auto) Gran # Lymph # (Auto) [place] # (Auto) Seg Neutrophils % 83 H Lymphocytes % 8 L BUN 33 H Creatinine 2.0 H Glucose 137 H Phosphorus 4.8 H GGT 66 H AST 53 H ALT 58 H Lactate Dehydrogenase 312 H Total Protein 5.8 L Albumin 3.0 L Triglycerides 153 H Vitamin B12 > 2000 H Meds: Medications Acetaminophen (Tylenol) 650 mg PO Q6HP PRN PRN Reason: PAIN/FEVER > 101 Albuterol/Ipratropium (Duoneb) 3 ml NEB Q4HP PRN PRN Reason: Bronchospasm Albuterol/Ipratropium (Duoneb) 3 ml NEB Q6HRT COUNT INCLUDES THE [facility] Last Admin: 07/24/18 06:46 Dose: Not Given Documented by: Amlodipine Besylate (Norvasc) 10 mg PO DAILY COUNT INCLUDES THE [facility] Last Admin: 07/24/18 09:01 Dose: 10 mg Documented by: Chlorhexidine Gluconate (Peridex) 15 ml SWABMOUTH BID COUNT INCLUDES THE [facility] Last Admin: 07/24/18 09:02 Dose: 15 ml Documented by: Clonidine HCl (Catapres) 0.1 mg PO QIDP PRN PRN Reason: SBP>150 Last Admin: 07/24/18 09:01 Dose: 0.1 mg Documented by: Dextrose (Dextrose 50%) 50 ml IV UD PRN PRN Reason: Hypoglycemia Diagnostic Test (Pha) (Accu-Chek) 1 each FS ACHS COUNT INCLUDES THE [facility] Last Admin: 07/24/18 07:18 Dose: 1 each Documented by: Heparin Sodium (Porcine) (Heparin) 5,000 unit SQ Q12 COUNT INCLUDES THE [facility] Last Admin: 07/24/18 09:02 Dose: 5,000 unit Documented by: Potassium Chloride 40 meq/ (Dextrose) 520 mls @ 130 mls/hr IV UD PRN PRN Reason: K+ = or < 3.5 Insulin Human Lispro (Humalog) 0 unit SQ ACHS COUNT INCLUDES THE [facility]; Protocol Last Admin: 07/24/18 07:18 Dose: Not Given Documented by: Labetalol HCl (Trandate) 0 mg IV Q2HP PRN PRN Reason: htn Last Admin: 07/24/18 03:13 Dose: 20 mg Documented by: Loperamide HCl (Imodium) 2 mg PO PRN PRN PRN Reason: Diarrhea Last Admin: 07/24/18 03:13 Dose: 2 mg Documented by: Lorazepam (Ativan) 0 mg IV Q1HP PRN; Protocol PRN Reason: Alcohol Withdrawal Metoprolol Succinate (Toprol Xl) 100 mg PO DAILY COUNT INCLUDES THE [facility] Last Admin: 07/24/18 09:02 Dose: 100 mg Documented by: Multivit/Ca Carb/B Cmplx/FA/Prenat (Diatx) 1 tab PO DAILY COUNT INCLUDES THE [facility] Nicotine (Nicoderm) 21 mg TOPICAL DAILY@1000 COUNT INCLUDES THE [facility] Last Admin: 07/24/18 09:54 Dose: 21 mg Documented by: Olanzapine (Zyprexa) 5 mg PO Q6HP PRN PRN Reason: Agitation Olanzapine (Zyprexa) 5 mg PO HS COUNT INCLUDES THE [facility] Last Admin: 07/23/18 21:28 Dose: 5 mg Documented by: Ondansetron HCl (Zofran) 4 mg IV Q4HP PRN PRN Reason: Nausea And Vomiting Potassium Chloride (Potassium Chloride) 15 meq PT BIDCC COUNT INCLUDES THE [facility] Last Admin: 07/24/18 07:44 Dose: 15 meq Documented by: Sodium Chloride (Saline Flush) 10 ml IV Q8 COUNT INCLUDES THE [facility] Last Admin: 07/24/18 07:44 Dose: Not Given Documented by: Thiamine HCl (Vitamin B1) 100 mg PO DAILY COUNT INCLUDES THE [facility] Medical - PN: A/P - Time Spent With Patient Total time spent is greater than 50% in coordination of care (as documented) at patient's floor/unit and/or counseling patient: - Narrative A/P Narrative: A: *Primary INFLUENZA A Pneumonia): improving *Acute hypoxic respiratory failure: 2/2 above -Intubated early on 12/31 & extubated 1/2 to bipap, -low PCT, nonproductive cough, afebrile -echo with normal EF, unable to assess diastolic fxn and pulmonary artery pressure -now on oxygen supplement - slight worsenign today 07/24, likely fluid issue, IV lasix to be given. -seen by pulm *Lactic acidosis: 2/2 hypoxia, resolved *RADHA on likely CKD (unknown baseline, but suspect mid to high 1's): ATN from hypoxia -renal u/s with chronic dz b/l, no obstruction , stenosis of left renal aa -UOP stable -creat is 1.8 (07/24) -outpatient follow up. *Likely COPD, with exacerbation: based on smoking history and CXR appearance - on bronchodilator, no wheeze on exam *Encephalopathy (worse at night): ?suspected ETOH with withdrawal vs likely sleep deprivation compounded by underlying dementia + icu delerium -UDS neg -CT brain with small lacunar infarct left caudate (not acute), mild atrophy frontal lobes, and chronic ischemic changes. 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 -2/2 sleep deprivation + likely underlying dementia (vascular given CT findings) -improving slowly -continue thimaine supplementation *Sleep Deprivation: *Hypokalemia: resolved *Tobacco abuse: *HTN: has not been on any meds, uncontrolled *Has not seen a PCP in 20yrs *Oropharyngeal Dysphagia: P: -prn o2 support -Tamiflu course finished, Empiric abx stopped, -wbc trended up, will watch for now, -IV lasix today -zyprexa prn and qhs -prn bp meds, cont norvasc, started toprol, ACEI not started 2/2 RADHA, attempt to avoid nonselective BB's given COPD, diuretic likely upon d/c -smoking cessation counseling -Diet per ST, -pt/ot -ppx: heparin d/c planning to SNF once stable. Medical - PN: Qual - VTE Deep Vein Thrombosis/Pulmonary Embolism Present on Admission: No
[2018-07-24] MEDS: OLANZapine 5 MG TABLET PO SCH (21:02)
[2018-07-25] MEDS: cloNIDine HCL 0.1 MG TABLET PO PRN ×3 (00:14→23:49)
[2018-07-25] MEDS: IPRATROPIUM/ALBUTEROL 3 ML AMPUL.NEB NEB SCH ×5 (00:14→23:49)
[2018-07-25] MEDS ORDERED: LABETALOL HCL 20 MG/4 ML SYRINGE IV ONE (01:31)
[2018-07-25] MEDS: 0.9 % SODIUM CHLORIDE 10 ML SYRINGE IV SCH ×4 (02:00→20:37)
[2018-07-25] MEDS: LABETALOL 5 MG/ML ML IV PRN (02:00)
[2018-07-25 06:50] LABS: Basophils # (Auto) 0 K/mcL (0.0-0.3); Basophils % (Auto) 0 % (0.0-2.0); Eosinophils # (Auto) 0 K/mcL (0.0-0.7); Eosinophils % (Auto) 0.1 % (0.0-7.0); Granulocytes % (Auto) 85.6 % (38.0-78.0); Lymphocytes # (Auto) 0.9 K/mcL (1.5-4.8); Lymphocytes % (Auto) 5.3 % (15.5-49.0); Mean Cell Volume 96.8 fL (80.0-100.0); Mean Corpuscular HGB Conc 33.1 g/dL (31.0-36.0); Monocytes # (Auto) 1.5 K/mcL (0.1-0.9); Platelet Count 367 K/mcL (140-440); RBC 4.02 M/mcL (4.50-5.90); Red Cell Distribution Width 13.9 % (11.5-14.5)
[2018-07-25] MEDS: INSULIN LISPRO 1 UNIT/0.01 ML UNIT SQ SCH ×4 (07:08→20:38)
[2018-07-25 07:19] LABS: ALT/SGPT 30 U/l (0-40); Albumin 3.3 gm/dL (3.2-5.2); Albumin/Globulin Ratio 1.1 (1.0-2.3); Alkaline Phosphatase 47 U/L (39-117); Bilirubin,Direct < 0.2 mg/dL (0.0-0.3); Blood Urea Nitrogen 37 mg/dl (6-20); Gamma Glutamyl Transpeptidase 54 U/L (8-61); Uric Acid 6.4 mg/dL (2.5-8.0)
[2018-07-25] MEDS: POTASSIUM CHLORIDE 20 MEQ/15 ML ML PT SCH ×2 (08:56→17:02)
[2018-07-25] MEDS: amLODIPine 10 MG TABLET PO SCH (08:57)
[2018-07-25] MEDS: FOLIC ACID/VITAMIN B COMP W-C 1 TAB TABLET PO SCH (08:57)
[2018-07-25] MEDS: METOPROLOL SUCCINATE 50 MG TAB.XL.24H PO SCH (08:57)
[2018-07-25] MEDS: HEPARIN 5,000 UNIT/ML VIAL SQ SCH ×2 (08:57→20:36)
[2018-07-25] MEDS: THIAMINE 100 MG TABLET PO SCH (08:57)
[2018-07-25] MEDS: CHLORHEXIDINE GLUCONATE 1 ML ORAL.SOL SWABMOUTH SCH ×2 (08:58→20:38)
[2018-07-25] MEDS: hydrALAZINE 25 MG TABLET PO SCH ×3 (09:15→20:49)
[2018-07-25] MEDS: NICOTINE 21 MG PATCH TOPICAL SCH (09:58)
--- NOTE | 2018-07-25 09:59 | XRay Report ---
CLINICAL INFORMATION: hypoxia COMPARISON: 07/24/2018 FINDINGS: Cardiomediastinal silhouette and pulmonary vascular remain normal. Chronic bronchitis changes again noted. Moderate interstitial disease, diffusely throughout both lungs, continues to progress. Only minimal residual left basilar infiltrate noted. No effusions IMPRESSION: Moderate acute diffuse interstitial disease worsening considerably and not present on films two weeks prior. Differential diagnosis includes pulmonary edema, infection particularly viral, mycoplasma pneumonia and PCP, drug reaction and collagen-vascular diseases Interpreted and Authenticated by: Keagan Arzola 07/25/18
[2018-07-25] MEDS: PIPERACILLIN SODIUM/TAZOBACTAM 3.375 GM in DEXTROSE 5% IN WATER 50 ML IV SCH ×2 (12:06→20:48)
--- NOTE | 2018-07-25 12:52 | Cat Scan Report ---
CLINICAL INFORMATION: Centrilobular emphysema. Worsening hypoxia with diffuse interstitial disease developing on plain film over the past 10 day COMPARISON: Chest CT 07/15/2018 TECHNIQUE: 0.625 mm axial slices were obtained from the lung apices through the bases without intravenous contrast. 2.5 mm Sagittal, coronal and axial reformatted images were processed and reviewed at bone, lung and soft tissue windows. 7 mm axial MIP images were also reconstructed to optimize pulmonary nodule detection.The exam was performed using radiation dose optimization techniques including, but not limited to, automated exposure control, adjustment of the mA and/or kV according to patient size and use of iterative reconstruction technique. FINDINGS: Pulmonary parenchymal windows show moderate underlying centrilobular emphysema changes with a few scattered bullae within the upper lobes and chronic bronchitis featuring elevated lung volumes and wall thickening/dilatation of the bronchi. Since the previous CT, extensive tree-in-bud infiltrates have developed throughout the lower lobes and, to a lesser extent, scattered within the right middle and peripheral upper lobes. There are also smaller pleural-based regions of consolidation along both posterior lower lobes - more prominent on the left side which are new. Perimediastinal scarring in the lingular and right middle lobe region with associated cicitration bronchiectasis of the segmental and subsegmental bronchi are seen - as before. Mediastinal windows show the noncontrasted thoracic aorta and pulmonary artery are normal in contour and caliber. The noncontrast heart is normal in size and configuration. There is no adenopathy in the mediastinal hilar or axillary regions. Esophagus is grossly normal. The thyroid is normal. Bones and soft tissues of the chest wall are unremarkable. IMPRESSION: 1. Moderate centrilobular emphysema changes - predominantly chronic bronchitis with only a few bullae in the lung apices. 2. Extensive tree-in-bud airspace disease, predominantly within the posterior/inferior lower lobes, but also scattered throughout the remaining lower, right middle and both upper lobes. It is a new finding since chest CT 10 days ago. In the acute phase, the differential diagnosis, for this radiographic pattern, includes aspiration and, also, infectious bronchiolitis often with endobronchial spread. This can be due to an atypical organisms such as KRISTIN, TB, fungal, viral, ABPA or PCP. Consider: Formal swallowing function assessment to evaluate for aspiration Interpreted and Authenticated by: Keagan Arzola 07/25/18
--- NOTE | 2018-07-25 13:22 | Internal Med Progress Note ---
Medical - PN: Subj Patient information: Note initiated : 07/25/18 at 1:19 pm Service Date, if different from initiated Date: [] Patient: Breezy Barnard a 58 y/o M admitted on 07/14/18 for Cough, body aches. Chief Complaint: [] Interval history: Mr. Barnard is a 58 year old M who presents with cough shortness of breath malaise for 3-4 days. He reports he is had a cough for about 3 days which she says is dry. He has be en around a relative that was sick, however, he denies any fevers or chills. Denies any myalgias does have worsening knee pain. That is a chronic injury and is chronic chronic back pain. He has shortness of breath both states that it actually is little bit better than it was a couple days ago. He says he had a hard time sleeping the past 3 nights that the main reason he came in. He denies having any shortness of breath when he lays flat on his back, no orthopnea. Denies any edema. Denies any history of heart or lung disease. States he is urinating just fine and that is of pale yellow. Last time he saw a primary care provider was he says 20 years ago. When he arrived in the ER his oxygen saturations were in the high 70s on room air. He did receive several breathing treatments which she says did help him but he still was quite tachypneic and using accessory muscles and was sub sequently put on BiPAP. Chest x-ray with some cephalization and [place] B line patient was given 40 of Lasix and put out 1000 in the Sr bag. I saw him in the ICU he had 400 additional cc in the bag. Also found to be hypertensive in the ED. He does not have any known medical conditions and does not take any home medications. 07/15 Patient can continued to become more more tachypneic last night until the need for intubation was seen. Currently sedated on the vent. No acute distress. Titrating down FiO2. Respiratory rate 20s-30. 07/16 Patient had increased urine output last night. Vent parameters improving. Sedated but awakens partially to voice and moves extremities. Good peak and plateau pressures and on compliance 48. Sedation vacation and weaning trial. 07/17 No issues overnight. Patient stable on the vent without sedation and comfortable. Awake on vent follows commands. Good vent parameters and performing weaning trial this morning. With likely extubation. 07/18 Intubated yesterday placed on BiPAP for most of the day and overnight. Patient seen by speech therapy and put on dysphagia diet. Patient was breakfast this morning and on nasal cannula and doing quite well. Denies any shortness of breath has occasional cough no other complaints. 07/19 Taken off oxygen this morning now on room air. Sitting up eating breakfast. Does have a cough he says he always has a cough does not really notice much shortness of breath. No events overnight other than not sleeping very well. 07/20 Patient significantly confused delirious and restless. She was score 14. On be nzodiazepines/antipsychotics. Persistent elevation blood pressure around 160. Will need outpatient follow-up with PCP. Potassium at 3 on oral iron replacement. No major telemetry events. 07/21-patient continues to be hypertensive and actively withdrawing with CIWAA scores in 20. Started on Precedex drip. Continue critical care management for high risk DT. Systolics has improved to 160 since. Continue IV thiamine. Consider neuroimaging if continues to worsen clinically more labored this mid morning and started back on bipap. 07/22 Off BiPAP to oxymask at 3 L this morning. Respiratory rate 20s. And saturations mid 90s. Following some commands. And weaning down Precedex. 07/23 Doing quite well this morning. Sitting up eating breakfast with dysphagia diet. He is on room air coherent and carrying a conversation on and I am unable to understand his verbalizations. When asked about alcohol intake he says he does drink moonshine only once a week. No other liquor/beer. Does have a cough nonproductive at this time. Denies shortness of breath. 07/24 Pt seen examined, was in bed, noted that he was short of breath in the morning, but better during rounds. able to hold a conversation, but speech is still slow. He is able to answer questions now, which looks like a improvement, patient unfortunately had shortness of breath this morning, blood pressure still uncontrolled and WBC count that trended up. Chest x-ray shows increased interstitial markings. Discontinue IV fluids given round of Lasix. I again tried to see how much he drinks and he denied any heavy use of alcohol. 07/25 Patient seen and examined, no acute overnight events, labs stable, WBC elevated but stable. Creatinine is stable. Patient is still on oxygen supplementation, at 2 L. Chest x-ray done today sh ows slight worsening of pulmonary interstitial markings. CT chest done shows diffuse interstitial involvement. Likely aspiration. Patient is clinically improving, is able to ambulate well and feels better. Patient most likely has chemical pneumonitis however will cover with antibiotics Pertinent ROS: Denies headache, dizziness Denies chest pain, palpitations Denies cough or shortness of breath Denies abdominal pain, nausea or vomiting. - Constitutional Vitals: Vital Signs Temp Pulse Resp BP Pulse Ox 98.2 F 110 H 22 134/83 94 07/25/18 04:00 07/25/18 07:24 07/25/18 07:24 07/25/18 09:15 07/25/18 04:00 Period Temp Pulse Resp BP Sys/Madrigal Pulse Ox Last 24 Hr 96.7 F-98.6 F 77-110 16-36 134-179/83-105 90-97 Intake and Output 07/24/18 07/25/18 07/25/18 21:59 05:59 13:59 Intake Total 350 / 884 320 / 884 50 / 50 Output Total 100 / 975 Balance 350 / -91 220 / -91 50 / 50 Weight 126 lb 8 oz Intake & Output: Intake & Output 07/24/18 07/25/18 07/25/18 21:59 05:59 13:59 Intake Total 350 / 884 320 / 884 50 / 50 Output Total 100 / 975 Balance 350 / -91 220 / -91 50 / 50 Weight 126 lb 8 oz Intake: IV 50 / 50 Zosyn 3.375 gm In Dextrose 5% 50 / 50 in Water 50 ml @ 100 mls/hr IV Q8H [facility] Rx#:[id number] Oral 350 / 670 320 / 670 Output: Void Amount 100 / 975 Other: # Voids 1 1 Exam: Constitutional; Afebrile, cooperative, alert, not in distress. garbled speech, slow but we can understand what he is trying to say. Eyes- No icterus, , No periorbital swelling Ears- Ext ear normal, hearing normal to conversation. Neck- Midline trachea, supple Respiratory system: Air Entry equal on both sides, No crackles or wheezing, no rhonchi. CVS- Rate rhythm regular, S1,S2 heard, no gallop, no rub. Abdomen- Soft nontender abdomen, no organomegaly, no tenderness, no guarding or rigidity, [employer] HAND- AOOx2, moving all extremities, no gross focal deficit noted. Medical - PN: Obj Da - Labs CBC & Chem 7: 07/25/18 04:15 07/25/18 04:15 Labs: Abnormal Lab Results 07/25/18 07/25/18 07/24/18 04:15 04:15 04:25 WBC 16.5 H RBC 4.02 L Hgb 12.9 L Hct 38.9 L Gran % 85.6 H Lymph % (Auto) 5.3 L Gran # 14.1 H Lymph # (Auto) 0.9 L Bradford # (Auto) 1.5 H BUN 37 H 31 H Creatinine 1.9 H 1.8 H Glucose Phosphorus ALT Lactate Dehydrogenase 299 H 324 H 07/24/18 07/23/18 04:25 03:55 WBC 16.9 H RBC 4.25 L Hgb Hct Gran % 81.6 H Lymph % (Auto) 8.0 L Gran # 13.8 H Lymph # (Auto) 1.3 L Bradford # (Auto) 1.7 H BUN 34 H Creatinine 2.0 H Glucose 126 H Phosphorus 2.5 L ALT 47 H Lactate Dehydrogenase 331 H Meds: Medications Acetaminophen (Tylenol) 650 mg PO Q6HP PRN PRN Reason: PAIN/FEVER > 101 Albuterol/Ipratropium (Duoneb) 3 ml NEB Q4HP PRN PRN Reason: Bronchospasm Albuterol/Ipratropium (Duoneb) 3 ml NEB Q6HRT [facility] Last Admin: 07/25/18 06:59 Dose: 3 ml Documented by: Amlodipine Besylate (Norvasc) 10 mg PO DAILY [facility] Last Admin: 07/25/18 08:57 Dose: 10 mg Documented by: Chlorhexidine Gluconate (Peridex) 15 ml SWABMOUTH BID [facility] Last Admin: 07/25/18 08:58 Dose: 15 ml Documented by: Clonidine HCl (Catapres) 0.1 mg PO QIDP PRN PRN Reason: SBP>150 Last Admin: 07/25/18 07:06 Dose: 0.1 mg Documented by: Dextrose (Dextrose 50%) 50 ml IV UD PRN PRN Reason: Hypoglycemia Diagnostic Test (Pha) (Accu-Chek) 1 each FS ACHS [facility] Last Admin: 07/25/18 11:42 Dose: 1 each Documented by: Heparin Sodium (Porcine) (Heparin) 5,000 unit SQ Q12 [facility] Last Admin: 07/25/18 08:57 Dose: 5,000 unit Documented by: Hydralazine HCl (Apresoline) 25 mg PO TID [facility] Last Admin: 07/25/18 09:15 Dose: Not Given Documented by: Potassium Chloride 40 meq/ (Dextrose) 520 mls @ 130 mls/hr IV UD PRN PRN Reason: K+ = or < 3.5 Piperacillin Sod/Tazobactam (Sod 3.375 gm/ Dextrose) 50 mls @ 100 mls/hr IV Q8H [facility] Last Infusion: 07/25/18 12:42 Dose: Infused Documented by: Insulin Human Lispro (Humalog) 0 unit SQ [facility]; Protocol Last Admin: 07/25/18 11:42 Dose: Not Given Documented by: Labetalol HCl (Trandate) 0 mg IV Q2HP PRN PRN Reason: htn Last Admin: 07/25/18 02:00 Dose: 10 mg Documented by: Loperamide HCl (Imodium) 2 mg PO PRN PRN PRN Reason: Diarrhea Last Admin: 07/24/18 03:13 Dose: 2 mg Documented by: Lorazepam (Ativan) 0 mg IV Q1HP PRN; Protocol PRN Reason: Alcohol Withdrawal Metoprolol Succinate (Toprol Xl) 100 mg PO DAILY [facility] Last Admin: 07/25/18 08:57 Dose: 100 mg Documented by: Multivit/Ca Carb/B Cmplx/FA/Prenat (Diatx) 1 tab PO DAILY [facility] Last Admin: 07/25/18 08:57 Dose: 1 tab Documented by: Nicotine (Nicoderm) 21 mg TOPICAL DAILY@1000 [facility] Last Admin: 07/25/18 09:58 Dose: 21 mg Documented by: Olanzapine (Zyprexa) 5 mg PO Q6HP PRN PRN Reason: Agitation Olanzapine (Zyprexa) 5 mg PO HS [facility] Last Admin: 07/24/18 21:02 Dose: 5 mg Documented by: Ondansetron HCl (Zofran) 4 mg IV Q4HP PRN PRN Reason: Nausea And Vomiting Potassium Chloride (Potassium Chloride) 15 meq PT BIDCC [facility] Last Admin: 07/25/18 08:56 Dose: 15 meq Documented by: Sodium Chloride (Saline Flush) 10 ml IV Q8 [facility] Last Admin: 07/25/18 05:13 Dose: Not Given Documented by: Thiamine HCl (Vitamin B1) 100 mg PO DAILY [facility] Last Admin: 07/25/18 08:57 Dose: 100 mg Documented by: Medical - PN: A/P - Time Spent With Patient Total time spent is greater than 50% in coordination of care (as documented) at patient's floor/unit and/or counseling patient: - Narrative A/P Narrative: A: *Primary INFLUENZA A Pneumonia): improving *Aspiration Pneumonitis -Likely chemical pneumonitis, pt clinically improving -but given will be going to snf, and has been in the hospital, will cover with zosyn for now, switch to augmentin at d/c *Acute hypoxic respiratory failure: 2/2 above -Intubated early on 07/15 & extubated 1/2 to bipap, -low PCT, nonproductive cough, afebrile -echo with normal EF, unable to assess diastolic fxn and pulmonary artery pressure -now on oxygen supplement - stable now. -seen by pulm *Lactic acidosis: 2/2 hypoxia, resolved *RADHA on likely CKD (unknown baseline, but suspect mid to high 1's): ATN from hypoxia -renal u/s with chronic dz b/l, no obstruction , stenosis of left renal aa -UOP stable -creat is 1.8 (07/24) -outpatient follow up. *Likely COPD, with exacerbation: based on smoking history and CXR appearance - on bronchodilator, no wheeze on exam *Encephalopathy (worse at night): ?suspected ETOH with withdrawal vs likely sleep deprivation compounded by underlying dementia + icu delerium -UDS neg -CT brain with small lacunar infarct left caudate (not acute), mild atrophy frontal lobes, and chronic ischemic changes. 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 -2/2 sleep deprivation + likely underlying dementia (vascular given CT findings) -improving slowly -continue thiamine supplementation *Sleep Deprivation: *Hypokalemia: resolved *Tobacco abuse: *HTN: *Has not seen a PCP in 20yrs *Oropharyngeal Dysphagia: P: -prn o2 support -Tamiflu course finished, -wbc trended up, will watch for now, likely from aspiration pneumonitis -IV zosyn for now -start pt on hydralazine 25 tid, continue with norvasc and metoprolol -zyprexa prn and qhs -smoking cessation counseling -Diet per ST, -pt/ot -ppx: heparin d/c planning to SNF once stable. Medical - PN: Qual - VTE Deep Vein Thrombosis/Pulmonary Embolism Present on Admission: No
[2018-07-25] MEDS: OLANZapine 5 MG TABLET PO SCH (20:37)
[2018-07-26] MEDS: LABETALOL 5 MG/ML ML IV PRN (04:02)
[2018-07-26] MEDS ORDERED: ASPIRIN 81 MG TAB.CHEW CHEWED ONE (05:08)
[2018-07-26 05:16] LABS: Basophils # (Auto) 0 K/mcL (0.0-0.3); Basophils % (Auto) 0.1 % (0.0-2.0); Eosinophils # (Auto) 0.1 K/mcL (0.0-0.7); Eosinophils % (Auto) 0.3 % (0.0-7.0); Granulocytes % (Auto) 83.1 % (38.0-78.0); Lymphocytes % (Auto) 5.7 % (15.5-49.0); Mean Cell Volume 95.6 fL (80.0-100.0); Mean Corpuscular HGB Conc 33.2 g/dL (31.0-36.0); Monocytes # (Auto) 1.8 K/mcL (0.1-0.9); Monocytes % (Auto) 10.8 % (1.0-12.0); Platelet Count 378 K/mcL (140-440); RBC 4.06 M/mcL (4.50-5.90); Red Cell Distribution Width 14.2 % (11.5-14.5)
--- NOTE | 2018-07-26 05:21 | Cat Scan Report ---
CLINICAL INFORMATION: Acute weakness - code stroke COMPARISON: 07/21/2018 TECHNIQUE: 2.5 mm helical slices were obtained in the skull base to vertex. Following reconstruction, axial reformatted images were reviewed at bone and parenchymal windows. The exam was performed using radiation dose optimization techniques including, but not limited to, automated exposure control, adjustment of the mA and/or kV according to patient size and use of iterative reconstruction technique. FINDINGS: The ventricles, sulci, fissures, and cisterns are minimally enlarged compatible with mild age-related atrophy. No extra-axial fluid collections are identified. Minimal chronic ischemic changes in the deep cerebral white matter noted, more prominent in the frontal lobes, are stable. 4 mm lacunar infarct left caudate nucleus is again noted. There is no intracerebral hemorrhage, mass effect, edema or other acute finding. Bone windows show no osseous abnormality. IMPRESSION: Minimal atrophy and chronic ischemic changes in the cerebral white matter expected for age - stable. 4 mm lacunar infarct in the left caudate nucleus. No intracerebral hemorrhage, edema or other acute finding Interpreted and Authenticated by: Keagan Arzola 07/26/18
--- NOTE | 2018-07-26 05:37 | Event Note ---
Called by the nursing to evaluate, change in patient status. Patient was last seen ok around 23.30, when he was noted to be belligernt and trying to get out of bed, he was given one dose of zyprexa 5mg, (he has a scheduled dose at bed time) Pt subsequently has been moaning and groaning, around 3. 30 vitals check, pt was lethargic and only had some grimacing. and 15 mins later during lab draw pt did not respond to lab draw The patient was intermittently responsive, and had unequal pupils, I was therefore notified about change in status. On my evaluation, pt was drowsy, had mild tremors, generalized, eyes were rolled up, he initially did not respond to my commands, then opned his eyes, right pupils was 4mm, right 2mm, both reactive to light, Pt was aoox (knows name/ place ) 2 unchanged from baseline. , no facial weakness noted, he is overall weak, but there was no focal weakness, no loss of sensation. Pt did seem quite drowsy Glucose 160, Pt was afebrile, bp 168/107 HR 72, rr 20, Osat 91 in room air chest clear to auscultation CVS sinus rhythm, no gross murmurs soft abdomen ABG 7.50/ pco2 36, Po2 [address] neg CXR neg EKG sinus rhythm, poor baseline. Later during subsequent evaluation, pt was again noted to be unresponsive, but after a strong stimulus woke up and started following commands again. A/P AMS h/o AMS in pm it seems, wakes up with painful stimulus and mentation seems ok no focal exam neurological exam (except unequal pupils) given that pt is on heparin, not a candidate for tpa too, hence stroke neurology not consulted. Creat is 1.9 hence angiogram not ordered. Will get MR head in AM for further evaluation (unable to explain pupil asymmetry) .
[2018-07-26 05:38] LABS: Blood Urea Nitrogen 42 mg/dl (6-20)
[2018-07-26] MEDS: 0.9 % SODIUM CHLORIDE 10 ML SYRINGE IV SCH ×3 (05:41→22:28)
[2018-07-26] MEDS: PIPERACILLIN SODIUM/TAZOBACTAM 3.375 GM in DEXTROSE 5% IN WATER 50 ML IV SCH ×3 (05:41→22:30)
--- NOTE | 2018-07-26 05:46 | XRay Report ---
CLINICAL INFORMATION: altered mental status COMPARISON: Multiple plain films dating back to 10/23/[address] performed yesterday 07/25/2018 FINDINGS: Cardiomediastinal silhouette and pulmonary vessels are normal for technique. Moderate underlying centrilobular emphysema is acknowledged. Moderate interstitial disease throughout both lungs, predominantly the mid and lower lung lamb, has progressed from yesterday. Small focal infiltrate in the left lower lobe is new. No effusions IMPRESSION: Moderate acute diffuse interstitial disease progressing from yesterday. This is likely infection or inflammation Interpreted and Authenticated by: Keagan Arzola 07/26/18
[2018-07-26] MEDS: IPRATROPIUM/ALBUTEROL 3 ML AMPUL.NEB NEB SCH ×3 (07:30→19:10)
[2018-07-26] MEDS: THIAMINE 100 MG TABLET PO SCH (08:20)
[2018-07-26] MEDS: POTASSIUM CHLORIDE 20 MEQ/15 ML ML PT SCH ×2 (08:20→16:18)
[2018-07-26] MEDS: INSULIN LISPRO 1 UNIT/0.01 ML UNIT SQ SCH ×4 (08:20→20:18)
[2018-07-26] MEDS: FOLIC ACID/VITAMIN B COMP W-C 1 TAB TABLET PO SCH (08:20)
[2018-07-26] MEDS: METOPROLOL SUCCINATE 50 MG TAB.XL.24H PO SCH (08:20)
[2018-07-26] MEDS: HEPARIN 5,000 UNIT/ML VIAL SQ SCH ×2 (08:20→20:11)
[2018-07-26] MEDS: CHLORHEXIDINE GLUCONATE 1 ML ORAL.SOL SWABMOUTH SCH ×2 (08:21→22:27)
[2018-07-26] MEDS: amLODIPine 10 MG TABLET PO SCH (08:21)
[2018-07-26] MEDS: hydrALAZINE 25 MG TABLET PO SCH ×3 (08:21→20:11)
--- NOTE | 2018-07-26 09:10 | Magnetic Resonance Report ---
CLINICAL INFORMATION: Slurred speech and tremors COMPARISON: Head CT 07/26/2018 TECHNIQUE:Sagittal T1 FLAIR, axial T1 FLAIR, T2 FLAIR propeller, T2 propeller, gradient, diffusion, ADC and coronal T2 weighted images were acquired. FINDINGS: The ventricles, sulci, fissures and cisterns are symmetrically enlarged compatible with mild atrophy - more than expected for age. There are no extra-axial fluid collections or masses appreciated. There are multiple high signal foci within the deep cerebral and subcortical white matter (greater than 20 in number) ranging between 2 mm and 5 mm. Some of the deep cerebral white matter lesions have a perpendicular orientation to the lateral ventricles reminiscent of Sanchez's fingers seen in [place]. In addition, there is a cluster seven-day high signal foci in the central sia ranging between five and 3 mm. There is also a 13 mm high signal focus in the right middle cerebellar peduncle. All the lesions are isointense on T1 and increased signal on T2/FLAIR. Two of the lesions in the right frontal lobe (six and 4 mm respectively (, near vertex, show evidence of restricted diffusion. The signal void in the intracerebral arteries, extra-axial cranial nerves, pituitary, orbits and cranial sinus are all clear. IMPRESSION: Multiple high signal foci in the subcortical and deep cerebral white matter with a few punctate lesions in the central sia and the right middle cerebellar peduncle. Two of the lesions, in the right subcortical frontal white matter, near vertex, show evidence of restricted diffusion indicating either active MS inflammation or acute nonhemorrhagic lacunar infarcts. While these likely represent chronic ischemic foci from senescent (or other etiology) small vessel disease, the number of these lesions is more than is typically seen in this age group. In addition, several lesions have a distribution compatible with diagnosis of multiple sclerosis. Consider lumbar puncture for total protein and oligoclonal immunoglobulin G bands. Other than senescent related ischemia, other small vessel pathologies include: vasculitis caused by collagen vascular diseases such as lupus or polyarteritis nodosa, illicit drug use particular sympathomimetics such as amphetamines cocaine etc., diabetic arteriosclerosis and fibromuscular dysplasia Interpreted and Authenticated by: Keagan Arzola 07/26/18
[2018-07-26] MEDS: NICOTINE 21 MG PATCH TOPICAL SCH (10:28)
[2018-07-26] MEDS ORDERED: ONDANSETRON 4 MG/2 ML VIAL IV PRN (10:43)
[2018-07-26] MEDS ORDERED: IPRATROPIUM/ALBUTEROL 3 ML AMPUL.NEB NEB PRN (10:43)
[2018-07-26] MEDS ORDERED: OLANZapine 5 MG TABLET PO PRN (10:43)
[2018-07-26] MEDS ORDERED: POTASSIUM CHLORIDE 40 MEQ in DEXTROSE 5% IN WATER 500 ML IV PRN (10:43)
[2018-07-26] MEDS ORDERED: DEXTROSE 50% 50 ML VIAL IV PRN (10:43)
[2018-07-26] MEDS ORDERED: LOPERAMIDE 2 MG CAPSULE PO PRN (10:43)
--- NOTE | 2018-07-26 10:53 | Internal Med Progress Note ---
Medical - PN: Subj Patient information: Note initiated : 07/26/18 at 10:51 am Service Date, if different from initiated Date: [] Patient: Breezy Barnard 58 y/o M admitted on 07/14/18 for Cough, body aches. Chief Complaint: [] Interval history: Mr. Barnard is a 58 year old M who presents with cough shortness of breath malaise for 3-4 days. He reports he is had a cough for about 3 days which she says is dry. He has b een around a relative that was sick, however, he denies any fevers or chills. Denies any myalgias does have worsening knee pain. That is a chronic injury and is chronic chronic back pain. He has shortness of breath both states that it actually is little bit better than it was a couple days ago. He says he had a hard time sleeping the past 3 nights that the main reason he came in. He denies having any shortness of breath when he lays flat on his back, no orthopnea. Denies any edema. Denies any history of heart or lung disease. States he is urinating just fine and that is of pale yellow. Last time he saw a primary care provider was he says 20 years ago. When he arrived in the ER his oxygen saturations were in the high 70s on room air. He did receive several breathing treatments which she says did help him but he still was quite tachypneic and using accessory muscles and was olivo bsequently put on BiPAP. Chest x-ray with some cephalization and [place] B line patient was given 40 of Lasix and put out 1000 in the Sr bag. I saw him in the ICU he had 400 additional cc in the bag. Also found to be hypertensive in the ED. He does not have any known medical conditions and does not take any home medications. 07/15 Patient can continued to become more more tachypneic last night until the need for intubation was seen. Currently sedated on the vent. No acute distress. Titrating down FiO2. Respiratory rate 20s-30. 07/16 Patient had increased urine output last night. Vent parameters improving. Sedated but awakens partially to voice and moves extremities. Good peak and plateau pressures and on compliance 48. Sedation vacation and weaning trial. 07/17 No issues overnight. Patient stable on the vent without sedation and comfortable. Awake on vent follows commands. Good vent parameters and performing weaning trial this morning. With likely extubation. 07/18 Intubated yesterday placed on BiPAP for most of the day and overnight. Patient seen by speech therapy and put on dysphagia diet. Patient was breakfast this morning and on nasal cannula and doing quite well. Denies any shortness of breath has occasional cough no other complaints. 07/19 Taken off oxygen this morning now on room air. Sitting up eating breakfast. Does have a cough he says he always has a cough does not really notice much shortness of breath. No events overnight other than not sleeping very well. 07/20 Patient significantly confused delirious and restless. She was score 14. On b enzodiazepines/antipsychotics. Persistent elevation blood pressure around 160. Will need outpatient follow-up with PCP. Potassium at 3 on oral iron replacement. No major telemetry events. 07/21-patient continues to be hypertensive and actively withdrawing with CIWAA scores in 20. Started on Precedex drip. Continue critical care management for high risk DT. Systolics has improved to 160 since. Continue IV thiamine. Consider neuroimaging if continues to worsen clinically more labored this mid morning and started back on bipap. 07/22 Off BiPAP to oxymask at 3 L this morning. Respiratory rate 20s. And saturations mid 90s. Following some commands. And weaning down Precedex. 07/23 Doing quite well this morning. Sitting up eating breakfast with dysphagia diet. He is on room air coherent and carrying a conversation on and I am unable to understand his verbalizations. When asked about alcohol intake he says he does drink moonshine only once a week. No other liquor/beer. Does have a cough nonproductive at this time. Denies shortness of breath. 07/24 Pt seen examined, was in bed, noted that he was short of breath in the morning, but better during rounds. able to hold a conversation, but speech is still slow. He is able to answer questions now, which looks like a improvement, patient unfortunately had shortness of breath this morning, blood pressure still uncontrolled and WBC count that trended up. Chest x-ray shows increased interstitial markings. Discontinue IV fluids given round of Lasix. I again tried to see how much he drinks and he denied any heavy use of alcohol. 07/25 Patient seen and examined, no acute overnight events, labs stable, WBC elevated but stable. Creatinine is stable. Patient is still on oxygen supplementation, at 2 L. Chest x-ray done today s hows slight worsening of pulmonary interstitial markings. CT chest done shows diffuse interstitial involvement. Likely aspiration. Patient is clinically improving, is able to ambulate well and feels better. Patient most likely has chemical pneumonitis however will cover with antibiotics 07/26 Pt seen examined, during change in status earlyi n AM and also during rounds See event note for details THis AM pt seems more back to baseline status, upset, and verbal in his communications Pupils remain unequal, but otherwise non focal exam MRI head shows multiple lesiions, some acute, some chronic, a wide differential provided. will initiate basic workup, likely the patient has lacunar infarcts. check lipid panel, tsh, a1c, start pt on aSA, and statin, get carotid USG Will refer to neurology as outpatient for further evaluation. WBC count is still elevated by stable. Pertinent ROS: Denies headache, dizziness Denies chest pain, palpitations Denies cough or shortness of breath Denies abdominal pain, nausea or vomiting. Additional PMFSH (Level 3 Only): Medical History Laceration of palm without complication (Acute) Nausea, vomiting and diarrhea (Acute) Headache (Acute) - Constitutional Vitals: Vital Signs Temp Pulse Resp BP Pulse Ox 99.0 F 83 24 H 161/68 93 07/26/18 07:18 07/26/18 07:18 07/26/18 07:18 07/26/18 07:18 07/26/18 07:18 Period Temp Pulse Resp BP Sys/Madrigal Pulse Ox Last 24 Hr 97.1 F-99.0 F 72-87 16-34 138-184/68-108 92-95 Intake and Output 07/25/18 07/26/18 07/26/18 21:59 05:59 13:59 Intake Total 150 / 500 300 / 500 50 / 50 Output Total 101 / 101 50 / 50 Balance 150 / 399 199 / 399 0 / 0 Weight 123 lb 8 oz Intake & Output: Intake & Output 07/25/18 07/26/18 07/26/18 21:59 05:59 13:59 Intake Total 150 / 500 300 / 500 50 / 50 Output Total 101 / 101 50 / 50 Balance 150 / 399 199 / 399 0 / 0 Weight 123 lb 8 oz Intake: IV 50 / 100 50 / 50 Zosyn 3.375 gm In Dextrose 5% 50 / 100 50 / 50 in Water 50 ml @ 100 mls/hr IV Q8H [facility] Rx#:[id number] Oral 100 / 400 300 / 400 Output: Void Amount 100 / 100 50 / 50 # of times incontinent of urine Other: # Voids 1 Exam: Constitutional; Afebrile, cooperative, alert, not in distress. Respiratory system: Air Entry equal on both sides, mild crackles at bases. CVS- Rate rhythm regular, S1,S2 heard, no gallop, no rub. Abdomen- Soft nontender abdomen, no organomegaly, no tenderness, no guarding or rigidity, [employer]- AOOx2, moving all extremities, no gross focal deficit noted. pupils unequal, right > left, reactive to light. Medical - PN: Obj Da - Labs CBC & Chem 7: 07/26/18 04:44 07/26/18 04:45 Labs: Abnormal Lab Results 07/26/18 07/26/18 07/26/18 04:50 04:45 04:44 WBC 17.1 H RBC 4.06 L Hgb 12.9 L Hct 38.9 L Gran % 83.1 H Lymph % (Auto) 5.7 L Gran # 14.2 H Lymph # (Auto) 1.0 L [place] # (Auto) 1.8 H BUN 42 H Creatinine 1.9 H Glucose 111 H Lactate Dehydrogenase Prolactin 17.5 H 07/25/18 07/25/18 07/24/18 04:15 04:15 04:25 WBC 16.5 H RBC 4.02 L Hgb 12.9 L Hct 38.9 L Gran % 85.6 H Lymph % (Auto) 5.3 L Gran # 14.1 H Lymph # (Auto) 0.9 L [place] # (Auto) 1.5 H BUN 37 H 31 H Creatinine 1.9 H 1.8 H Glucose Lactate Dehydrogenase 299 H 324 H Prolactin 07/24/18 04:25 WBC 16.9 H RBC 4.25 L Hgb Hct Gran % 81.6 H Lymph % (Auto) 8.0 L Gran # 13.8 H Lymph # (Auto) 1.3 L [place] # (Auto) 1.7 H BUN Creatinine Glucose Lactate Dehydrogenase Prolactin Meds: Medications Acetaminophen (Tylenol) 650 mg PO Q6HP PRN PRN Reason: PAIN/FEVER > 101 Albuterol/Ipratropium (Duoneb) 3 ml NEB Q4HP PRN PRN Reason: Bronchospasm Albuterol/Ipratropium (Duoneb) 3 ml NEB Q6HRT [facility] Amlodipine Besylate (Norvasc) 10 mg PO DAILY [facility] Aspirin (Aspirin) 81 mg PO DAILY [facility] Atorvastatin Calcium (Lipitor) 40 mg PO HS [facility] Chlorhexidine Gluconate (Peridex) 15 ml SWABMOUTH BID [facility] Dextrose (Dextrose 50%) 50 ml IV UD PRN PRN Reason: Hypoglycemia Diagnostic Test (Pha) (Accu-Chek) 1 each FS ACHS [facility] Heparin Sodium (Porcine) (Heparin) 5,000 unit SQ Q12 [facility] Hydralazine HCl (Apresoline) 50 mg PO TID [facility] Potassium Chloride 40 meq/ (Dextrose) 520 mls @ 130 mls/hr IV UD PRN PRN Reason: K+ = or < 3.5 Piperacillin Sod/Tazobactam (Sod 3.375 gm/ Dextrose) 50 mls @ 100 mls/hr IV Q8H [facility] Insulin Human Lispro (Humalog) 0 unit SQ ACHS [facility]; Protocol Loperamide HCl (Imodium) 2 mg PO PRN PRN PRN Reason: Diarrhea Metoprolol Succinate (Toprol Xl) 100 mg PO DAILY [facility] Multivit/Ca Carb/B Cmplx/FA/Prenat (Diatx) 1 tab PO DAILY [facility] Nicotine (Nicoderm) 21 mg TOPICAL DAILY@1000 [facility] Olanzapine (Zyprexa) 5 mg PO Q6HP PRN PRN Reason: Agitation Olanzapine (Zyprexa) 5 mg PO HS [facility] Ondansetron HCl (Zofran) 4 mg IV Q4HP PRN PRN Reason: Nausea And Vomiting Potassium Chloride (Potassium Chloride) 15 meq PT BIDCC [facility] Sodium Chloride (Saline Flush) 10 ml IV Q8 [facility] Thiamine HCl (Vitamin B1) 100 mg PO DAILY [facility] Medical - PN: A/P - Time Spent With Patient Total time spent is greater than 50% in coordination of care (as documented) at patient's floor/unit and/or counseling patient: - Narrative A/P Narrative: A: Lacunar infarcts/Microvascular disease -Varied etiology, given pt risk factors, likely vascular in nature, -check carotid usg -start on asa and statin -check ldl, a1c, tsh -check esr and crp -outpatient Neurology referral for further evaluation -age of lesions not sure, within 7 days? could explain some dysphagia, /pupil inequality Primary INFLUENZA A Pneumonia) -resolved, s/p treatment Aspiration Pneumonitis -Likely chemical pneumonitis, pt clinically improving -but given will be going to snf, and has been in the hospital, will cover with zosyn for now, switch to augmentin at d/c Acute hypoxic respiratory failure: 2/2 above -Intubated early on 07/15 & extubated 1/2 to bipap, -low PCT, nonproductive cough, afebrile -echo with normal EF, unable to assess diastolic fxn and pulmonary artery pressure -now on oxygen supplement - stable now. -seen by pulm Lactic acidosis: 2/2 hypoxia, resolved RADHA on likely CKD (unknown baseline, but suspect mid to high 1's): ATN from hypoxia -renal u/s with chronic dz b/l, no obstruction , stenosis of left renal aa -UOP stable -creat is 1.8 (07/26) -outpatient follow up. Likely COPD, with exacerbation: based on smoking history and CXR appearance - on bronchodilator, no wheeze on exam Encephalopathy (worse at night): ?suspected ETOH with withdrawal vs likely sleep deprivation compounded by underlying dementia + icu delerium -UDS neg -CT brain with small lacunar infarct left caudate (not acute), mild atrophy frontal lobes, and chronic ischemic changes. 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 -2/2 sleep deprivation + likely underlying dementia (vascular given CT findings) -improving slowly -continue thiamine supplementation on zyprexa qhs, and prn, pt does get angry at times *Sleep Deprivation: -conservative management Hypokalemia -resolved Tobacco abuse: -outpatient management HTN: -bp uncontrolled, started on hydralazine 25mg tid, increase dose to 50mg tid Oropharyngeal Dysphagia: -appreciate speech therapy input, continue rehab -MBS if remains in the hospital. -Diet per ST, -pt/ot -ppx: heparin d/c planning to SNF once stable. Medical - PN: Qual - VTE Deep Vein Thrombosis/Pulmonary Embolism Present on Admission: No
--- NOTE | 2018-07-26 13:03 | Ultrasound Report ---
CLINICAL INFORMATION: TIA COMPARISON: None. TECHNIQUE: Spectral Doppler velocity measurements were obtained in the proximal, mid and distal common and internal carotid, both vertebral and proximal external carotid arteries bilaterally. Supplemental color and power Doppler imaging was also obtained to optimize stenosis detection. In reporting, any internal carotid stenosis was indirectly quantified comparing the distal internal carotid velocity. For ratio comparison, the internal carotid artery, at the level of stenosis, was utilized in the numerator and the normal distal internal carotid artery velocity was utilized as the denominator. Velocities are validated with angiographic measurements extrapolated from diameter data - as defined by the Society of Radiologists in Ultrasound Consensus Conference .Radiology 2003; 229; 340 - 346. FINDINGS: See worksheet by the technologist for velocities in PACS IMPRESSION: Both common, internal and external carotid arteries are widely patent. There is mild mixed fibrofatty calcific atherosclerotic plaque in both carotid bifurcations. Antegrade flow present in both vertebral arteries Please correlate with CTA CT Angiography or MRA MR Angiography if surgery is contemplated. Interpreted and Authenticated by: Keagan Arzola 07/26/18
[2018-07-26 14:02] LABS: Rheumatoid Factor 15 IU/ml (0-14)
[2018-07-26] MEDS ORDERED: hydrALAZINE 25 MG TABLET PO SCH (15:00)
[2018-07-26] MEDS: ATORVASTATIN 20 MG TABLET PO SCH (20:11)
[2018-07-26] MEDS: OLANZapine 5 MG TABLET PO SCH (20:12)
[2018-07-27] MEDS: IPRATROPIUM/ALBUTEROL 3 ML AMPUL.NEB NEB SCH ×4 (01:12→18:53)
[2018-07-27 05:33] LABS: Basophils # (Auto) 0 K/mcL (0.0-0.3); Basophils % (Auto) 0.1 % (0.0-2.0); Eosinophils # (Auto) 0.2 K/mcL (0.0-0.7); Eosinophils % (Auto) 0.8 % (0.0-7.0); Granulocytes % (Auto) 82.3 % (38.0-78.0); Lymphocytes % (Auto) 5.5 % (15.5-49.0); Mean Corpuscular HGB Conc 33.2 g/dL (31.0-36.0); Monocytes # (Auto) 2.2 K/mcL (0.1-0.9); Monocytes % (Auto) 11.3 % (1.0-12.0); Platelet Count 416 K/mcL (140-440); RBC 4.01 M/mcL (4.50-5.90); Red Cell Distribution Width 14.1 % (11.5-14.5)
[2018-07-27 05:47] LABS: ALT/SGPT 27 U/l (0-40); Albumin 3.2 gm/dL (3.2-5.2); Albumin/Globulin Ratio 0.8 (1.0-2.3); Alkaline Phosphatase 69 U/L (39-117); Bilirubin,Direct < 0.2 mg/dL (0.0-0.3); Blood Urea Nitrogen 32 mg/dl (6-20); Gamma Glutamyl Transpeptidase 57 U/L (8-61); Uric Acid 5.6 mg/dL (2.5-8.0)
[2018-07-27] MEDS: PIPERACILLIN SODIUM/TAZOBACTAM 3.375 GM in DEXTROSE 5% IN WATER 50 ML IV SCH ×3 (06:11→21:26)
[2018-07-27] MEDS: 0.9 % SODIUM CHLORIDE 10 ML SYRINGE IV SCH ×3 (06:11→21:27)
[2018-07-27] MEDS: INSULIN LISPRO 1 UNIT/0.01 ML UNIT SQ SCH ×4 (07:34→19:54)
[2018-07-27] MEDS: hydrALAZINE 25 MG TABLET PO SCH ×3 (08:11→19:52)
[2018-07-27] MEDS: THIAMINE 100 MG TABLET PO SCH (08:12)
[2018-07-27] MEDS: amLODIPine 10 MG TABLET PO SCH (08:12)
[2018-07-27] MEDS: ASPIRIN 81 MG TAB.CHEW PO SCH (08:13)
[2018-07-27] MEDS: HEPARIN 5,000 UNIT/ML VIAL SQ SCH ×2 (08:13→19:53)
[2018-07-27] MEDS: POTASSIUM CHLORIDE 20 MEQ/15 ML ML PT SCH ×2 (08:13→16:47)
[2018-07-27] MEDS: FOLIC ACID/VITAMIN B COMP W-C 1 TAB TABLET PO SCH (08:13)
[2018-07-27] MEDS: CHLORHEXIDINE GLUCONATE 1 ML ORAL.SOL SWABMOUTH SCH ×2 (08:14→19:57)
[2018-07-27] MEDS: ACETAMINOPHEN 325 MG TABLET PO PRN ×2 (08:14→14:43)
[2018-07-27] MEDS: METOPROLOL SUCCINATE 50 MG TAB.XL.24H PO SCH (08:20)
[2018-07-27] MEDS ORDERED: ASPIRIN 81 MG TAB.CHEW PO SCH (09:00)
[2018-07-27] MEDS: LINEZOLID 600 MG TABLET PO SCH ×2 (09:41→19:52)
[2018-07-27] MEDS: NICOTINE 21 MG PATCH TOPICAL SCH (10:07)
--- NOTE | 2018-07-27 12:30 | XRay Report ---
CLINICAL INFORMATION: aspiration COMPARISON: None. FINDINGS: The attached stable IMPRESSION: Please see speech pathology report. There appear to be trace amounts of descending aspiration into the laryngeal vestibule on the thin and nectar quality barium, due to incomplete epiglottis closure. Interpreted and Authenticated by: Keagan Arzola 07/27/18
--- NOTE | 2018-07-27 13:11 | Internal Med Progress Note ---
Medical - PN: Subj Patient information: Note initiated : 07/27/18 at 1:08 pm Service Date, if different from initiated Date: [] Patient: Breezy Barnard a 58 y/o M admitted on 07/14/18 for Cough, body aches. Chief Complaint: [] Interval history: Mr. Barnard is a 58 year old M who presents with cough shortness of breath malaise for 3-4 days. He reports he is had a cough for about 3 days which she says is dry. He has be en around a relative that was sick, however, he denies any fevers or chills. Denies any myalgias does have worsening knee pain. That is a chronic injury and is chronic chronic back pain. He has shortness of breath both states that it actually is little bit better than it was a couple days ago. He says he had a hard time sleeping the past 3 nights that the main reason he came in. He denies having any shortness of breath when he lays flat on his back, no orthopnea. Denies any edema. Denies any history of heart or lung disease. States he is urinating just fine and that is of pale yellow. Last time he saw a primary care provider was he says 20 years ago. When he arrived in the ER his oxygen saturations were in the high 70s on room air. He did receive several breathing treatments which she says did help him but he still was quite tachypneic and using accessory muscles and was sub sequently put on BiPAP. Chest x-ray with some cephalization and [place] B line patient was given 40 of Lasix and put out 1000 in the Sr bag. I saw him in the ICU he had 400 additional cc in the bag. Also found to be hypertensive in the ED. He does not have any known medical conditions and does not take any home medications. 07/15 Patient can continued to become more more tachypneic last night until the need for intubation was seen. Currently sedated on the vent. No acute distress. Titrating down FiO2. Respiratory rate 20s-30. 07/16 Patient had increased urine output last night. Vent parameters improving. Sedated but awakens partially to voice and moves extremities. Good peak and plateau pressures and on compliance 48. Sedation vacation and weaning trial. 07/17 No issues overnight. Patient stable on the vent without sedation and comfortable. Awake on vent follows commands. Good vent parameters and performing weaning trial this morning. With likely extubation. 07/18 Intubated yesterday placed on BiPAP for most of the day and overnight. Patient seen by speech therapy and put on dysphagia diet. Patient was breakfast this morning and on nasal cannula and doing quite well. Denies any shortness of breath has occasional cough no other complaints. 07/19 Taken off oxygen this morning now on room air. Sitting up eating breakfast. Does have a cough he says he always has a cough does not really notice much shortness of breath. No events overnight other than not sleeping very well. 07/20 Patient significantly confused delirious and restless. She was score 14. On be nzodiazepines/antipsychotics. Persistent elevation blood pressure around 160. Will need outpatient follow-up with PCP. Potassium at 3 on oral iron replacement. No major telemetry events. 07/21-patient continues to be hypertensive and actively withdrawing with CIWAA scores in 20. Started on Precedex drip. Continue critical care management for high risk DT. Systolics has improved to 160 since. Continue IV thiamine. Consider neuroimaging if continues to worsen clinically more labored this mid morning and started back on bipap. 07/22 Off BiPAP to oxymask at 3 L this morning. Respiratory rate 20s. And saturations mid 90s. Following some commands. And weaning down Precedex. 07/23 Doing quite well this morning. Sitting up eating breakfast with dysphagia diet. He is on room air coherent and carrying a conversation on and I am unable to understand his verbalizations. When asked about alcohol intake he says he does drink moonshine only once a week. No other liquor/beer. Does have a cough nonproductive at this time. Denies shortness of breath. 07/24 Pt seen examined, was in bed, noted that he was short of breath in the morning, but better during rounds. able to hold a conversation, but speech is still slow. He is able to answer questions now, which looks like a improvement, patient unfortunately had shortness of breath this morning, blood pressure still uncontrolled and WBC count that trended up. Chest x-ray shows increased interstitial markings. Discontinue IV fluids given round of Lasix. I again tried to see how much he drinks and he denied any heavy use of alcohol. 07/25 Patient seen and examined, no acute overnight events, labs stable, WBC elevated but stable. Creatinine is stable. Patient is still on oxygen supplementation, at 2 L. Chest x-ray done today sh ows slight worsening of pulmonary interstitial markings. CT chest done shows diffuse interstitial involvement. Likely aspiration. Patient is clinically improving, is able to ambulate well and feels better. Patient most likely has chemical pneumonitis however will cover with antibiotics 07/26 Pt seen examined, during change in status earlyi n AM and also during rounds See event note for details THis AM pt seems more back to baseline status, upset, and verbal in his communications Pupils remain unequal, but otherwise non focal exam MRI head shows multiple lesiions, some acute, some chronic, a wide differential provided. will initiate basic workup, likely the patient has lacunar infarcts. check lipid panel, tsh, a1c, start pt on aSA, and statin, get carotid USG Will refer to neurology as outpatient for further evaluation. WBC count is still elevated by stable. 07/27 Pt seen examined, no acute overnight issues this AM sitting in chair, comfortable, Pupils are symmetrical now. no events on tele He wants to go home today, notes he came in for a colonoscopy, and we have kept him long, we did not diagnose his back pain in time and he is upset about it he wants to go home to pay his bills He has exhibited paranoid behaviour while in the hospital, yesterday accusing staff of not telling him that his daughter is here, and today trying to keep him against his will. His speech on the other had is clearer. Talking to the Staff it seems he has family h/o schizophrenia. Wbc still up, given pna on CT, will add mrsa coverage, add zyvox to his regime. Pertinent ROS: Denies headache, dizziness Denies chest pain, palpitations Denies cough or shortness of breath Denies abdominal pain, nausea or vomiting. - Constitutional Vitals: Vital Signs Temp Pulse Resp BP Pulse Ox 98.1 F 75 20 132/86 92 07/27/18 11:11 07/27/18 11:11 07/27/18 11:11 07/27/18 11:11 07/27/18 11:11 Period Temp Pulse Resp BP Sys/Madrigal Pulse Ox Last 24 Hr 97.3 F-99.4 F 75-87 18-28 132-197/86-106 91-95 Intake and Output 07/26/18 07/27/18 07/27/18 21:59 05:59 13:59 Intake Total 1050 / 2650 1550 / 2650 1090 / 1090 Output Total 125 / 176 300 / 300 Balance 925 / 2474 1550 / 2474 790 / 790 Weight 126 lb Intake & Output: Intake & Output 07/26/18 07/27/18 07/27/18 21:59 05:59 13:59 Intake Total 1050 / 2650 1550 / 2650 1090 / 1090 Output Total 125 / 176 300 / 300 Balance 925 / 2474 1550 / 2474 790 / 790 Weight 126 lb Intake: IV 50 / 150 50 / 150 50 / 50 Zosyn 3.375 gm In Dextrose 5% 50 / 100 50 / 100 50 / 50 in Water 50 ml @ 100 mls/hr IV Q8H [facility] Rx#:[id number] Oral 1000 / 2500 1500 / 2500 1040 / 1040 Output: Void Amount 125 / 175 300 / 300 Other: Meal Dinner Lunch Percent of Meal Consumed 25% 100% Feeding Ability Assist with Tray Set Up Urine Appearance Clear Urine Color Light Tracy # Voids 1 3 1 Exam: Constitutional; Afebrile, alert, not in distress. Eyes- No icterus, , No periorbital swelling Ears- Ext ear normal, hearing normal to conversation. Neck- Midline trachea, supple Respiratory system: Air Entry equal on both sides, bibasilar crackles, mild CVS- Rate rhythm regular, S1,S2 heard, no gallop, no rub. Abdomen- Soft nontender abdomen, no organomegaly, no tenderness, no guarding or rigidity, OVERHAULER- AOOx2, moving all extremities, no gross focal deficit noted. pupils seemed equal to me during rounds. Psych- paranoid behavoiur. Medical - PN: Obj Da - Labs CBC & Chem 7: 07/27/18 04:10 07/27/18 04:10 Labs: Abnormal Lab Results 07/27/18 07/27/18 07/26/18 04:10 04:10 13:05 WBC 19.1 H RBC 4.01 L Hgb 12.9 L Hct 38.8 L Gran % 82.3 H Lymph % (Auto) 5.5 L Gran # 15.7 H Lymph # (Auto) 1.0 L Webb # (Auto) 2.2 H ESR BUN 32 H Creatinine 1.9 H Glucose 118 H Lactate Dehydrogenase 387 H C-Reactive Protein Globulin 4.0 H Albumin/Globulin Ratio 0.8 L Prolactin Rheumatoid Factor 15 H 07/26/18 07/26/18 07/26/18 04:55 04:55 04:50 WBC RBC Hgb Hct Gran % Lymph % (Auto) Gran # Lymph # (Auto) Webb # (Auto) ESR 83 H BUN Creatinine Glucose Lactate Dehydrogenase C-Reactive Protein 11.2 H Globulin Albumin/Globulin Ratio Prolactin 17.5 H Rheumatoid Factor 07/26/18 07/26/18 07/25/18 04:45 04:44 04:15 WBC 17.1 H RBC 4.06 L Hgb 12.9 L Hct 38.9 L Gran % 83.1 H Lymph % (Auto) 5.7 L Gran # 14.2 H Lymph # (Auto) 1.0 L Webb # (Auto) 1.8 H ESR BUN 42 H 37 H Creatinine 1.9 H 1.9 H Glucose 111 H Lactate Dehydrogenase 299 H C-Reactive Protein Globulin Albumin/Globulin Ratio Prolactin Rheumatoid Factor 07/25/18 04:15 WBC 16.5 H RBC 4.02 L Hgb 12.9 L Hct 38.9 L Gran % 85.6 H Lymph % (Auto) 5.3 L Gran # 14.1 H Lymph # (Auto) 0.9 L Webb # (Auto) 1.5 H ESR BUN Creatinine Glucose Lactate Dehydrogenase C-Reactive Protein Globulin Albumin/Globulin Ratio Prolactin Rheumatoid Factor Meds: Medications Acetaminophen (Tylenol) 650 mg PO Q6HP PRN PRN Reason: PAIN/FEVER > 101 Last Admin: 07/27/18 08:14 Dose: 650 mg Documented by: Albuterol/Ipratropium (Duoneb) 3 ml NEB Q4HP PRN PRN Reason: Bronchospasm Albuterol/Ipratropium (Duoneb) 3 ml NEB Q6HRT [facility] Last Admin: 07/27/18 08:03 Dose: 3 ml Documented by: Amlodipine Besylate (Norvasc) 10 mg PO DAILY [facility] Last Admin: 07/27/18 08:12 Dose: 10 mg Documented by: Aspirin (Aspirin) 81 mg PO DAILY [facility] Last Admin: 07/27/18 08:13 Dose: 81 mg Documented by: Atorvastatin Calcium (Lipitor) 40 mg PO [facility] Last Admin: 07/26/18 20:11 Dose: 40 mg Documented by: Chlorhexidine Gluconate (Peridex) 15 ml SWABMOUTH BID [facility] Last Admin: 07/27/18 08:14 Dose: 15 ml Documented by: Dextrose (Dextrose 50%) 50 ml IV UD PRN PRN Reason: Hypoglycemia Diagnostic Test (Pha) (Accu-Chek) 1 each FS [facility] Last Admin: 07/27/18 11:13 Dose: 1 each Documented by: Heparin Sodium (Porcine) (Heparin) 5,000 unit SQ Q12 [facility] Last Admin: 07/27/18 08:13 Dose: 5,000 unit Documented by: Hydralazine HCl (Apresoline) 50 mg PO TID [facility] Last Admin: 07/27/18 08:11 Dose: 50 mg Documented by: Potassium Chloride 40 meq/ (Dextrose) 520 mls @ 130 mls/hr IV UD PRN PRN Reason: K+ = or < 3.5 Piperacillin Sod/Tazobactam (Sod 3.375 gm/ Dextrose) 50 mls @ 100 mls/hr IV Q8H [facility] Last Infusion: 07/27/18 07:00 Dose: Infused Documented by: Insulin Human Lispro (Humalog) 0 unit SQ [facility]; Protocol Last Admin: 07/27/18 11:51 Dose: 6 units Documented by: Linezolid (Zyvox) 600 mg PO Q12 [facility] Last Admin: 07/27/18 09:41 Dose: 600 mg Documented by: Loperamide HCl (Imodium) 2 mg PO PRN PRN PRN Reason: Diarrhea Metoprolol Succinate (Toprol Xl) 100 mg PO DAILY [facility] Last Admin: 07/27/18 08:20 Dose: 100 mg Documented by: Multivit/Ca Carb/B Cmplx/FA/Prenat (Diatx) 1 tab PO DAILY [facility] Last Admin: 07/27/18 08:13 Dose: 1 tab Documented by: Nicotine (Nicoderm) 21 mg TOPICAL DAILY@1000 [facility] Last Admin: 07/27/18 10:07 Dose: 21 mg Documented by: Olanzapine (Zyprexa) 5 mg PO Q6HP PRN PRN Reason: Agitation Last Admin: 07/27/18 11:50 Dose: 5 mg Documented by: Olanzapine (Zyprexa) 5 mg PO HS [facility] Last Admin: 07/26/18 20:12 Dose: 5 mg Documented by: Ondansetron HCl (Zofran) 4 mg IV Q4HP PRN PRN Reason: Nausea And Vomiting Potassium Chloride (Potassium Chloride) 15 meq PT BIDCC [facility] Last Admin: 07/27/18 08:13 Dose: 15 meq Documented by: Sodium Chloride (Saline Flush) 10 ml IV Q8 [facility] Last Admin: 07/27/18 06:11 Dose: 10 ml Documented by: Thiamine HCl (Vitamin B1) 100 mg PO DAILY [facility] Last Admin: 07/27/18 08:12 Dose: 100 mg Documented by: Medical - PN: A/P - Time Spent With Patient Total time spent is greater than 50% in coordination of care (as documented) at patient's floor/unit and/or counseling patient: - Narrative A/P Narrative: A: Lacunar infarcts/Microvascular disease -Varied etiology, given pt risk factors, likely vascular in nature, -carotid usg neg for severe stenosis, does have atherosclerosis. -started on asa and statin -LDL 78, a1c 6, tsh normal - esr and crp is elevated, could be from pneumonia, but given concern for autoimmune process on mri, check zenia, anca, c3 and c4 are normal. -outpatient Neurology referral for further evaluation -age of lesions not sure, within 7 days? could explain some dysphagia, /pupil inequality Primary INFLUENZA A Pneumonia) -resolved, s/p treatment Aspiration Pneumonitis/ health care associated pneumonia -Likely chemical pneumonitis, pt clinically stable, but wbc still elevated, add zyvox to zosyn. Acute hypoxic respiratory failure: 2/2 above -Intubated early on 07/15 & extubated 1/2 to bipap, -low PCT, nonproductive cough, afebrile -echo with normal EF, unable to assess diastolic fxn and pulmonary artery pressure -now on room air. - stable now. -seen by pulm Lactic acidosis: 2/2 hypoxia, resolved RADHA on likely CKD (unknown baseline, but suspect mid to high 1's): ATN from hypoxia -renal u/s with chronic dz b/l, no obstruction , stenosis of left renal aa -UOP stable -creat is 1.9 -outpatient follow up. Likely COPD, with exacerbation: based on smoking history and CXR appearance - on bronchodilator, no wheeze on exam Encephalopathy (worse at night): ?suspected ETOH with withdrawal vs likely sleep deprivation compounded by underlying dementia + icu delerium -UDS neg -CT brain with small lacunar infarct left caudate (not acute), mild atrophy frontal lobes, and chronic ischemic changes. 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 -MRI showed some acute lacunar infarcts too, which may have contributed to his symptoms. -he is also exhibhiting paranoid behaviour, family history of schizophrenia? not sure what his baseline is, -his behavour could also be 2/2 sleep deprivation + likely underlying dementia (vascular given CT findings) - slow improvement. -continue thiamine supplementation on zyprexa qhs, and prn, pt does get angry at times *Sleep Deprivation: -conservative management Hypokalemia -resolved Tobacco abuse: -outpatient management HTN: -bp uncontrolled, on hydralazine 50tid, norvas 10 and metoprolol 100 daily (xr), start on doxazosin qhs and see if this helps. Oropharyngeal Dysphagia: -appreciate speech therapy input, continue rehab -MBS done, -Diet per ST, -pt/ot -ppx: heparin d/c planning to SNF once stable. Medical - PN: Qual - VTE Deep Vein Thrombosis/Pulmonary Embolism Present on Admission: No
[2018-07-27] MEDS: ATORVASTATIN 20 MG TABLET PO SCH (19:52)
[2018-07-27] MEDS: OLANZapine 5 MG TABLET PO SCH (19:53)
[2018-07-27] MEDS ORDERED: DOXAZOSIN 1 MG TABLET PO SCH (21:00)
[2018-07-28] MEDS: IPRATROPIUM/ALBUTEROL 3 ML AMPUL.NEB NEB SCH ×4 (03:05→18:48)
[2018-07-28 05:25] LABS: Basophils # (Auto) 0 K/mcL (0.0-0.3); Basophils % (Auto) 0.1 % (0.0-2.0); Eosinophils # (Auto) 0 K/mcL (0.0-0.7); Eosinophils % (Auto) 0.3 % (0.0-7.0); Granulocytes % (Auto) 85.7 % (38.0-78.0); Lymphocytes # (Auto) 0.8 K/mcL (1.5-4.8); Lymphocytes % (Auto) 4.9 % (15.5-49.0); Mean Corpuscular HGB Conc 33.6 g/dL (31.0-36.0); Monocytes # (Auto) 1.5 K/mcL (0.1-0.9); Platelet Count 389 K/mcL (140-440); Red Cell Distribution Width 13.4 % (11.5-14.5)
[2018-07-28 05:49] LABS: ALT/SGPT 23 U/l (0-40); Albumin/Globulin Ratio 0.9 (1.0-2.3); Alkaline Phosphatase 61 U/L (39-117); Bilirubin,Direct < 0.2 mg/dL (0.0-0.3); Blood Urea Nitrogen 29 mg/dl (6-20); Gamma Glutamyl Transpeptidase 47 U/L (8-61); Uric Acid 5.6 mg/dL (2.5-8.0)
[2018-07-28] MEDS: PIPERACILLIN SODIUM/TAZOBACTAM 3.375 GM in DEXTROSE 5% IN WATER 50 ML IV SCH ×3 (05:57→20:53)
[2018-07-28] MEDS: 0.9 % SODIUM CHLORIDE 10 ML SYRINGE IV SCH ×3 (05:58→20:53)
[2018-07-28] MEDS ORDERED: NALOXONE HCL 0.4 MG/ML VIAL ONE (05:58)
[2018-07-28] MEDS: INSULIN LISPRO 1 UNIT/0.01 ML UNIT SQ SCH ×4 (06:57→20:51)
[2018-07-28] MEDS ORDERED: POTASSIUM CHLORIDE 20 MEQ PACKET PO ONE (08:08)
[2018-07-28] MEDS ORDERED: MAGNESIUM SULFATE 2 GM/50 ML BAG IV ONE (09:00)
[2018-07-28] MEDS: POTASSIUM CHLORIDE 20 MEQ/15 ML ML PT SCH ×2 (09:04→16:56)
[2018-07-28] MEDS: LINEZOLID 600 MG TABLET PO SCH ×2 (09:06→20:51)
[2018-07-28] MEDS: FOLIC ACID/VITAMIN B COMP W-C 1 TAB TABLET PO SCH (09:06)
[2018-07-28] MEDS: METOPROLOL SUCCINATE 50 MG TAB.XL.24H PO SCH (09:06)
[2018-07-28] MEDS: amLODIPine 10 MG TABLET PO SCH (09:06)
[2018-07-28] MEDS: THIAMINE 100 MG TABLET PO SCH (09:06)
[2018-07-28] MEDS: hydrALAZINE 25 MG TABLET PO SCH ×3 (09:06→20:50)
[2018-07-28] MEDS: CHLORHEXIDINE GLUCONATE 1 ML ORAL.SOL SWABMOUTH SCH ×2 (09:07→20:51)
[2018-07-28] MEDS: ASPIRIN 81 MG TAB.CHEW PO SCH (09:07)
[2018-07-28] MEDS: HEPARIN 5,000 UNIT/ML VIAL SQ SCH ×2 (09:07→20:49)
[2018-07-28] MEDS: NICOTINE 21 MG PATCH TOPICAL SCH (10:42)
[2018-07-28] MEDS ORDERED: LOPERAMIDE 2 MG CAPSULE PO PRN (12:20)
[2018-07-28] MEDS ORDERED: POTASSIUM CHLORIDE 40 MEQ in DEXTROSE 5% IN WATER 500 ML IV PRN (12:20)
[2018-07-28] MEDS ORDERED: IPRATROPIUM/ALBUTEROL 3 ML AMPUL.NEB NEB PRN (12:20)
[2018-07-28] MEDS ORDERED: DEXTROSE 50% 50 ML VIAL IV PRN (12:20)
[2018-07-28] MEDS ORDERED: OLANZapine 10 MG VIAL IM PRN (12:20)
[2018-07-28] MEDS ORDERED: ONDANSETRON 4 MG/2 ML VIAL IV PRN (12:20)
--- NOTE | 2018-07-28 13:53 | Internal Med Progress Note ---
Medical - PN: Subj Patient information: Note initiated : 07/28/18 at 1:49 pm Service Date, if different from initiated Date: [] Patient: Breezy Barnard a 58 y/o M admitted on 07/14/18 for Cough, body aches. Chief Complaint: [] Interval history: Mr. Barnard is a 58 year old M who presents with cough shortness of breath malaise for 3-4 days. He reports he is had a cough for about 3 days which she says is dry. He has be en around a relative that was sick, however, he denies any fevers or chills. Denies any myalgias does have worsening knee pain. That is a chronic injury and is chronic chronic back pain. He has shortness of breath both states that it actually is little bit better than it was a couple days ago. He says he had a hard time sleeping the past 3 nights that the main reason he came in. He denies having any shortness of breath when he lays flat on his back, no orthopnea. Denies any edema. Denies any history of heart or lung disease. States he is urinating just fine and that is of pale yellow. Last time he saw a primary care provider was he says 20 years ago. When he arrived in the ER his oxygen saturations were in the high 70s on room air. He did receive several breathing treatments which she says did help him but he still was quite tachypneic and using accessory muscles and was sub sequently put on BiPAP. Chest x-ray with some cephalization and [place] B line patient was given 40 of Lasix and put out 1000 in the Sr bag. I saw him in the ICU he had 400 additional cc in the bag. Also found to be hypertensive in the ED. He does not have any known medical conditions and does not take any home medications. 07/15 Patient can continued to become more more tachypneic last night until the need for intubation was seen. Currently sedated on the vent. No acute distress. Titrating down FiO2. Respiratory rate 20s-30. 07/16 Patient had increased urine output last night. Vent parameters improving. Sedated but awakens partially to voice and moves extremities. Good peak and plateau pressures and on compliance 48. Sedation vacation and weaning trial. 07/17 No issues overnight. Patient stable on the vent without sedation and comfortable. Awake on vent follows commands. Good vent parameters and performing weaning trial this morning. With likely extubation. 07/18 Intubated yesterday placed on BiPAP for most of the day and overnight. Patient seen by speech therapy and put on dysphagia diet. Patient was breakfast this morning and on nasal cannula and doing quite well. Denies any shortness of breath has occasional cough no other complaints. 07/19 Taken off oxygen this morning now on room air. Sitting up eating breakfast. Does have a cough he says he always has a cough does not really notice much shortness of breath. No events overnight other than not sleeping very well. 07/20 Patient significantly confused delirious and restless. She was score 14. On be nzodiazepines/antipsychotics. Persistent elevation blood pressure around 160. Will need outpatient follow-up with PCP. Potassium at 3 on oral iron replacement. No major telemetry events. 07/21-patient continues to be hypertensive and actively withdrawing with CIWAA scores in 20. Started on Precedex drip. Continue critical care management for high risk DT. Systolics has improved to 160 since. Continue IV thiamine. Consider neuroimaging if continues to worsen clinically more labored this mid morning and started back on bipap. 07/22 Off BiPAP to oxymask at 3 L this morning. Respiratory rate 20s. And saturations mid 90s. Following some commands. And weaning down Precedex. 07/23 Doing quite well this morning. Sitting up eating breakfast with dysphagia diet. He is on room air coherent and carrying a conversation on and I am unable to understand his verbalizations. When asked about alcohol intake he says he does drink moonshine only once a week. No other liquor/beer. Does have a cough nonproductive at this time. Denies shortness of breath. 07/24 Pt seen examined, was in bed, noted that he was short of breath in the morning, but better during rounds. able to hold a conversation, but speech is still slow. He is able to answer questions now, which looks like a improvement, patient unfortunately had shortness of breath this morning, blood pressure still uncontrolled and WBC count that trended up. Chest x-ray shows increased interstitial markings. Discontinue IV fluids given round of Lasix. I again tried to see how much he drinks and he denied any heavy use of alcohol. 07/25 Patient seen and examined, no acute overnight events, labs stable, WBC elevated but stable. Creatinine is stable. Patient is still on oxygen supplementation, at 2 L. Chest x-ray done today sh ows slight worsening of pulmonary interstitial markings. CT chest done shows diffuse interstitial involvement. Likely aspiration. Patient is clinically improving, is able to ambulate well and feels better. Patient most likely has chemical pneumonitis however will cover with antibiotics 07/26 Pt seen examined, during change in status earlyi n AM and also during rounds See event note for details THis AM pt seems more back to baseline status, upset, and verbal in his communications Pupils remain unequal, but otherwise non focal exam MRI head shows multiple lesiions, some acute, some chronic, a wide differential provided. will initiate basic workup, likely the patient has lacunar infarcts. check lipid panel, tsh, a1c, start pt on aSA, and statin, get carotid USG Will refer to neurology as outpatient for further evaluation. WBC count is still elevated by stable. 07/27 Pt seen examined, no acute overnight issues this AM sitting in chair, comfortable, Pupils are symmetrical now. no events on tele He wants to go home today, notes he came in for a colonoscopy, and we have kept him long, we did not diagnose his back pain in time and he is upset about it he wants to go home to pay his bills He has exhibited paranoid behaviour while in the hospital, yesterday accusing staff of not telling him that his daughter is here, and today trying to keep him against his will. His speech on the other had is clearer. Talking to the Staff it seems he has family h/o schizophrenia. Wbc still up, given pna on CT, will add mrsa coverage, add zyvox to his regime. 07/28 Patient seen and examined, no acute overnight events. Sitting in chair comfortable notes she wants to be discharged. Still has some paranoid thoughts, noted that someone is going to come to clean up the hospital and drive was all out of the hospital. He hears his daughter's voice intermittently. He will transfer to [facility] status, hemodynamically stable. No events on telemetry WBC trending down after addition of Zyvox. Continue the patient on Zyvox and Zosyn for now. Continue speech therapy intervention Start the patient on Seroquel at bedtime, olanzapine to be used I am only in times of agitation The pupils are equal in size, Pertinent ROS: Denies headache, dizziness Denies chest pain, palpitations Denies cough or shortness of breath Denies abdominal pain, nausea or vomiting. - Constitutional Vitals: Vital Signs Temp Pulse Resp BP Pulse Ox 98 F 82 18 140/90 91 07/28/18 11:09 07/28/18 13:23 07/28/18 13:23 07/28/18 11:09 07/28/18 11:09 Period Temp Pulse Resp BP Sys/Madrigal Pulse Ox Last 24 Hr 97 F-99.1 F 79-93 18-32 140-176/86-100 91-98 Intake and Output 07/27/18 07/28/18 07/28/18 21:59 05:59 13:59 Intake Total 900 / 2470 480 / 2470 300 / 300 Output Total 350 / 1450 800 / 1450 501 / 501 Balance 550 / 1020 -320 / 1020 -201 / -201 Weight 132 lb Intake & Output: Intake & Output 07/27/18 07/28/18 07/28/18 21:59 05:59 13:59 Intake Total 900 / 2470 480 / 2470 300 / 300 Output Total 350 / 1450 800 / 1450 501 / 501 Balance 550 / 1020 -320 / 1020 -201 / -201 Weight 132 lb Intake: IV 100 / 150 Zosyn 3.375 gm In Dextrose 5% 100 / 150 in Water 50 ml @ 100 mls/hr IV Q8H [facility] Rx#:[id number] Oral 800 / 2320 480 / 2320 300 / 300 Output: Void Amount 350 / 1450 800 / 1450 500 / 500 # of times incontinent of urine Other: Meal Dinner Lunch Percent of Meal Consumed 100% 50% Urine Appearance Clear Urine Color Light Tracy Stool Size Small Stool Color Brown Stool Consistency Formed # Voids 1 # Bowel Movements 2 Exam: Constitutional; Afebrile, cooperative, alert, not in distress. Respiratory system: Air Entry equal on both sides, No crackles or wheezing, no rhonchi. CVS- Rate rhythm regular, S1,S2 heard, no gallop, no rub. Abdomen- Soft nontender abdomen, no organomegaly, no tenderness, no guarding or rigidity, [employer]- AOOx2, moving all extremities, no gross focal deficit noted. slurred speech , but much better from few days ago. Medical - PN: Obj Da - Labs CBC & Chem 7: 07/28/18 04:20 07/28/18 04:20 Labs: Abnormal Lab Results 07/28/18 07/28/18 07/27/18 04:20 04:20 04:10 WBC 16.3 H RBC 3.60 L Hgb 11.6 L Hct 34.5 L Gran % 85.7 H Lymph % (Auto) 4.9 L Gran # 14.0 H Lymph # (Auto) 0.8 L [place] # (Auto) 1.5 H ESR BUN 29 H 32 H Creatinine 1.8 H 1.9 H Glucose 118 H Lactate Dehydrogenase 387 H C-Reactive Protein Albumin 3.0 L Globulin 4.0 H Albumin/Globulin Ratio 0.9 L 0.8 L Prolactin Rheumatoid Factor 07/27/18 07/26/18 07/26/18 04:10 13:05 04:55 WBC 19.1 H RBC 4.01 L Hgb 12.9 L Hct 38.8 L Gran % 82.3 H Lymph % (Auto) 5.5 L Gran # 15.7 H Lymph # (Auto) 1.0 L [place] # (Auto) 2.2 H ESR BUN Creatinine Glucose Lactate Dehydrogenase C-Reactive Protein 11.2 H Albumin Globulin Albumin/Globulin Ratio Prolactin Rheumatoid Factor 15 H 07/26/18 07/26/18 07/26/18 04:55 04:50 04:45 WBC RBC Hgb Hct Gran % Lymph % (Auto) Gran # Lymph # (Auto) [place] # (Auto) ESR 83 H BUN 42 H Creatinine 1.9 H Glucose 111 H Lactate Dehydrogenase C-Reactive Protein Albumin Globulin Albumin/Globulin Ratio Prolactin 17.5 H Rheumatoid Factor 07/26/18 04:44 WBC 17.1 H RBC 4.06 L Hgb 12.9 L Hct 38.9 L Gran % 83.1 H Lymph % (Auto) 5.7 L Gran # 14.2 H Lymph # (Auto) 1.0 L [place] # (Auto) 1.8 H ESR BUN Creatinine Glucose Lactate Dehydrogenase C-Reactive Protein Albumin Globulin Albumin/Globulin Ratio Prolactin Rheumatoid Factor Meds: Medications Acetaminophen (Tylenol) 650 mg PO Q6HP PRN PRN Reason: PAIN/FEVER > 101 Albuterol/Ipratropium (Duoneb) 3 ml NEB Q4HP PRN PRN Reason: Bronchospasm Albuterol/Ipratropium (Duoneb) 3 ml NEB Q6HRT [facility] Last Admin: 07/28/18 13:23 Dose: 3 ml Documented by: Amlodipine Besylate (Norvasc) 10 mg PO DAILY [facility] Aspirin (Aspirin) 81 mg PO DAILY [facility] Atorvastatin Calcium (Lipitor) 40 mg PO HS [facility] Chlorhexidine Gluconate (Peridex) 15 ml [place] BID [place] Dextrose (Dextrose 50%) 50 ml IV UD PRN PRN Reason: Hypoglycemia Diagnostic Test (Pha) (Accu-Chek) 1 each FS ACHS [place] Doxazosin Mesylate (Cardura) 2 mg PO HS [facility] Heparin Sodium (Porcine) (Heparin) 5,000 unit SQ Q12 [facility] Hydralazine HCl (Apresoline) 50 mg PO TID [facility] Potassium Chloride 40 meq/ (Dextrose) 520 mls @ 130 mls/hr IV UD PRN PRN Reason: K+ = or < 3.5 Piperacillin Sod/Tazobactam (Sod 3.375 gm/ Dextrose) 50 mls @ 100 mls/hr IV Q8H [facility] Last Admin: 07/28/18 13:30 Dose: 100 mls/hr Documented by: Insulin Human Lispro (Humalog) 0 unit SQ ACHS [place]; Protocol Linezolid (Zyvox) 600 mg PO Q12 [facility] Loperamide HCl (Imodium) 2 mg PO PRN PRN PRN Reason: Diarrhea Metoprolol Succinate (Toprol Xl) 100 mg PO DAILY [facility] Multivit/Ca Carb/B Cmplx/FA/Prenat (Diatx) 1 tab PO DAILY [facility] Nicotine (Nicoderm) 21 mg TOPICAL DAILY@1000 [facility] Olanzapine (Zyprexa) 5 mg IM Q2HP PRN PRN Reason: Agitation Ondansetron HCl (Zofran) 4 mg IV Q4HP PRN PRN Reason: Nausea And Vomiting Potassium Chloride (Potassium Chloride) 15 meq PT BIDCC [facility] Quetiapine Fumarate (Seroquel) 50 mg PO HS [facility] Sodium Chloride (Saline Flush) 10 ml IV Q8 [facility] Last Admin: 07/28/18 13:30 Dose: 10 ml Documented by: Thiamine HCl (Vitamin B1) 100 mg PO DAILY [facility] Medical - PN: A/P - Time Spent With Patient Total time spent is greater than 50% in coordination of care (as documented) at patient's floor/unit and/or counseling patient: - Narrative A/P Narrative: A: Lacunar infarcts/Microvascular disease -Varied etiology, given pt risk factors, likely vascular in nature, -carotid usg neg for severe stenosis, does have atherosclerosis. -started on asa and statin -LDL 78, a1c 6, tsh normal - esr and crp is elevated, could be from pneumonia, but given concern for autoimmune process on mri, check zenia, anca, c3 and c4 are normal. -outpatient Neurology referral for further evaluation -age of lesions not sure, within 7 days? could explain some dysphagia, /pupil inequality -zenia, anca pending, Primary INFLUENZA A Pneumonia) -resolved, s/p treatment Aspiration Pneumonitis/ health care associated pneumonia -now on zyvox and zosyn , zyvox day 1, zosyn day 3. -wbc trending down. Acute hypoxic respiratory failure: 2/2 above -Intubated early on 07/15 & extubated 1/2 to bipap, -low PCT, nonproductive cough, afebrile -echo with normal EF, unable to assess diastolic fxn and pulmonary artery pressure -now on room air. - stable now. -seen by pulm Lactic acidosis: 2/2 hypoxia, resolved RADHA on likely CKD (unknown baseline, but suspect mid to high 1's): ATN from hypoxia -renal u/s with chronic dz b/l, no obstruction , stenosis of left renal aa -UOP stable -creat is 1.8 07/28 -outpatient follow up. Likely COPD, with exacerbation: based on smoking history and CXR appearance - on bronchodilator, no wheeze on exam Encephalopathy (worse at night): ?suspected ETOH with withdrawal vs likely sleep deprivation compounded by underlying dementia + icu delerium -UDS neg -CT brain with small lacunar infarct left caudate (not acute), mild atrophy frontal lobes, and chronic ischemic changes. 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 -MRI showed some acute lacunar infarcts too, which may have contributed to his symptoms. -he is also exhibhiting paranoid behaviour, family history of schizophrenia? not sure what his baseline is, -his behavour could also be 2/2 sleep deprivation + likely underlying dementia (vascular given CT findings) - slow improvement. -continue thiamine supplementation -start on seroquel at bed time, IM zyprexa prn for agitation. *Sleep Deprivation: -conservative management Hypokalemia -resolved Tobacco abuse: -outpatient management HTN: -bp uncontrolled, on hydralazine 50tid, norvas 10 and metoprolol 100 daily (xr), start on doxazosin qhs and it seems to have helped. increase doxazosin to 4mg qhs Oropharyngeal Dysphagia: -appreciate speech therapy input, continue rehab -MBS done, -Diet per ST, -pt/ot -ppx: heparin d/c planning to SNF once stable. Medical - PN: Qual - VTE Deep Vein Thrombosis/Pulmonary Embolism Present on Admission: No
[2018-07-28] MEDS: QUEtiapine 25 MG TABLET PO SCH (20:49)
[2018-07-28] MEDS: DOXAZOSIN 1 MG TABLET PO SCH (20:50)
[2018-07-28] MEDS: ATORVASTATIN 20 MG TABLET PO SCH (20:50)
[2018-07-28] MEDS ORDERED: DOXAZOSIN 1 MG TABLET PO SCH (21:00)
[2018-07-28] MEDS: ACETAMINOPHEN 325 MG TABLET PO PRN (21:46)
[2018-07-29] MEDS: IPRATROPIUM/ALBUTEROL 3 ML AMPUL.NEB NEB SCH ×5 (00:20→18:45)
[2018-07-29] MEDS: PIPERACILLIN SODIUM/TAZOBACTAM 3.375 GM in DEXTROSE 5% IN WATER 50 ML IV SCH ×3 (05:46→22:35)
[2018-07-29] MEDS: 0.9 % SODIUM CHLORIDE 10 ML SYRINGE IV SCH ×4 (05:46→22:35)
[2018-07-29 06:19] LABS: Basophils # (Auto) 0.1 K/mcL (0.0-0.3); Basophils % (Auto) 0.4 % (0.0-2.0); Eosinophils # (Auto) 0 K/mcL (0.0-0.7); Eosinophils % (Auto) 0.1 % (0.0-7.0); Granulocytes % (Auto) 80.4 % (38.0-78.0); Lymphocytes # (Auto) 1.1 K/mcL (1.5-4.8); Lymphocytes % (Auto) 8.1 % (15.5-49.0); Mean Cell Volume 96.1 fL (80.0-100.0); Mean Corpuscular HGB Conc 33.4 g/dL (31.0-36.0); Monocytes # (Auto) 1.5 K/mcL (0.1-0.9); Platelet Count 411 K/mcL (140-440); RBC 3.58 M/mcL (4.50-5.90); Red Cell Distribution Width 14.1 % (11.5-14.5)
[2018-07-29] MEDS: INSULIN LISPRO 1 UNIT/0.01 ML UNIT SQ SCH ×4 (06:42→21:59)
[2018-07-29 06:54] LABS: ALT/SGPT 20 U/l (0-40); Albumin/Globulin Ratio 0.8 (1.0-2.3); Alkaline Phosphatase 53 U/L (39-117); Bilirubin,Direct < 0.2 mg/dL (0.0-0.3); Blood Urea Nitrogen 23 mg/dl (6-20); Gamma Glutamyl Transpeptidase 42 U/L (8-61); Uric Acid 5.9 mg/dL (2.5-8.0)
[2018-07-29] MEDS: HEPARIN 5,000 UNIT/ML VIAL SQ SCH ×2 (08:52→21:52)
[2018-07-29] MEDS: POTASSIUM CHLORIDE 20 MEQ/15 ML ML PT SCH ×2 (08:52→16:44)
[2018-07-29] MEDS: THIAMINE 100 MG TABLET PO SCH (08:53)
[2018-07-29] MEDS: LINEZOLID 600 MG TABLET PO SCH ×2 (08:53→21:58)
[2018-07-29] MEDS: hydrALAZINE 25 MG TABLET PO SCH ×3 (08:53→21:58)
[2018-07-29] MEDS: FOLIC ACID/VITAMIN B COMP W-C 1 TAB TABLET PO SCH (08:54)
[2018-07-29] MEDS: METOPROLOL SUCCINATE 50 MG TAB.XL.24H PO SCH (08:54)
[2018-07-29] MEDS: amLODIPine 10 MG TABLET PO SCH (08:54)
[2018-07-29] MEDS: ASPIRIN 81 MG TAB.CHEW PO SCH (08:55)
[2018-07-29] MEDS: NICOTINE 21 MG PATCH TOPICAL SCH (08:55)
[2018-07-29] MEDS: ACETAMINOPHEN 325 MG TABLET PO PRN ×2 (08:55→18:58)
[2018-07-29] MEDS: CHLORHEXIDINE GLUCONATE 1 ML ORAL.SOL SWABMOUTH SCH ×2 (08:55→21:56)
--- NOTE | 2018-07-29 15:08 | Internal Med Progress Note ---
Medical - PN: Subj Patient information: Note initiated : 07/29/18 at 3:06 pm Service Date, if different from initiated Date: [] Patient: Breezy Barnard a 58 y/o M admitted on 07/14/18 for Cough, body aches. Chief Complaint: [] Interval history: Mr. Barnard is a 58 year old M who presents with cough shortness of breath malaise for 3-4 days. He reports he is had a cough for about 3 days which she says is dry. He has be en around a relative that was sick, however, he denies any fevers or chills. Denies any myalgias does have worsening knee pain. That is a chronic injury and is chronic chronic back pain. He has shortness of breath both states that it actually is little bit better than it was a couple days ago. He says he had a hard time sleeping the past 3 nights that the main reason he came in. He denies having any shortness of breath when he lays flat on his back, no orthopnea. Denies any edema. Denies any history of heart or lung disease. States he is urinating just fine and that is of pale yellow. Last time he saw a primary care provider was he says 20 years ago. When he arrived in the ER his oxygen saturations were in the high 70s on room air. He did receive several breathing treatments which she says did help him but he still was quite tachypneic and using accessory muscles and was sub sequently put on BiPAP. Chest x-ray with some cephalization and [place] B line patient was given 40 of Lasix and put out 1000 in the Sr bag. I saw him in the ICU he had 400 additional cc in the bag. Also found to be hypertensive in the ED. He does not have any known medical conditions and does not take any home medications. 07/15 Patient can continued to become more more tachypneic last night until the need for intubation was seen. Currently sedated on the vent. No acute distress. Titrating down FiO2. Respiratory rate 20s-30. 07/16 Patient had increased urine output last night. Vent parameters improving. Sedated but awakens partially to voice and moves extremities. Good peak and plateau pressures and on compliance 48. Sedation vacation and weaning trial. 07/17 No issues overnight. Patient stable on the vent without sedation and comfortable. Awake on vent follows commands. Good vent parameters and performing weaning trial this morning. With likely extubation. 07/18 Intubated yesterday placed on BiPAP for most of the day and overnight. Patient seen by speech therapy and put on dysphagia diet. Patient was breakfast this morning and on nasal cannula and doing quite well. Denies any shortness of breath has occasional cough no other complaints. 07/19 Taken off oxygen this morning now on room air. Sitting up eating breakfast. Does have a cough he says he always has a cough does not really notice much shortness of breath. No events overnight other than not sleeping very well. 07/20 Patient significantly confused delirious and restless. She was score 14. On be nzodiazepines/antipsychotics. Persistent elevation blood pressure around 160. Will need outpatient follow-up with PCP. Potassium at 3 on oral iron replacement. No major telemetry events. 07/21-patient continues to be hypertensive and actively withdrawing with CIWAA scores in 20. Started on Precedex drip. Continue critical care management for high risk DT. Systolics has improved to 160 since. Continue IV thiamine. Consider neuroimaging if continues to worsen clinically more labored this mid morning and started back on bipap. 07/22 Off BiPAP to oxymask at 3 L this morning. Respiratory rate 20s. And saturations mid 90s. Following some commands. And weaning down Precedex. 07/23 Doing quite well this morning. Sitting up eating breakfast with dysphagia diet. He is on room air coherent and carrying a conversation on and I am unable to understand his verbalizations. When asked about alcohol intake he says he does drink moonshine only once a week. No other liquor/beer. Does have a cough nonproductive at this time. Denies shortness of breath. 07/24 Pt seen examined, was in bed, noted that he was short of breath in the morning, but better during rounds. able to hold a conversation, but speech is still slow. He is able to answer questions now, which looks like a improvement, patient unfortunately had shortness of breath this morning, blood pressure still uncontrolled and WBC count that trended up. Chest x-ray shows increased interstitial markings. Discontinue IV fluids given round of Lasix. I again tried to see how much he drinks and he denied any heavy use of alcohol. 07/25 Patient seen and examined, no acute overnight events, labs stable, WBC elevated but stable. Creatinine is stable. Patient is still on oxygen supplementation, at 2 L. Chest x-ray done today sh ows slight worsening of pulmonary interstitial markings. CT chest done shows diffuse interstitial involvement. Likely aspiration. Patient is clinically improving, is able to ambulate well and feels better. Patient most likely has chemical pneumonitis however will cover with antibiotics 07/26 Pt seen examined, during change in status earlyi n AM and also during rounds See event note for details THis AM pt seems more back to baseline status, upset, and verbal in his communications Pupils remain unequal, but otherwise non focal exam MRI head shows multiple lesiions, some acute, some chronic, a wide differential provided. will initiate basic workup, likely the patient has lacunar infarcts. check lipid panel, tsh, a1c, start pt on aSA, and statin, get carotid USG Will refer to neurology as outpatient for further evaluation. WBC count is still elevated by stable. 07/27 Pt seen examined, no acute overnight issues this AM sitting in chair, comfortable, Pupils are symmetrical now. no events on tele He wants to go home today, notes he came in for a colonoscopy, and we have kept him long, we did not diagnose his back pain in time and he is upset about it he wants to go home to pay his bills He has exhibited paranoid behaviour while in the hospital, yesterday accusing staff of not telling him that his daughter is here, and today trying to keep him against his will. His speech on the other had is clearer. Talking to the Staff it seems he has family h/o schizophrenia. Wbc still up, given pna on CT, will add mrsa coverage, add zyvox to his regime. 07/28 Patient seen and examined, no acute overnight events. Sitting in chair comfortable notes she wants to be discharged. Still has some paranoid thoughts, noted that someone is going to come to clean up the hospital and drive was all out of the hospital. He hears his daughter's voice intermittently. He will transfer to [facility] status, hemodynamically stable. No events on telemetry WBC trending down after addition of Zyvox. Continue the patient on Zyvox and Zosyn for now. Continue speech therapy intervention Start the patient on Seroquel at bedtime, olanzapine to be used I am only in times of agitation The pupils are equal in size, 07/29 Pt seen examined, no acute overniht events, no new complaints, comfortable in b ed, speech is better refuses to go to SNf wants to go home notes has family who can take care of him Case managemetn working on discharge planning wbc trending down. Slept well with seroquel. Pertinent ROS: Denies headache, dizziness Denies chest pain, palpitations Denies cough or shortness of breath Denies abdominal pain, nausea or vomiting. - Constitutional Vitals: Vital Signs Temp Pulse Resp BP Pulse Ox 96.1 F L 85 18 125/82 92 07/29/18 11:09 07/29/18 11:09 07/29/18 11:09 07/29/18 11:09 07/29/18 11:09 Period Temp Pulse Resp BP Sys/Madrigal Pulse Ox Last 24 Hr 96.1 F-98.4 F 74-92 18-32 125-160/80-96 90-93 Intake and Output 07/29/18 07/29/18 07/29/18 05:59 13:59 21:59 Intake Total 400 / 1140 230 / 470 240 / 470 Output Total 325 / 1076 Balance 75 / 64 230 / 470 240 / 470 Intake & Output: Intake & Output 07/29/18 07/29/18 07/29/18 05:59 13:59 21:59 Intake Total 400 / 1140 230 / 470 240 / 470 Output Total 325 / 1076 Balance 75 / 64 230 / 470 240 / 470 Intake: IV 50 / 50 Zosyn 3.375 gm In Dextrose 5% 50 / 50 in Water 50 ml @ 100 mls/hr IV Q8H [facility] Rx#:[id number] Oral 400 / 940 180 / 420 240 / 420 Output: Void Amount 325 / 1075 Other: Meal Nourishment/Supplement Percent of Meal Consumed 100% Feeding Ability Independent Exam: Constitutional; Afebrile, cooperative, alert, not in distress. Eyes- No icterus, , No periorbital swelling left pupil slightly larger today than right. Ears- Ext ear normal, hearing normal to conversation. Neck- Midline trachea, supple Respiratory system: Air Entry equal on both sides, No crackles or wheezing, no rhonchi. CVS- Rate rhythm regular, S1,S2 heard, no gallop, no rub. Abdomen- Soft nontender abdomen, no organomegaly, no tenderness, no guarding or rigidity, [employer]SM[employer] INS[employer]- AOOx2, moving all extremities, no gross focal deficit noted. Medical - PN: Obj Da - Labs CBC & Chem 7: 07/29/18 04:35 07/29/18 04:35 Labs: Abnormal Lab Results 07/29/18 07/29/18 07/28/18 04:35 04:35 04:20 WBC 13.9 H RBC 3.58 L Hgb 11.5 L Hct 34.4 L Gran % 80.4 H Lymph % (Auto) 8.1 L Gran # 11.2 H Lymph # (Auto) 1.1 L Cassia # (Auto) 1.5 H BUN 23 H 29 H Creatinine 1.9 H 1.8 H Glucose 166 H Calcium 8.5 L Lactate Dehydrogenase 271 H Albumin 3.0 L 3.0 L Globulin Albumin/Globulin Ratio 0.8 L 0.9 L 07/28/18 07/27/18 07/27/18 04:20 04:10 04:10 WBC 16.3 H 19.1 H RBC 3.60 L 4.01 L Hgb 11.6 L 12.9 L Hct 34.5 L 38.8 L Gran % 85.7 H 82.3 H Lymph % (Auto) 4.9 L 5.5 L Gran # 14.0 H 15.7 H Lymph # (Auto) 0.8 L 1.0 L Cassia # (Auto) 1.5 H 2.2 H BUN 32 H Creatinine 1.9 H Glucose 118 H Calcium Lactate Dehydrogenase 387 H Albumin Globulin 4.0 H Albumin/Globulin Ratio 0.8 L Meds: Medications Acetaminophen (Tylenol) 650 mg PO Q6HP PRN PRN Reason: PAIN/FEVER > 101 Last Admin: 07/29/18 08:55 Dose: 650 mg Documented by: Albuterol/Ipratropium (Duoneb) 3 ml NEB Q4HP PRN PRN Reason: Bronchospasm Albuterol/Ipratropium (Duoneb) 3 ml NEB Q6HRT [facility] Last Admin: 07/29/18 13:29 Dose: 3 ml Documented by: Amlodipine Besylate (Norvasc) 10 mg PO DAILY [facility] Last Admin: 07/29/18 08:54 Dose: 10 mg Documented by: Aspirin (Aspirin) 81 mg PO DAILY [facility] Last Admin: 07/29/18 08:55 Dose: 81 mg Documented by: Atorvastatin Calcium (Lipitor) 40 mg PO HS [facility] Last Admin: 07/28/18 20:50 Dose: 40 mg Documented by: Chlorhexidine Gluconate (Peridex) 15 ml SWABMOUTH BID [facility] Last Admin: 07/29/18 08:55 Dose: 15 ml Documented by: Dextrose (Dextrose 50%) 50 ml IV UD PRN PRN Reason: Hypoglycemia Diagnostic Test (Pha) (Accu-Chek) 1 each FS [facility] Last Admin: 07/29/18 11:39 Dose: 1 each Documented by: Doxazosin Mesylate (Cardura) 4 mg PO HS [facility] Last Admin: 07/28/18 20:50 Dose: 4 mg Documented by: Heparin Sodium (Porcine) (Heparin) 5,000 unit SQ Q12 [facility] Last Admin: 07/29/18 08:52 Dose: 5,000 unit Documented by: Hydralazine HCl (Apresoline) 50 mg PO TID [facility] Last Admin: 07/29/18 14:26 Dose: 50 mg Documented by: Potassium Chloride 40 meq/ (Dextrose) 520 mls @ 130 mls/hr IV UD PRN PRN Reason: K+ = or < 3.5 Piperacillin Sod/Tazobactam (Sod 3.375 gm/ Dextrose) 50 mls @ 100 mls/hr IV Q8H [facility] Last Admin: 07/29/18 14:26 Dose: 100 mls/hr Documented by: Insulin Human Lispro (Humalog) 0 unit SQ [facility]; Protocol Last Admin: 07/29/18 11:43 Dose: 6 units Documented by: Linezolid (Zyvox) 600 mg PO Q12 [facility] Last Admin: 07/29/18 08:53 Dose: 600 mg Documented by: Loperamide HCl (Imodium) 2 mg PO PRN PRN PRN Reason: Diarrhea Metoprolol Succinate (Toprol Xl) 100 mg PO DAILY [facility] Last Admin: 07/29/18 08:54 Dose: 100 mg Documented by: Multivit/Ca Carb/B Cmplx/FA/Prenat (Diatx) 1 tab PO DAILY [facility] Last Admin: 07/29/18 08:54 Dose: 1 tab Documented by: Nicotine (Nicoderm) 21 mg TOPICAL DAILY@1000 [facility] Last Admin: 07/29/18 08:55 Dose: 21 mg Documented by: Olanzapine (Zyprexa) 5 mg IM Q2HP PRN PRN Reason: Agitation Ondansetron HCl (Zofran) 4 mg IV Q4HP PRN PRN Reason: Nausea And Vomiting Potassium Chloride (Potassium Chloride) 15 meq PT BIDCC [facility] Last Admin: 07/29/18 08:52 Dose: 15 meq Documented by: Quetiapine Fumarate (Seroquel) 50 mg PO HS [facility] Last Admin: 07/28/18 20:49 Dose: 50 mg Documented by: Sodium Chloride (Saline Flush) 10 ml IV Q8 [facility] Last Admin: 07/29/18 14:26 Dose: 10 ml Documented by: Thiamine HCl (Vitamin B1) 100 mg PO DAILY [facility] Last Admin: 07/29/18 08:53 Dose: 100 mg Documented by: Medical - PN: A/P - Time Spent With Patient Total time spent is greater than 50% in coordination of care (as documented) at patient's floor/unit and/or counseling patient: - Narrative A/P Narrative: A: Lacunar infarcts/Microvascular disease -Varied etiology, given pt risk factors, likely vascular in nature, -carotid usg neg for severe stenosis, does have atherosclerosis. -started on asa and statin -LDL 78, a1c 6, tsh normal - esr and crp is elevated, could be from pneumonia, but given concern for autoimmune process on mri, check zenia, anca, c3 and c4 are normal. -outpatient Neurology referral for further evaluation -age of lesions not sure, within 7 days? could explain some dysphagia, /pupil inequality -zenia, anca pending, Primary INFLUENZA A Pneumonia) -resolved, s/p treatment Aspiration Pneumonitis/ health care associated pneumonia -now on zyvox and zosyn , zyvox day 2, zosyn day 4. -wbc trending down. Acute hypoxic respiratory failure: 2/2 above -Intubated early on 07/15 & extubated 1/2 to bipap, -low PCT, nonproductive cough, afebrile -echo with normal EF, unable to assess diastolic fxn and pulmonary artery pressure -now on room air. - stable now. -seen by pulm Lactic acidosis: 2/2 hypoxia, resolved RADHA on likely CKD (unknown baseline, but suspect mid to high 1's): ATN from hypoxia -renal u/s with chronic dz b/l, no obstruction , stenosis of left renal aa -UOP stable -creat is 1.8 07/28 -outpatient follow up. Likely COPD, with exacerbation: based on smoking history and CXR appearance - on bronchodilator, no wheeze on exam Encephalopathy (worse at night): ?suspected ETOH with withdrawal vs likely sleep deprivation compounded by underlying dementia + icu delerium -UDS neg -CT brain with small lacunar infarct left caudate (not acute), mild atrophy frontal lobes, and chronic ischemic changes. 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 -MRI showed some acute lacunar infarcts too, which may have contributed to his symptoms. -he is also exhibhiting paranoid behaviour, family history of schizophrenia? not sure what his baseline is, -his behavour could also be 2/2 sleep deprivation + likely underlying dementia (vascular given CT findings) - slow improvement. -continue thiamine supplementation -started on seroquel at bed time, IM zyprexa prn for agitation. with good results so far *Sleep Deprivation: -conservative management Hypokalemia -resolved Tobacco abuse: -outpatient management HTN: -bp uncontrolled, on hydralazine 50tid, norvas 10 and metoprolol 100 daily (xr), start on doxazosin qhs and it seems to have helped. increase doxazosin to 4mg qhs -bp is much better now. Oropharyngeal Dysphagia: -appreciate speech therapy input, continue rehab -MBS done, -Diet per ST, -pt/ot -ppx: heparin pt refused snf placement, will see if he can be discharged home with family. Medical - PN: Qual - VTE Deep Vein Thrombosis/Pulmonary Embolism Present on Admission: No
[2018-07-29] MEDS: DOXAZOSIN 1 MG TABLET PO SCH (21:57)
[2018-07-29] MEDS: QUEtiapine 25 MG TABLET PO SCH (21:58)
[2018-07-29] MEDS: ATORVASTATIN 20 MG TABLET PO SCH (21:59)
[2018-07-30] MEDS: IPRATROPIUM/ALBUTEROL 3 ML AMPUL.NEB NEB SCH ×2 (03:21→07:02)
[2018-07-30 05:48] LABS: Basophils # (Auto) 0.1 K/mcL (0.0-0.3); Basophils % (Auto) 0.7 % (0.0-2.0); Eosinophils # (Auto) 0.1 K/mcL (0.0-0.7); Eosinophils % (Auto) 0.6 % (0.0-7.0); Lymphocytes # (Auto) 1.3 K/mcL (1.5-4.8); Lymphocytes % (Auto) 10.2 % (15.5-49.0); Monocytes # (Auto) 1.6 K/mcL (0.1-0.9); Monocytes % (Auto) 12.5 % (1.0-12.0); Platelet Count 420 K/mcL (140-440); Red Cell Distribution Width 13.4 % (11.5-14.5)
[2018-07-30] MEDS: PIPERACILLIN SODIUM/TAZOBACTAM 3.375 GM in DEXTROSE 5% IN WATER 50 ML IV SCH (05:50)
[2018-07-30 06:27] LABS: ALT/SGPT 22 U/l (0-40); Albumin 3.2 gm/dL (3.2-5.2); Albumin/Globulin Ratio 0.8 (1.0-2.3); Alkaline Phosphatase 59 U/L (39-117); Bilirubin,Direct < 0.2 mg/dL (0.0-0.3); Blood Urea Nitrogen 25 mg/dl (6-20); Gamma Glutamyl Transpeptidase 46 U/L (8-61); Uric Acid 5.4 mg/dL (2.5-8.0)
[2018-07-30] MEDS: 0.9 % SODIUM CHLORIDE 10 ML SYRINGE IV SCH (07:08)
[2018-07-30] MEDS: INSULIN LISPRO 1 UNIT/0.01 ML UNIT SQ SCH ×2 (07:09→11:45)
[2018-07-30] MEDS: POTASSIUM CHLORIDE 20 MEQ/15 ML ML PT SCH (09:07)
[2018-07-30] MEDS: LINEZOLID 600 MG TABLET PO SCH (09:08)
[2018-07-30] MEDS: ASPIRIN 81 MG TAB.CHEW PO SCH (09:08)
[2018-07-30] MEDS: FOLIC ACID/VITAMIN B COMP W-C 1 TAB TABLET PO SCH (09:09)
[2018-07-30] MEDS: amLODIPine 10 MG TABLET PO SCH (09:09)
[2018-07-30] MEDS: THIAMINE 100 MG TABLET PO SCH (09:09)
[2018-07-30] MEDS: METOPROLOL SUCCINATE 50 MG TAB.XL.24H PO SCH (09:10)
[2018-07-30] MEDS: hydrALAZINE 25 MG TABLET PO SCH (09:10)
[2018-07-30] MEDS: ACETAMINOPHEN 325 MG TABLET PO PRN (09:10)
[2018-07-30] MEDS: NICOTINE 21 MG PATCH TOPICAL SCH (09:11)
[2018-07-30] MEDS: HEPARIN 5,000 UNIT/ML VIAL SQ SCH (09:11)
[2018-07-30] MEDS: CHLORHEXIDINE GLUCONATE 1 ML ORAL.SOL SWABMOUTH SCH (09:11)
--- NOTE | 2018-07-30 12:01 | Discharge Summary ---
Medical - DS: Prov Patient information: Note initiated : 07/30/18 at 11:53 am Service Date, if different from initiated Date: [] Patient: Breezy Barnard 58 y/o M admitted on 07/14/18 for Cough, body aches. Chief Complaint: [] Date of admission: 07/14/18 19:46 Discharge date: 07/30/18 Primary care physician: PCP No Consults: 07/17/18 12:14 Consult to Physician [CONS] Routine Comment: Consulting Provider: Leo Huston Reason For Exam: Physician to Consult 07/14/18 Consult to Physician [CONS] Stat Comment: Consulting Provider: Brian Guzman Reason For Exam: Physician to Consult Discharging clinician: Kenneth Marley Medical - DS: Meds - Discharge Medications Prescriptions: amLODIPine [Norvasc] 10 mg PO DAILY #90 tab Amoxicillin/Potassium Clav [Augmentin] 875 mg PO Q12H #8 tab Aspirin 81 mg PO DAILY #90 tab Atorvastatin [Lipitor] 40 mg PO HS #90 tab Doxazosin [Cardura] 4 mg PO HS #90 tab Folic Acid/Vitamin B Comp W-C [Diatx] 1 tab PO DAILY #100 tab hydrALAZINE [Apresoline] 50 mg PO TID #180 tab Ipratropium/Albuterol [Duoneb] 3 ml NEB Q6HRT #120 ampul.neb Linezolid [Zyvox] 600 mg PO Q12 #8 tab Metoprolol Succinate [Toprol Xl] 100 mg PO DAILY #90 tab.xl.24h QUEtiapine [Seroquel] 50 mg PO HS #90 tab Thiamine [Vitamin B1] 100 mg PO DAILY #100 tab Active and Home Medications: Home Medications No Known Home Meds 07/14/18 [History Confirmed 07/14/18 Last Taken Unknown] Medical - DS: Hosp Hospital course: Mr. Barnard is a 58 year old M who presents with cough shortness of breath malaise for 3-4 days. He reports he is had a cough for about 3 days which she says is dry. He has been around a relative that was sick, however, he denies any fevers or chills. Denies any myalgias does have worsening knee pain. That is a chronic injury and is chronic chronic back pain. He has shortness of breath both states that it actually is little bit better than it was a couple days ago. He says he had a hard time sleeping the past 3 nights that the main reason he came in. He denies having any shortness of breath when he lays flat on his back, no orthopnea. Denies any edema. Denies any history of heart or lung disease. States he is urinating just fine and that is of pale yellow. Last time he saw a primary care provider was he says 20 years ago. When he arrived in the ER his oxygen saturations were in the high 70s on room air. He did receive several breathing treatments which she says did help him but he still was quite tachypneic and using accessory muscles and was subsequently put on BiPAP. Chest x-ray with some cephalization and [place] B line patient was given 40 of Lasix and put out 1000 in the Sr bag. I saw him in the ICU he had 400 additional cc in the bag. Also found to be hypertensive in the ED. He does not have any known medical conditions and does not take any home medications. 07/15 Patient can continued to become more more tachypneic last night until the need for intubation was seen. Currently sedated on the vent. No acute distress. Titrating down FiO2. Respiratory rate 20s-30. 07/16 Patient had increased urine output last night. Vent parameters improving. Sedated but awakens partially to voice and moves extremities. Good peak and plateau pressures and on compliance 48. Sedation vacation and weaning trial. 12 No issues overnight. Patient stable on the vent without sedation and comfortable. Awake on vent follows commands. Good vent parameters and performing weaning trial this morning. With likely extubation. 07/18 Intubated yesterday placed on BiPAP for most of the day and overnight. Patient seen by speech therapy and put on dysphagia diet. Patient was breakfast this morning and on nasal cannula and doing quite well. Denies any shortness of breath has occasional cough no other complaints. 07/19 Taken off oxygen this morning now on room air. Sitting up eating breakfast. Does have a cough he says he always has a cough does not really notice much shortness of breath. No events overnight other than not sleeping very well. 07/20 Patient significantly confused delirious and restless. She was score 14. On benzodiazepines/antipsychotics. Persistent elevation blood pressure around 160. Will need outpatient follow-up with PCP. Potassium at 3 on oral iron replaceme nt. No major telemetry events. 07/21-patient continues to be hypertensive and actively withdrawing with CIWAA scores in 20. Started on Precedex drip. Continue critical care management for high risk DT. Systolics has improved to 160 since. Continue IV thiamine. Consider neuroimaging if continues to worsen clinically more labored this mid morning and started back on bipap. 07/22 Off BiPAP to oxymask at 3 L this morning. Respiratory rate 20s. And saturations mid 90s. Following some commands. And weaning down Precedex. 07/23 Doing quite well this morning. Sitting up eating breakfast with dysphagia diet. He is on room air coherent and carrying a conversation on and I am unable to understand his verbalizations. When asked about alcohol intake he says he does drink moonshine only once a week. No other liquor/beer. Does have a cough nonproductive at this time. Denies shortness of breath. 07/24 Pt seen examined, was in bed, noted that he was short of breath in the morning, but better during rounds. able to hold a conversation, but speech is still slow. He is able to answer questions now, which looks like a improvement, patient unfortunately had shortness of breath this morning, blood pressure still uncontrolled and WBC count that trended up. Chest x-ray shows increased interstitial markings. Discontinue IV fluids given round of Lasix. I again tried to see how much he drinks and he denied any heavy use of alcohol. 07/25 Patient seen and examined, no acute overnight events, labs stable, WBC elevated but stable. Creatinine is stable. Patient is still on oxygen supplementation, at 2 L. Chest x-ray done today shows slight worsening of pulmonary interstitial markings. CT chest done shows diffuse interstitial involvement. Likely aspiration. Patient is clinically improving, is able to ambulate well and feels better. Patient most likely has chemical pneumonitis however will cover with antibiotics 07/26 Pt seen examined, during change in status earlyi n AM and also during rounds See event note for details THis AM pt seems more back to baseline status, upset, and verbal in his communications Pupils remain unequal, but otherwise non focal exam MRI head shows multiple lesiions, some acute, some chronic, a wide differential provided. will initiate basic workup, likely the patient has lacunar infarcts. check lipid panel, tsh, a1c, start pt on aSA, and statin, get carotid USG Will refer to neurology as outpatient for further evaluation. WBC count is still elevated by stable. 07/27 Pt seen examined, no acute overnight issues this AM sitting in chair, comfortable, Pupils are symmetrical now. no events on tele He wants to go home today, notes he came in for a colonoscopy, and we have kept him long, we did not diagnose his back pain in time and he is upset about it he wants to go home to pay his bills He has exhibited paranoid behaviour while in the hospital, yesterday accusing staff of not telling him that his daughter is here, and today trying to keep him against his will. His speech on the other had is clearer. Talking to the Staff it seems he has family h/o schizophrenia. Wbc still up, given pna on CT, will add mrsa coverage, add zyvox to his regime. 07/28 Patient seen and examined, no acute overnight events. Sitting in chair comfortable notes she wants to be discharged. Still has some paranoid thoughts, noted that someone is going to come to clean up the hospital and drive was all out of the hospital. He hears his daughter's voice intermittently. He will transfer to [facility], hemodynamically stable. No events on telemetry WBC trending down after addition of Zyvox. Continue the patient on Zyvox and Zosyn for now. Continue speech therapy intervention Start the patient on Seroquel at bedtime, olanzapine to be used I am only in times of agitation The pupils are equal in size, 07/29 Pt seen examined, no acute overniht events, no new complaints, comfortable in bed, speech is better refuses to go to SNf wants to go home notes has family who can take care of him Case management working on discharge planning wbc trending down. Slept well with seroquel. 07/30 Pt seen examined, initially wanting to go home , but later daugther convinced him for SNF placement will discharge to snf wbc trending down, will continue abx for another 4 days A/P A: Lacunar infarcts/Microvascular disease -Varied etiology, given pt risk factors, likely vascular in nature, -carotid usg neg for severe stenosis, does have atherosclerosis. -started on asa and statin -LDL 78, a1c 6, tsh normal -outpatient Neurology referral for further evaluation -zenia, anca pending, doubt if this is the underlying etiology Primary INFLUENZA A Pneumonia) -resolved, s/p treatment Aspiration Pneumonitis/ health care associated pneumonia -discharge on po zyvox and augmentin for another 4 days. -wbc trending down. Acute hypoxic respiratory failure: 2/2 above -Intubated early on 07/15 & extubated 1/2 to bipap, -echo with normal EF, unable to assess diastolic fxn and pulmonary artery pressure -now on room air. RADHA on likely CKD (unknown baseline, but suspect mid to high 1's): ATN from hypoxia -renal u/s with chronic dz b/l, no obstruction , stenosis of left renal aa creat is 1.8 at discharge, outaptient nephrology follow up Likely COPD, with exacerbation: based on smoking history and CXR appearance - on bronchodilator, no wheeze on exam Encephalopathy (worse at night): ?suspected ETOH with withdrawal vs likely sleep deprivation compounded by underlying dementia + icu delerium -UDS neg -CT brain with small lacunar infarct left caudate (not acute), mild atrophy frontal lobes, and chronic ischemic changes. 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 -MRI showed some acute lacunar infarcts too, which may have contributed to his symptoms. -he is also exhibiting paranoid behavior, family history of schizophrenia? not sure what his baseline is, -his behavior could also be 2/2 sleep deprivation + likely underlying dementia (vascular given CT findings) - slow improvement. -continue thiamine supplementation -started on seroquel at bed time, IM zyprexa prn for agitation. with good results so far -mental status much better at the time of discharge. HTN: -bp uncontrolled, on hydralazine 50tid, norvas 10 and metoprolol 100 daily (xr), start on doxazosin qhs and it seems to have helped. increase doxazosin to 4mg qhs -bp is much better now. Oropharyngeal Dysphagia: -appreciate speech therapy input, continue rehab -MBS done, Paitent is stable for d/c to SNF Discharge diagnosis: cva, Respiratory failure, Pneumonia, Encephalopathy - Time Spent with Patient Total time spent providing and/or coordinating discharge services: Greater than 30 minutes Medical - DS: Exam - Constitutional Vitals: Vital Signs Temp Pulse Pulse Resp BP BP Pulse Ox 07/30/18 11:47 98.1 F 82 22 146/88 94 07/30/18 07:10 97.8 F 89 24 H 170/98 93 07/30/18 04:39 98.3 F 88 32 H 162/96 92 07/29/18 19:20 97.8 F 87 36 H 167/96 93 07/29/18 18:45 92 H 20 07/29/18 15:42 96.9 F L 79 18 120/87 93 Intake and Output 07/29/18 07/30/18 07/30/18 21:59 05:59 13:59 Intake Total 1500 / 2940 1210 / 2940 970 / 970 Output Total 700 / 700 Balance 800 / 2240 1210 / 2240 970 / 970 Intake: IV 50 / 150 50 / 150 50 / 50 Zosyn 3.375 gm In Dextrose 5% 50 / 150 50 / 150 50 / 50 in Water 50 ml @ 100 mls/hr IV Q8H [facility] Rx#:[id number] Oral 1450 / 2790 1160 / 2790 920 / 920 Output: Void Amount 700 / 700 Other: Meal Dinner Breakfast Percent of Meal Consumed 100% 100% Feeding Ability Independent Independent Urine Appearance Clear Urine Color Light Tracy Urine Odor Normal Stool Size Large Stool Color Brown Stool Consistency Formed # Voids 1 1 1 # Bowel Movements 1 Weight 131 lb Additional comments: Constitutional; Afebrile, cooperative, alert, not in distress. Respiratory system: Air Entry equal on both sides, No crackles or wheezing, no rhonchi. CVS- Rate rhythm regular, S1,S2 heard, no gallop, no rub. Abdomen- Soft nontender abdomen, no organomegaly, no tenderness, no guarding or rigidity, PLAYGROUND ATTENDANT- AOOx2, moving all extremities, no gross focal deficit noted. Medical - DS: Data Labs on day of discharge: Labs from last 24 hours 07/30/18 07/30/18 04:20 04:20 WBC 13.0 H RBC 3.60 L Hgb 11.5 L Hct 34.9 L MCV 97.0 MCH 32.0 MCHC 33.0 RDW 13.4 Plt Count 420 MPV 9.0 Gran % 76.0 Lymph % (Auto) 10.2 L Terry % (Auto) 12.5 H Eos % (Auto) 0.6 Baso % (Auto) 0.7 Gran # 9.8 H Lymph # (Auto) 1.3 L Terry # (Auto) 1.6 H Eos # (Auto) 0.1 Baso # (Auto) 0.1 Sodium 137 Potassium 3.7 Chloride 99 Carbon Dioxide 24 Anion Gap 14.0 BUN 25 H Creatinine 1.8 H GFR Calculation 41 Glucose 100 Uric Acid 5.4 Calcium 8.6 Phosphorus 3.7 Magnesium 2.0 Total Bilirubin 0.4 Direct Bilirubin < 0.2 GGT 46 AST 24 ALT 22 Alkaline Phosphatase 59 Lactate Dehydrogenase 302 H Total Protein 7.0 Albumin 3.2 Globulin 3.8 H Albumin/Globulin Ratio 0.8 L Triglycerides 54 Medical - DS: A/P - Patient/Caregiver Discharge Instructions Activity: as per physical therapy, increase activity as tolerated Diet: Cardiac Additional Instructions: OT/ST/PT at rehab center FOllow up with nephrology in 2-4 weeks Follow up with neurology in 2-4 weeks, Dr Ferrell GO to the ER if worsening conditino, chest pain ,shortness of breath or any other acute concern. - Follow up Plan Follow up with: No,PCP [Primary Care Provider] - Disposition: Xfer SNF Prognosis: Fair Rehab Potential: Fair I certify that the patient requires SNF services: Yes Overall status at discharge: patient is progressing back to baseline Medical - DS: Qual - VTE Deep Vein Thrombosis/Pulmonary Embolism Present on Admission: No
[2018-07-31 06:51] LABS: Cyclic Citrullinated Peptide < 16 UNITS
[2018-07-31 14:53] LABS: ANCA Screen NEGATIVE; Myeloperoxidase Antibody <1.0 AI (<1.0)
== END 2018-07-30 13:16 | DRG 208 ==
LOC: ED 16:45 → ICU 19:46 → MEDSUR 07-19 13:02 → ICU 07-19 14:23 → MEDSUR 07-23 09:13
PROVIDERS: ADMIT Internal Medicine; ATTEND Internal Medicine